=== PATIENT | female | born 1940 | race Asian ===

== ENCOUNTER 2016-07-13 13:29 | Inpatient (IN) | payer OTHER ==
[~2016-07-13] VITALS: Ht 154.9 cm; Wt 69.9 kg
[~2016-07-13 13:29] MED LIST: BENADRYL ALLERG25 M1 PO; BUFFERIN LOW DO81 MG PO; Benadryl TOP; ELAVIL25 MG PO; HYGROTON 25MG T25 MG PO; LANTUS SOLOS100 U/ML SC; LASIX20 MG PO; LEVEMIR 10100 UNITS/ SC; LEVEMIR FLEX100 U/M1 SC; LEVEMIR100 U/ML SC; LIDODERM1 EACH TOP; LYRICA25 MG PO; MYCOSTATIN POWD15 GM TOP; NORVASC 5MG TAB5 MG PO; NOVOLOG100 U/ML SC; POTASSIUM CHLO10 ME1 PO; POTASSIUM CHLO10 ME2 PO; POTASSIUM CHLOR PO; PRAVASTATIN SOD40 M1 PO; PROTONIX 40MG T40 MG PO; SYNTHROID50 MCG PO; TRADJENTA5 MG PO; VITAMIN D1000 IU PO; ZETIA10 MG PO
--- NOTE | 2016-07-13 13:35 | NUR ---
75 YEAR OLD FEMALE TO ER FROM [facility] BY AMBULANCE FOR COUGH X 3 DAYS AND THIS AM SPUTUMM NOTED TO BE STRAKED WITH LIGHT BLOOD. PT ALERT AND ORIENTED AND DOES NOT SPEAK IRISH, SON AT BEDSIDE
--- NOTE | 2016-07-13 13:45 | ED GENERAL ADULT ---
History of Present Illness General Chief Complaint: Upper Respiratory Sx/Fever Stated Complaint: COUGH/BLOOD SPUTUM Source: family, old records Exam Limitations: dementia, language barrier Vital Signs & Intake/Output Vital Signs & Intake/Output Vital Signs Date Time Temp Pulse Resp B/P Pulse O2 O2 Flow FiO2 Ox Delivery Rate 07/13 1722 96.7 79 18 139/65 97 07/13 1451 98.1 74 18 148/72 99 Room Air 07/13 1355 99 Room Air 07/13 1333 97.0 84 18 139/61 98 Room Air Allergies Coded Allergies: NO KNOWN ALLERGIES (08/01/14) Reconcile Medications Amitriptyline Hydrochloride (Elavil) 25 MG TAB 25 MG PO AT BEDTIME LEG PAIN Aspirin (Children's Aspirin) 81 MG TAB 81 MG PO DAILY HEART Cholecalciferol (Vitamin D3) 1,000 IU TAB 1 TAB PO DAILY BONES (Reported) Citalopram Hydrobromide (Citalopram HBr) 10 MG TABLET 1 TAB PO DAILY MENTAL HEALTH (Reported) Esomeprazole (Nexium) 40 MG CAPSULE.DR 1 CAP PO DAILY GI (Reported) Ezetimibe (Zetia) 10 MG TAB 1 TAB PO DAILY CHOLESTEROL (Reported) Furosemide 80 MG TABLET 1 TAB PO BID WATER PILL (Reported) Insulin Aspart, Recombinant (Novolog) 100 U/ML FELTON 0 UNITS SC TIDAC/HS diabetes Mealtime sliding scale: Fingerstick less than 80: initiate hypoglycemia protocol 80-150: 6 UNITS 151-200: 7 units 201-250: 8 units 251-300: 10 units 301-350: 12 units 351-400: 14 units more than 400: plus 16 units Bedtime sliding scale: Fingerstick Less than 80: initiate hypoglycemia protocol 80-250: no change 251-300: 2 units 301-350: 3 units 351-400: 4 units Insulin Detemir (Levemir) 100 UNIT/ML VIAL 60 U SC BID DM (Reported) Levothyroxine Sodium (Synthroid) 50 MCG TABLET 1 TAB PO DAILY AC THYROID ( Reported) Lidocaine (Lidoderm) 5 % ADH..PATCH 1 PAT TOP DAILY PAIN (Reported) may wear up to 12 hours Mirtazapine 15 MG TABLET 0.5 TAB PO QPM SLEEP (Reported) Potassium Chloride [address] TAB PO DAILY SUPPLEMENT (Reported) Pregabalin (Lyrica) 25 MG CAP 25 MG PO TID LEG PAIN Sitagliptin Phosphate (Januvia) 25 MG TABLET 1 TAB PO DAILY DM (Reported) Triage Note: 75 YEAR OLD FEMALE TO ER FROM [facility] BY AMBULANCE FOR COUGH X 3 DAYS AND THIS AM SPUTUMM NOTED TO BE STRAKED WITH LIGHT BLOOD. PT ALERT AND ORIENTED AND DOES NOT SPEAK IRAQI, SON AT BEDSIDE Triage Nurses Notes Reviewed? yes Onset: Abrupt Duration: day(s): (3), constant, continues in ED Timing: recent history HPI: 75-year-old female comes into emergency room from nursing facility for cough this been going on for the past few days with mucus production. Patient has been increasingly confused. Patient has a history of Alzheimer's dementia and also does not speak any R[place]an so history is very limited. Son used for translation. Patient currently denies any fever vomiting chest pain shortness of breath. Denies any abdominal pain. Denies any other associated symptoms. (SHAY DUFFY) Past History Travel History Traveled to [place] past 21 day No Medical History Any Pertinent Medical History? 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 History of MRSA: Yes History of VRE: No History of CDIFF: No Pneumonia Vaccine: 05/19/15 Influenza Vaccine: 05/22/15 Surgical History Surgical History: non-contributory Psychosocial History Who do you live with Son Services at Home None What is your primary language Laurie Tobacco Use: Never used ETOH Use: denies use Illicit Drug Use: denies illicit drug use Family History Family History, If Any: BROTHER, ; Cause: History of chronic renal failure. Relation not specified for: FH: kidney failure Hx Contributory? No (SHAY DUFFY) Review of Systems Review of Systems Constitutional: Reports: no symptoms. EENTM: Reports: no symptoms. Respiratory: Reports: see HPI. Cardiovascular: Reports: no symptoms. GI: Reports: no symptoms. Genitourinary: Reports: no symptoms. Musculoskeletal: Reports: no symptoms. Skin: Reports: no symptoms. Neurological/Psychological: Reports: see HPI. Hematologic/Endocrine: Reports: no symptoms. Immunologic/Allergic: Reports: no symptoms. All Other Systems: Reviewed and Negative (SHAY DUFFY) Physical Exam Physical Exam General Appearance: alert, awake, mild distress Head: atraumatic, normal appearance Eyes: Bilateral: normal appearance, EOMI. Ears, Nose, Throat: normal pharynx, normal ENT inspection Neck: normal inspection, full range of motion Respiratory: normal breath sounds, no respiratory distress Cardiovascular: regular rate/rhythm Gastrointestinal: soft, non-tender Back: normal inspection Extremities: normal inspection, no edema Neurologic/Psych: awake, alert Skin: intact, PATIENT IS ERYTHEMATOUS Core Measures ACS in differential dx? Yes CVA/TIA Diagnosis: No Severe Sepsis Present: No Septic Shock Present: No (SHAY DUFFY) Progress Differential Diagnoses I considered the following diagnoses in my evaluation of the patient: Pneumonia , bronchitis, pulmonary embolism, TN, sepsis, Plan of Care: Orders Procedure Date/time Status Heart Healthy Diet 07/13 D Active Patient Data 07/13 1729 Active Chamberlain, Insertion/Removal/Asses 07/13 1724 Active CULTURE,URINE 07/13 1724 Active Admit to inpatient 07/13 1520 Active Vital Signs 07/13 1520 Active Code Status 07/13 1520 Active Telemetry/Chemistry Technician 07/13 1444 Active Add-on Test (ER Only) 07/13 1439 Active B-TYPE NATRIURETIC PEP (BNP) 07/13 1409 Complete Intake & Output 07/13 1354 Active URINALYSIS 07/13 1336 Complete TROPONIN LEVEL 07/13 1336 Complete COMPREHENSIVE METABOLIC PANEL 07/13 1336 Complete CBC WITHOUT DIFFERENTIAL 07/13 1336 Complete EKG 07/13 1336 Active Laboratory Tests 07/13/16 1554: Urine Color STRAW, Urine Clarity CLEAR, Urine pH 6.5, Ur Specific [place] <= 1.005, Urine Protein NEG, Urine Ketones NEG, Urine Nitrite NEG, Urine Bilirubin NEG, Urine Urobilinogen 0.2, Ur Leukocyte Esterase SMALL H, Ur Microscopic SEDIMENT EXAMINED, Urine RBC 1-3, Urine WBC 3-5 H, Ur Epithelial Cells RARE, Urine Mucus RARE, Urine Hemoglobin MOD H, Urine Glucose NEG 07/13/16 1409: Anion Gap 11, Estimated GFR 14 L, BUN/Creatinine Ratio 13.0, Glucose 108 H, Calcium 8.1 L, Total Bilirubin 0.6, AST 24, ALT 30, Alkaline Phosphatase 97, Troponin I 0.02, Hbw-G-Wdwvyubmctx Pept 362 H, Total Protein 8.0, Albumin 3.6, Globulin 4.4 H, Albumin/Globulin Ratio 0.8 L, CBC w Diff NO MAN DIFF REQ, RBC 3.74 L, MCV 87.9, MCH 29.2, RDW 15.6 H, MPV 7.4, Gran % 68.1, Lymphocytes % 18.5 L, Monocytes % 8.6, Eosinophils % 4.4, Basophils % 0.4, Absolute Granulocytes 6.4, Absolute Lymphocytes 1.7, Absolute Monocytes 0.8 H, Absolute Eosinophils 0.4, Absolute Basophils 0, PUBS MCHC 33.2 Microbiology 07/13 1724 URINE ROUT: Urine Culture - ORD Diagnostic Imaging: Viewed by Me: Radiology Read. Discussed w/RAD: Radiology Read. Radiology Impression: SERVICE DATE: 07/13/16 EXAM TYPE: RAD - XRY- PORTABLE CHEST XRAY EXAMINATION: XR PORTABLE CHEST CLINICAL INFORMATION: Cough. Assess for pneumonia. COMPARISON: 05/21/2015 TECHNIQUE: Portable AP view of the chest was obtained. FINDINGS: Heart size remains mildly prominent. Low lung volumes with diffuse increased prominence and indistinctness to the lung markings are trace pleural effusions at both bases. More focal left lower lobe airspace disease. No ectopic air. IMPRESSION: Findings favor relatively pronounced CHF. Correlate clinically. Question of superimposed left lower lobe pneumonia. Once again an element of chronic underlying lung disease question. DICTATED BY: SOCORRO WASSERMAN MD DATE/TIME DICTATED:07/13/161408 CATERERS HELPER: MAREN DATE/TIME TRANSCRIBED:07/13/161408 Initial ED EKG: normal intervals, normal p-waves, normal sinus rhythm, rate (72) (NABIL LOUIS,SHAY) Departure Departure Disposition: STILL A PATIENT Condition: Stable Clinical Impression Primary Impression: CHF exacerbation Referrals: LINDA WHEELER,MARCUS Gil (PCP/Family) Departure Forms: Customer Survey General Discharge Information Admission Note Spoke With: REGINA WHEELER,SARTHAK Documentation of Exam: Documentation of any treatments & extenuating circumstances including Concerns Regarding Discharge (functional status, medication knowledge or non-compliance, living conditions, etc.) that warrant an admission rather than observation: Patient will require IV Lasix. Cardiac telemetry. Cardiac consultation. Echocardiogram. Possibly antibiotics for superimposed pneumonia. (SHAY DUFFY) PA/SCRUBBING MACHINE OPERATOR Co-Sign Statement Statement: ED Attending supervision documentation- [X] I saw and evaluated the patient. I have also reviewed all the pertinent lab results and diagnostic results. I agree with the findings and the plan of care as documented in the PA's/SCRUBBING MACHINE OPERATOR's documentation. [X] I have reviewed the ED Record and agree with the PA's/SCRUBBING MACHINE OPERATOR's documentation. [] Additions or exceptions (if any) to the PAs/SCRUBBING MACHINE OPERATOR's note and plan are summarized below: [] (FRANSISCO WHEELER,BRIGHT) Critical Care Note Critical Care Note Critical Care Time: 30-74 min (SHAY DUFFY)
[2016-07-13] MEDS ORDERED: NEXIUM40 M1 PO (13:59)
[2016-07-13] MEDS ORDERED: CITALOPRAM HBR10 MG PO (14:00)
[2016-07-13] MEDS ORDERED: JANUVIA25 M1 PO (14:00)
[2016-07-13] MEDS ORDERED: LEVEMIR100 UNIT/1 SC (14:01)
[2016-07-13] MEDS ORDERED: MIRTAZAPINE15 M2 PO (14:02)
[2016-07-13] MEDS ORDERED: FUROSEMIDE80 M1 PO (14:02)
--- NOTE | 2016-07-13 14:15 | RADIOLOGY REPORT ---
EXAMINATION: XR PORTABLE CHEST CLINICAL INFORMATION: Cough. Assess for pneumonia. COMPARISON: 05/21/2015 TECHNIQUE: Portable AP view of the chest was obtained. FINDINGS: Heart size remains mildly prominent. Low lung volumes with diffuse increased prominence and indistinctness to the lung markings are trace pleural effusions at both bases. More focal left lower lobe airspace disease. No ectopic air. IMPRESSION: Findings favor relatively pronounced CHF. Correlate clinically. Question of superimposed left lower lobe pneumonia. Once again an element of chronic underlying lung disease question.
[2016-07-13 14:28] LABS: ABSOLUTE BASOPHIL COUNT 0 /CUMM (0.0-0.2); ABSOLUTE EOSINOPHIL COUNT 0.4 /CUMM (0.0-0.7); ABSOLUTE GRANULOCYTE CT 6.4 /CUMM (1.4-6.5); ABSOLUTE LYMPH COUNT 1.7 /CUMM (1.2-3.4); ABSOLUTE MONOCYTE COUNT 0.8 /CUMM (0.10-0.60); BASOPHIL % 0.4 % (0.0-2.0); EOSINOPHIL % 4.4 % (0-5); GRANULOCYTE % 68.1 % (42.2-75.2); HEMATOCRIT 32.9 % (37-47); MEAN CORPUSCULAR HGB 29.2 PG (27.0-31.0); MEAN CORPUSCULAR HGB CONC 33.2 G/DL (33.0-37.0); MEAN CORPUSCULAR VOLUME 87.9 FL (81.0-99.0); MEAN PLATELET VOLUME 7.4 FL (7.4-10.4); PLATELET COUNT 132 /CUMM (130-400); RBC DISTRIBUTION WIDTH 15.6 % (11.5-14.5); RED BLOOD CELL CT 3.74 /CUMM (4.20-5.40); WHITE BLOOD CELL COUNT 9.5 /CUMM (4.8-10.8)
--- NOTE | 2016-07-13 14:51 | NUR ---
PT AWAKE AND ALERT AT THIS TIME, PER PA PT MEDICATED WITH LASIX 40 MG IV AND 1/2 INCH NITRO PASTE APPLIED TO L SIDE CHEST, PT TO BE ADMITTED FOR CHRONIC RENAL FAILURE AND PULMONARY EDEMA, PT CONTINUES TOCOUGH PRODUCTIVE OF CLEAR SPUTUM WITH NO BLOOD NOTED AT THIS TIME, FAMILY AT BEDSIDE TO TRANSLATE FOR PT . PT DENIES CP OR FEELING SOB. CALL [facility] IN [place], SON STATES THAT PT KNOWS WHEN SHE HAS TO GO TO THE BATHROOM
--- NOTE | 2016-07-13 15:54 | NUR ---
THIS NURSE AT BEDSIDE TO STRAIGHT CATH PT, PT ABD FIRM AND DISTENDED , PTS FAMILY AT BEDSIDE TO EXPLAIN TO PT WHAT THIS NURSE WOULD BE DOING, PT STRAIGHT CATH FOR 1000CC CLEAR YELLOW URINE AT THIS TIME
--- NOTE | 2016-07-13 16:36 | NUR ---
PT TO CT SCAN
--- NOTE | 2016-07-13 17:11 | CT SCAN REPORT ---
EXAMINATION: CT CHEST WITHOUT CONTRAST CLINICAL INFORMATION: Shortness of breath, cough COMPARISON: January 06, [address] scan TECHNIQUE: Multidetector volumetric CT imaging of the chest was done. Axial MIP volume rendering provided. Sagittal and coronal reformatted images were obtained. DLP: 164.51 mGy-cm FINDINGS: LUNGS: Presence of breathing artifact limits evaluation of the pulmonary parenchyma. There is mosaic attenuation of bilateral pulmonary parenchyma. There is bilateral increased pulmonary interstitial markings with lower lobe and dependent part predominance. Mild pulmonary venous congestion also seen. Findings represent some degree of interstitial pulmonary edema. There is a 5 mm area of groundglass opacity there are small bilateral scattered areas of groundglass opacities which could be part of the general edematous process. The findings are fairly similar to December 2015 CT scan. MEDIASTINUM: The cardiac size is mildly enlarged. Aortic valve calcifications are present. Atherosclerotic calcifications of aortic arch and left circumflex coronary artery present. No pericardial effusion. There is a small hiatal hernia. The thoracic esophagus is mildly distended and air-filled, similar to comparison exam. The trachea and sayda are unremarkable. There are subcentimeter right paratracheal and right hilar lymph nodes which have not changed since comparison CT scan. They are not pathologic based on CT size criteria. The most prominent right paratracheal lymph node measures 8 mm in short axis, axial image 12/47 of series 2. PLEURA: There is no pleural effusion. No pleural mass or thickening. AXILLA: No lymphadenopathy. UPPER ABDOMEN: Unremarkable. OSSEOUS STRUCTURES: Unremarkable. IMPRESSION: 1. Mild cardiomegaly, prominence of the central pulmonary venous system and increased interstitial markings bilaterally, with lower and dependent lung predominance. Findings are similar to December 2015 CT scan and could represent some degree of interstitial pulmonary edema. However possibility of interstitial lung disease is not excluded. Clinical correlation is advised. 2. Atherosclerosis. 3. Hiatal hernia.
--- NOTE | 2016-07-13 17:11 | NUR ---
PT RETURNED FROM CT SCAN, FAMILY AT BEDSIDE
--- NOTE | 2016-07-13 17:41 | NUR ---
PTS SISTER WOULD LIKE TO BE CALLED IF THERE IS ANY PROBLEMS, ALONDRA [phone]. PTS FAMILY CALLED STAFF TO ROOM DUE TO PT STATED THAT SHE HAD TO URINATE, PT PLACED ON BED GRAY BUT COMPLAINED OF A LOT OF PAIN IN HER ABDOMEN AND THAT SHE WAS UNABLE TO URINATE. PA AWARE AND VAZQUEZ CATH ORDERED AND PLACED , DRAINED 650 CC CLEAR YELLOW URINE, ABD LESS DISTENDED AND PT DENIES PAIN.
--- NOTE | 2016-07-13 17:47 | History & Physical ---
MAKAYLA FORRESTER MD 07/13/16 1735: General Information and HPI Source of Information: family, old records Exam Limitations: dementia, language barrier History of Present Illness: Patient is an Belarusian speaking 75-year-old female with significant past medical history of Alzheimer's dementia, hypertension, hyperlipidemia, CHF with preserved ejection fraction, diabetes, chronic kidney disease stage 4, BIBA from local extended care facility with anorexia, weakness since 1 month, nasal bleeding since 5 days and cough since last 3 days and which was occasionally streaked with blood. She was also complaining of retention of the urine and stool since 1 day. According to her, she was not able to pass stool and the urine since one day and then she comes into the emergency room. In ED she was catheterized and thousand liter of urine was passed out. She also claims that at the facility, her blood sugar were regularly monitored and which falls within the normal range. Allergies/Medications Allergies: Coded Allergies: NO KNOWN ALLERGIES (08/01/14) Past History Travel History Traveled to [place] past 21 day No Medical History Neurological: Alzheimer's disease EENT: NONE Cardiovascular: hypertension, hyperlipidemia Respiratory: NONE Gastrointestinal: NONE Hepatic: NONE Renal: CHRONIC RENAL FAILURE edema Musculoskeletal: NONE Psychiatric: NONE Endocrine: diabetes Blood Disorders: NONE Cancer(s): NONE BRAKE RELINER/Reproductive: NONE Other Medical Hx: Urinary retention along with severe hypokalemia for which she was discharged [facility] March of this year. History of MRSA: Yes History of VRE: No History of CDIFF: No Surgical History Surgical History: non-contributory Past Family/Social History Family History Relations & Conditions if any BROTHER, ; Cause: History of chronic renal failure. Relation not specified for: FH: kidney failure Psychosocial History Who Do You Live With? self Services at Home: None Primary Language: Belarusian ETOH Use: denies use Illicit Drug Use: denies illicit drug use Name of POA/HCP: Teo Zamarripa---son Functional Ability ADLs Independent: dressing, eating, toileting, bathing. Ambulation: walker Review of Systems Review of Systems Constitutional: Reports: malaise, weakness. Denies: chills, diaphoresis, fever. EENTM: Denies: no symptoms, blurred vision. Cardiovascular: Denies: chest pain, edema, orthopena, palpitations, peripheral edema. Respiratory: Reports: cough, hemoptysis. Denies: orthopnea, short of breath, sputum production, stridor. GI: Reports: constipation, distention, changes in stool. Denies: abdominal pain, bloating, diarrhea, bowel incontinence, melena, nausea, bloody stool. Genitourinary: Denies: discharge, dysuria, frequency, hematuria, hesitation, nocturia, pain. Musculoskeletal: Reports: joint swelling. Denies: back pain, gout, joint pain, muscle pain, muscle stiffness, neck pain. Skin: Denies: no symptoms. Neurological/Psychological: Denies: no symptoms. Hematologic/Endocrine: Denies: no symptoms. Exam & Diagnostic Data Last 24 Hrs of Vital Signs/I&O Vital Signs Date Time Temp Pulse Resp B/P Pulse O2 O2 Flow FiO2 Ox Delivery Rate 07/13 2005 96.8 73 18 130/53 98 Room Air 07/13 1839 96 Room Air 07/13 1722 96.7 79 18 139/65 97 07/13 1451 98.1 74 18 148/72 99 Room Air 07/13 1355 99 Room Air 07/13 1333 97.0 84 18 139/61 98 Room Air Intake & Output 07/13 1600 07/13 0800 07/13 0000 Intake Total 0 Output Total Balance 0 Intake, Oral 0 Patient 72.575 kg Weight Physical Exam General Appearance Alert, Oriented X3, Cooperative, Mild Distress Skin red flushed face,multiple petechial spots on the face and the upper chest HEENT Atraumatic, PERRLA, EOMI Neck Supple, No JVD Cardiovascular Regular Rate, Normal S1, Normal S2, No Murmurs Lungs bilateral basal crepts Abdomen Soft, No Tenderness, dsitended Neurological Normal Speech Extremities No Clubbing, No Cyanosis, non pitting bilateral edema Vascular Normal Pulses, Pulses Symmetrical Assessment/Plan Assessment: Patient is an Belarusian speaking 75-year-old female with significant past medical history of Alzheimer's dementia, hypertension, hyperlipidemia, CHF with preserved ejection fraction, diabetes, chronic kidney disease stage 4, BIBA from local extended care facility with anorexia, weakness since 1 month, nasal bleeding since 5 days and cough since last 3 days and which was occasionally streaked with blood. She was also complaining of retention of the urine and stool since 1 day. Vital signs at the time of admission -temperature 98.1, pulse 75, respiratory rate 18, blood pressure 148/72, SPO2 99% on room air Chest x-ray 07/13/2016 Heart size remains mildly prominent. Low lung volumes with diffuse increased prominence and indistinctness to the lung markings are trace pleural effusions at both bases favor relatively pronounced CHF. More focal left lower lobe airspace disease suggesting of superimposed left lower lobe pneumonia. CT chest, 07/13/2016 Mild cardiomegaly, prominence of the central pulmonary venous system and increased interstitial markings bilaterally, with lower and dependent lung predominance. Findings are similar to December 2015 CT scan and could represent some degree of interstitial pulmonary edema. However possibility of interstitial lung disease is not excluded. Clinical correlation is advised. Problem list- Hiatal hernia Anemia Alzheimer's dementia, hypertension, hyperlipidemia, CHF with preserved ejection fraction, Type 2 diabetes, chronic kidney disease stage 4 Plan - * We will monitor patient into telemetry * We will regularly monitor blood sugar level 3 times a day and bedtime and adjust NovoLog according to sliding scale * We will give IV Lasix 40 milligrams twice a day * Daily weight * Strict intake output charting * Watch for bleeding * We will place cardiology consult and followed the recommendation * We will follow echocardiogram * We will do serial troponins and EKG to rule out coronary artery disease * We will continue all previous medications * Diet-diabetic diet * DVT prophylaxis-ALP S/heparin * CODE STATUS -DNR/DNI, and discussed the patient in the she says she doesn't want any heroic measures. As Ranked By This Provider Problem List: 1. CHF exacerbation 2. Acute on chronic renal failure 3. Diabetes 4. Anemia Core Measures/Miscellaneous Acute Coronary Syndrome ACS Diagnosis: No Cerebrovascular Accident CVA/TIA Diagnosis: No Congestive Heart Failure CHF Diagnosis: Yes Venous Thromboembolism VTE Risk Factors: Age > 40 VTE Prophylaxis Ordered Inpt: Mechanical (ALPS[facility]TEDS) [facility] prophylaxis d/t: No contraindications No VTE Pharm Prophylaxis d/t: No contraindications VTE Diagnosis: No VTE Type: NONE VTE Confirmed by (Test): NONE Severe Sepsis Severe Sepsis Present: No Septic Shock Septic Shock Present: No Miscellaneous Documentation Attending Case Discussed With: SARTHAK TAPIA MD Primary Care Physician: MARCUS MCKEON MD Patient sees these Specialists endocrine Level of Patient Care: Telemetry SARTHAK TAPIA MD 07/13/16 2103: Attending MD Review Statement Attending Statement Attending MD Statement: examined this patient, discuss w/resident/PA/SPLITTING MACHINE FEEDER, agreed w/resident/PA/SPLITTING MACHINE FEEDER, discussed with family, reviewed EMR data (avail), discussed with nursing, reviewed images, amended to note Attending Assessment/Plan: 75 y/o F with pmh sig for Alzheimer's dementia, hypertension, hyperlipidemia, ch diastolic CHF with preserved ejection fraction, diabetes, chronic kidney disease stage 4 who presented [place] with [place], hemoptysis. Pt is not a good historian but his son visited her today and found her sick with cough and hemoptysis. Pt herself denies any sob. In the ER CXR and chest CT are consistent wityh interstitial edema. Pt denies any cp/ orthopnea. Vital Signs Date Time Temp Pulse Resp B/P Pulse O2 O2 Flow FiO2 Ox Delivery Rate 07/13 2005 96.8 73 18 130/53 98 Room Air 07/13 1839 96 Room Air 07/13 1722 96.7 79 18 139/65 97 07/13 1451 98.1 74 18 148/72 99 Room Air 07/13 1355 99 Room Air 07/13 1333 97.0 84 18 139/61 98 Room Air on exam; awake, nad. cv; s1,s2, rrr. resp; + mild b/l crackles. abd; soft,m nt, bs+ ext; no edema. Laboratory Tests 07/13 07/13 1956 1554 Chemistry Troponin I (< 0.11 ng/ml) 0.03 Urines Urine Color (YEL,AMB,STR) STRAW Urine Clarity (CLEAR) CLEAR Urine pH (5.0 - 8.0) 6.5 Ur Specific [place] (1.001 - 1.035) <= 1.005 Urine Protein (NEG,<30 MG/DL) NEG Urine Ketones (NEG) NEG Urine Nitrite (NEG) NEG Urine Bilirubin (NEG) NEG Urine Urobilinogen (0.1 - 1.0 EU/dl) 0.2 Ur Leukocyte Esterase (NEG) SMALL H Ur Microscopic SEDIMENT EXAMINED Urine RBC (0 - 5 /HPF) 1-3 Urine WBC (0 - 2 /HPF) 3-5 H Ur Epithelial Cells (NONE,FEW) RARE Urine Mucus (FEW,NONE) RARE Urine Hemoglobin (NEG) MOD H Urine Glucose (N MG/DL) NEG 02/04 1409 Chemistry Sodium (137 - 145 mmol/L) 139 Potassium (3.5 - 5.1 mmol/L) 3.6 Chloride (98 - 107 mmol/L) 100 Carbon Dioxide (22 - 30 mmol/L) 28 Anion Gap (5 - 16) 11 BUN (7 - 17 mg/dL) 43 H Creatinine (0.5 - 1.0 mg/dL) 3.3 H Estimated GFR (>60 ml/min) 14 L BUN/Creatinine Ratio (7 - 25 %) 13.0 Glucose (65 - 99 mg/dL) 108 H Calcium (8.4 - 10.2 mg/dL) 8.1 L Total Bilirubin (0.2 - 1.3 mg/dL) 0.6 AST (14 - 36 U/L) 24 ALT (9 - 52 U/L) 30 Alkaline Phosphatase (<127 U/L) 97 Troponin I (< 0.11 ng/ml) 0.02 Ela-P-Ttcblicdigm Pept (<125 pg/mL) 362 H Total Protein (6.3 - 8.2 g/dL) 8.0 Albumin (3.5 - 5.0 g/dL) 3.6 Globulin (1.9 - 4.2 gm/dL) 4.4 H Albumin/Globulin Ratio (1.1 - 2.2 %) 0.8 L Hematology CBC w Diff NO MAN DIFF REQ WBC (4.8 - 10.8 /CUMM) 9.5 RBC (4.20 - 5.40 /CUMM) 3.74 L Hgb (12.0 - 16.0 G/DL) 10.9 L Hct (37 - 47 %) 32.9 L MCV (81.0 - 99.0 FL) 87.9 MCH (27.0 - 31.0 PG) 29.2 RDW (11.5 - 14.5 %) 15.6 H Plt Count (130 - 400 /CUMM) 132 MPV (7.4 - 10.4 FL) 7.4 Gran % (42.2 - 75.2 %) 68.1 Lymphocytes % (20.5 - 51.1 %) 18.5 L Monocytes % (1.7 - 9.3 %) 8.6 Eosinophils % (0 - 5 %) 4.4 Basophils % (0.0 - 2.0 %) 0.4 Absolute Granulocytes (1.4 - 6.5 /CUMM) 6.4 Absolute Lymphocytes (1.2 - 3.4 /CUMM) 1.7 Absolute Monocytes (0.10 - 0.60 /CUMM) 0.8 H Absolute Eosinophils (0.0 - 0.7 /CUMM) 0.4 Absolute Basophils (0.0 - 0.2 /CUMM) 0 PUBS MCHC (33.0 - 37.0 G/DL) 33.2 All imaging reviewed. A/P;75 y/o F with pmh sig for Alzheimer's dementia, hypertension, hyperlipidemia , ch diastolic CHF with preserved ejection fraction, diabetes, chronic kidney disease stage 4 admitted with acute CHF, Interstitial edema. Tele admit. IV diuretics, strict Is/Os/ daily weights. Trend trops/ cardiology eval and check ECHO. Confirm and continue home meds. Pharmacologic DVt px. DNR/I. MISSAEL WHEELER,[facility] 07/13/16 8326: General Information and HPI Allergies/Medications Home Med list Aspirin (Children's Aspirin) 81 MG TAB 81 MG PO DAILY HEART Cholecalciferol (Vitamin D3) 1,000 IU TAB 1 TAB PO DAILY BONES (Reported) Citalopram Hydrobromide (Citalopram HBr) 10 MG TABLET 1 TAB PO DAILY MENTAL HEALTH (Reported) Esomeprazole (Nexium) 40 MG CAPSULE.DR 1 CAP PO DAILY GI (Reported) Ezetimibe (Zetia) 10 MG TAB 1 TAB PO DAILY CHOLESTEROL (Reported) Furosemide 80 MG TABLET 1 TAB PO BID WATER PILL (Reported) Insulin Aspart, Recombinant (Novolog) 100 U/ML FELTON 0 UNITS SC TIDAC/HS diabetes Mealtime sliding scale: Fingerstick less than 80: initiate hypoglycemia protocol 80-150: 6 UNITS 151-200: 7 units 201-250: 8 units 251-300: 10 units 301-350: 12 units 351-400: 14 units more than 400: plus 16 units Bedtime sliding scale: Fingerstick Less than 80: initiate hypoglycemia protocol 80-250: no change 251-300: 2 units 301-350: 3 units 351-400: 4 units Insulin Detemir (Levemir) 100 UNIT/ML VIAL 60 U SC BID DM (Reported) Levothyroxine Sodium (Synthroid) 50 MCG TABLET 1 TAB PO DAILY AC THYROID ( Reported) Lidocaine (Lidoderm) 5 % ADH..PATCH 1 PAT TOP DAILY PAIN (Reported) may wear up to 12 hours Mirtazapine 15 MG TABLET 0.5 TAB PO QPM SLEEP (Reported) Potassium Chloride [address] TAB PO DAILY SUPPLEMENT (Reported) Pregabalin (Lyrica) 25 MG CAP 25 MG PO TID LEG PAIN Sitagliptin Phosphate (Januvia) 25 MG TABLET 1 TAB PO DAILY DM (Reported) Resident Review Statement Resident Statement: examined this patient, discussed with risk management intern, agreed with risk management intern, reviewed EMR data (avail) Other Findings: 75 year-old woman resident of [facility] with a PMHx of long standing DM, HTN, Diabetic Nephropathy and CKD Stage 4, and CHF with preserved EF who was admitted with complaints of generalized weakness and poor appetite and PO intake of 4 months duration and cough productive of blood streaked sputum for 5 days. On admission she was febrile and her vitals showed Tmax 98.1 F, HR 84 bpm, RR 18 /min, BP 139/61 mmhg, satting 98 % on room air. Physical Exam General Appearance Alert, Oriented X3, Cooperative, Mild Distress Skin red flushed face,multiple petechial spots on the face and the upper chest HEENT Atraumatic, PERRLA, EOMI Neck Supple, No JVD Cardiovascular Regular Rate, Normal S1, Normal S2, No Murmurs Lungs bilateral basal crepts Abdomen Soft, No Tenderness, dsitended Neurological Normal Speech Extremities No Clubbing, No Cyanosis, non pitting bilateral edema Vascular Normal Pulses, Pulses Symmetrical Labs show WBC o 9.5/cumm, Hb of 10.9, HCT of 32.9% and platelet of 132,000/cumm. Chemistries show creatinine of 3.3 mg/dl and BUN of 43. Pro-BNP was 362. Urinalysis was positive for small leukocyte esterase, but negative for nitrites with 3-5 WBC and moderate urine hemoglobin. AN EKG showed normal sinus rhythm. Her Chest X-ray revealed findings favoring relatively pronounced CHF and a Chest CT showed a similar picture . Problem list 1. CHF with preserved EF 2. Rule out NSTEMI 3. HTN 4. CKG stage 4 5. Type 2 Diabetes mellitus 6. Hyperlipidemia 7. Alzheimers dementia Plan Admit to telemetry unit Oxygen by nasal canula to keep SPO2 >92% IV lasix 40 mg BID Strict fluid input output monitoring CHF diet Daily weights Serial EKGs and troponins to rule out ACS Cardiology consult and Echocardiogram in the AM Accuchek TIDAC/HS for diabetes Stop Januvia and start novolog sliding scale TIDAC/HS COntinue levemir 60 units BID for diabetes Continue home medications: PO nexium 40 mg daily, lyrica 25 mg TID, zetia, remeron, celexa Continue aspirin 81 mg daily DVT prophylaxis SC heparin 5000 Units Q 8 hrsy Code status is DNR
--- NOTE | 2016-07-13 17:57 | NUR ---
FOOD TRAY ORDERED
--- NOTE | 2016-07-13 18:06 | NUR ---
HOUSE STAFF AT BEDSIDE
--- NOTE | 2016-07-13 18:23 | NUR ---
pt is going to room 180-2
--- NOTE | 2016-07-13 18:38 | NUR ---
HOUSE STAFF AT BEDSIDE
--- NOTE | 2016-07-13 18:46 | NUR ---
ATTEMPTED TO CALL REPORT, PER [employer] TEAM MEMBER NURSE IS NOT AWARE OF PT AND WILL CALL BACK
--- NOTE | 2016-07-13 19:20 | NUR ---
THIS RN ATTEMPTED TO CALL REPORT. RECEIVING RN STATED SHE WILL CALL ME BACK.
--- NOTE | 2016-07-13 19:49 | NUR ---
REPORT GIVEN TO GLENYS TALLEY ON TELEMETRY.
--- NOTE | 2016-07-13 19:58 | NUR ---
REPEAT TROPONIN SENT TO LAB.
--- NOTE | 2016-07-13 20:01 | NUR ---
[facility] CALLED FOR TRANSPORT TO ROOM 180.
[2016-07-13 22:43] VITALS: BP 116/58
[2016-07-14 00:22] VITALS: BP 98/50
--- NOTE | 2016-07-14 07:58 | PN- Housestaff ---
KATARINA WHEELER,[facility] 07/14/16 0758: Subjective Follow-up For: CHF exacerbation Subjective: Seen and examined this morning. Lying comfortably in bed in no acute distress. No complaints of dizziness dizziness, chest pain, palpitation, afebrile, the right is within normal limits. Review of Systems Constitutional: Denies: chills, fever. Cardiovascular: Denies: chest pain, palpitations. Respiratory: Denies: cough, short of breath, sputum production. Gastrointestinal: Denies: abdominal pain, constipation, diarrhea, nausea, vomiting. Objective Last 24 Hrs of Vital Signs/I&O Vital Signs Date Time Temp Pulse Resp B/P Pulse O2 O2 Flow FiO2 Ox Delivery Rate 07/14 0817 98.0 75 18 134/60 96 Room Air 07/14 0022 98.1 72 18 98/50 98 Room Air 07/13 2243 98.0 68 18 116/58 95 / 2006 96.8 73 18 130/53 98 Room Air 07/13 1839 96 Room Air 07/13 1722 96.7 79 18 139/65 97 07/13 1451 98.1 74 18 148/72 99 Room Air 07/13 1355 99 Room Air 07/13 1333 97.0 84 18 139/61 98 Room Air Intake & Output 07/14 1600 07/14 0800 07/14 0000 Intake Total 400 Output Total 4750 Balance -4350 Intake, Oral 400 Output, Urine 4750 Patient 63.503 kg Weight Physical Exam General Appearance: Alert, Oriented X3, Cooperative, No Acute Distress Cardiovascular: Regular Rate, Normal S1, Normal S2, No Murmurs Lungs: bilateral basal rales Abdomen: Normal Bowel Sounds, Soft, No Tenderness Extremities: bilateral lower extremity edema 2+ Current Medications: Current Medications Sig/Leo Start time Last Medication Dose Route Stop Time Status Admin Acetaminophen 650 MG Q6 PRN 07/14 2345 AC PO Aspirin 81 MG DAILY 07/14 1000 AC 07/14 PO 1043 Cholecalciferol 1,000 IU DAILY 07/14 1000 AC 07/14 PO 1043 Citalopram 10 MG DAILY 07/14 1000 AC 07/14 Hydrobromide PO 1043 Ezetimibe 10 MG DAILY 07/14 1000 AC 07/14 PO 1044 Furosemide 40 MG 7:30 AM, & 4:30 PM 07/14 0730 AC 07/14 IV 1044 Furosemide 0 .STK-MED ONE 07/13 1444 DC IV Furosemide 40 MG ONCE ONE 07/13 1430 DC / IV 07/13 1431 1450 Heparin Sodium 5,000 UNIT Q8 07/13 2200 AC 07/14 (Porcine) SC 0046 Insulin Aspart 0 TIDAC/HS 07/14 0800 AC SC Insulin Detemir 60 UNITS BID 07/13 2200 AC 07/14 SC 1043 Levothyroxine Sodium 0.05 MG DAILY AC 07/14 0700 AC 07/14 PO 1044 Lidocaine 1 PAT DAILY 07/14 1000 AC 07/14 EXT 1103 Mirtazapine 7.5 MG QPM 07/13 2200 AC 07/14 PO 0047 Nitroglycerin 0 .STK-MED ONE 07/13 1444 DC TOP Nitroglycerin 0.5 GM ONCE ONE 07/13 1430 DC 07/13 TOP 07/13 1431 1450 Omeprazole 40 MG DAILY AC 07/14 0700 AC 07/14 PO 1044 Patient Medication 1 UNIT ONE NR 07/13 1915 DC Teaching ED 07/13 1930 Potassium Chloride 10 MEQ DAILY 07/14 1000 AC 07/14 PO 1043 Pregabalin 25 MG TID 07/13 2200 AC 07/14 PO 1043 Last 24 Hrs of Lab/Mario Results Last 24 Hrs of Labs/Mics: Laboratory Tests 07/14/16 0935: Troponin I < 0.01 07/13/16 1956: Troponin I 0.03 07/13/16 1554: Urine Color STRAW, Urine Clarity CLEAR, Urine pH 6.5, Ur Specific [place] <= 1.005, Urine Protein NEG, Urine Ketones NEG, Urine Nitrite NEG, Urine Bilirubin NEG, Urine Urobilinogen 0.2, Ur Leukocyte Esterase SMALL H, Ur Microscopic SEDIMENT EXAMINED, Urine RBC 1-3, Urine WBC 3-5 H, Ur Epithelial Cells RARE, Urine Mucus RARE, Urine Hemoglobin MOD H, Urine Glucose NEG 07/13/16 1409: Anion Gap 11, Estimated GFR 14 L, BUN/Creatinine Ratio 13.0, Glucose 108 H, Calcium 8.1 L, Total Bilirubin 0.6, AST 24, ALT 30, Alkaline Phosphatase 97, Troponin I 0.02, Lbm-I-Gkbubkxhmpg Pept 362 H, Total Protein 8.0, Albumin 3.6, Globulin 4.4 H, Albumin/Globulin Ratio 0.8 L, CBC w Diff NO MAN DIFF REQ, RBC 3.74 L, MCV 87.9, MCH 29.2, RDW 15.6 H, MPV 7.4, Gran % 68.1, Lymphocytes % 18.5 L, Monocytes % 8.6, Eosinophils % 4.4, Basophils % 0.4, Absolute Granulocytes 6.4, Absolute Lymphocytes 1.7, Absolute Monocytes 0.8 H, Absolute Eosinophils 0.4, Absolute Basophils 0, PUBS MCHC 33.2 Microbiology 07/13 1554 URINE ROUT: Urine Culture - RES Assessment/Plan Assessment: 75 year-old woman resident of [facility] with a PMHx of long standing DM, HTN, Diabetic Nephropathy and CKD Stage 4, and CHF with preserved EF who was admitted with complaints of generalized weakness and poor appetite and PO intake of 4 months duration and cough productive of blood streaked sputum for 5 days. On admission she was febrile and her vitals showed Tmax 98.1 F, HR 84 bpm, RR 18 /min, BP 139/61 mmhg, satting 98 % on room air. Physical Exam General Appearance Alert, Oriented X3, Cooperative, Mild Distress Skin red flushed face,multiple petechial spots on the face and the upper chest HEENT Atraumatic, PERRLA, EOMI Neck Supple, No JVD Cardiovascular Regular Rate, Normal S1, Normal S2, No Murmurs Lungs bilateral basal crepts Abdomen Soft, No Tenderness, dsitended Neurological Normal Speech Extremities No Clubbing, No Cyanosis, non pitting bilateral edema Vascular Normal Pulses, Pulses Symmetrical Labs show WBC o 9.5/cumm, Hb of 10.9, HCT of 32.9% and platelet of 132,000/cumm. Chemistries show creatinine of 3.3 mg/dl and BUN of 43. Pro-BNP was 362. Urinalysis was positive for small leukocyte esterase, but negative for nitrites with 3-5 WBC and moderate urine hemoglobin. AN EKG showed normal sinus rhythm. Her Chest X-ray revealed findings favoring relatively pronounced CHF and a Chest CT showed a similar picture . Problem list 1. CHF with preserved EF 2. Rule out NSTEMI 3. HTN 4. CKG stage 4 5. Type 2 Diabetes mellitus 6. Hyperlipidemia 7. Alzheimers dementia Patient was admitted to telemetry floor yesterday. Oxygen by nasal canula to keep SPO2 >92% IV lasix 40 mg BID Strict fluid input output monitoring, negative balance of 4350 in the last 24 hours. CHF diet Daily weights Serial EKGs and troponins have been negative for any evidence of acute cardiac syndrome. Cardiology following, will follow-up recommendations. Echocardiogram pending Accuchek TIDAC/HS for diabetes Stop Januvia and start novolog sliding scale TIDAC/HS COntinue levemir 60 units BID for diabetes Continue home medications: PO nexium 40 mg daily, lyrica 25 mg TID, zetia, remeron, celexa Continue aspirin 81 mg daily DVT prophylaxis SC heparin 5000 Units Q 8 hrsy Code status is DNR Problem List: 1. CHF exacerbation Pain Ratin Pain Location: None Pain Goal: Remain pain free Pain Plan: Mild pain pathway Tomorrow's Labs & Rationales: bep sangeeta TAPIA MD,SARTHAK 07/14/16 1306: Attending MD Review Statement Attending Statement Attending MD Statement: examined this patient, discuss w/resident/PA/WILDLIFE POLICY PROFESSIONAL, agreed w/resident/PA/WILDLIFE POLICY PROFESSIONAL, discussed with family, reviewed EMR data (avail), discussed with nursing, reviewed images, amended to note Attending Assessment/Plan: Patient seen and examined, feeling better than yesterday but still not back to baseline. She has diuresed significant amounts of urine in the last 24 hours. Vital Signs Date Time Temp Pulse Resp B/P Pulse O2 O2 Flow FiO2 Ox Delivery Rate 07/14 0817 98.0 75 18 134/60 96 Room Air 07/14 0022 98.1 72 18 98/50 98 Room Air 07/13 2243 98.0 68 18 116/58 95 07/13 2005 96.8 73 18 130/53 98 Room Air 07/13 1839 96 Room Air 07/13 1722 96.7 79 18 139/65 97 07/13 1451 98.1 74 18 148/72 99 Room Air 07/13 1355 99 Room Air 07/13 1333 97.0 84 18 139/61 98 Room Air on exam; aox3, nad. cv; s1,s2, rrr. resp; + b/l basal crackles. abd; soft, nt, bs+ ext; trace edema. Laboratory Tests 07/14 07/13 07/13 0935 1956 1554 Chemistry Troponin I (< 0.11 ng/ml) < 0.01 0.03 Urines Urine Color (YEL,AMB,STR) STRAW Urine Clarity (CLEAR) CLEAR Urine pH (5.0 - 8.0) 6.5 Ur Specific [place] (1.001 - 1.035) <= 1.005 Urine Protein (NEG,<30 MG/DL) NEG Urine Ketones (NEG) NEG Urine Nitrite (NEG) NEG Urine Bilirubin (NEG) NEG Urine Urobilinogen (0.1 - 1.0 EU/dl) 0.2 Ur Leukocyte Esterase (NEG) SMALL H Ur Microscopic SEDIMENT EXAMINED Urine RBC (0 - 5 /HPF) 1-3 Urine WBC (0 - 2 /HPF) 3-5 H Ur Epithelial Cells (NONE,FEW) RARE Urine Mucus (FEW,NONE) RARE Urine Hemoglobin (NEG) MOD H Urine Glucose (N MG/DL) NEG 07/13 1409 Chemistry Sodium (137 - 145 mmol/L) 139 Potassium (3.5 - 5.1 mmol/L) 3.6 Chloride (98 - 107 mmol/L) 100 Carbon Dioxide (22 - 30 mmol/L) 28 Anion Gap (5 - 16) 11 BUN (7 - 17 mg/dL) 43 H Creatinine (0.5 - 1.0 mg/dL) 3.3 H Estimated GFR (>60 ml/min) 14 L BUN/Creatinine Ratio (7 - 25 %) 13.0 Glucose (65 - 99 mg/dL) 108 H Calcium (8.4 - 10.2 mg/dL) 8.1 L Total Bilirubin (0.2 - 1.3 mg/dL) 0.6 AST (14 - 36 U/L) 24 ALT (9 - 52 U/L) 30 Alkaline Phosphatase (<127 U/L) 97 Troponin I (< 0.11 ng/ml) 0.02 Yhb-M-Bomkejxrehr Pept (<125 pg/mL) 362 H Total Protein (6.3 - 8.2 g/dL) 8.0 Albumin (3.5 - 5.0 g/dL) 3.6 Globulin (1.9 - 4.2 gm/dL) 4.4 H Albumin/Globulin Ratio (1.1 - 2.2 %) 0.8 L Hematology CBC w Diff NO MAN DIFF REQ WBC (4.8 - 10.8 /CUMM) 9.5 RBC (4.20 - 5.40 /CUMM) 3.74 L Hgb (12.0 - 16.0 G/DL) 10.9 L Hct (37 - 47 %) 32.9 L MCV (81.0 - 99.0 FL) 87.9 MCH (27.0 - 31.0 PG) 29.2 RDW (11.5 - 14.5 %) 15.6 H Plt Count (130 - 400 /CUMM) 132 MPV (7.4 - 10.4 FL) 7.4 Gran % (42.2 - 75.2 %) 68.1 Lymphocytes % (20.5 - 51.1 %) 18.5 L Monocytes % (1.7 - 9.3 %) 8.6 Eosinophils % (0 - 5 %) 4.4 Basophils % (0.0 - 2.0 %) 0.4 Absolute Granulocytes (1.4 - 6.5 /CUMM) 6.4 Absolute Lymphocytes (1.2 - 3.4 /CUMM) 1.7 Absolute Monocytes (0.10 - 0.60 /CUMM) 0.8 H Absolute Eosinophils (0.0 - 0.7 /CUMM) 0.4 Absolute Basophils (0.0 - 0.2 /CUMM) 0 PUBS MCHC (33.0 - 37.0 G/DL) 33.2 A/P; 75 y/o F with pmh sig for Alzheimer's dementia, hypertension, hyperlipidemia, ch diastolic CHF with preserved ejection fraction, diabetes, chronic kidney disease stage 4 admitted with acute CHF, Interstitial edema. Currently improving. Hasn't negative balance. Likely can switch her to oral Lasix later today at her home dose. And troponins were negative. Repeat echo results are pending. Continue on other current medications. Patient on significant amount of insulin but blood sugars were running high, please monitor and adjust the dose if needed. DVT prophylaxis: Heparin subcutaneous. Discussed with patient's son at bedside.
[2016-07-14 08:17] VITALS: BP 134/60
--- NOTE | 2016-07-14 11:39 | Cons- Cardiology ---
General Information and HPI Consulting Request Date of Consult: 07/14/16 Requested By: SARHTAK TAPIA MD History of Present Illness: Ms. Zamarripa is a 75 year old female with histroy of hypertension, diastolic heart failure, diabetes and chronic renal insufficiency. The patient was sent to the ER for evaluation of a cough that began three days prior. It was productive and had evidence of blood. According to the patient she came due to these bloody noses accompanies by clots. In the ER she was noted to have a stable but elevated creatinine along with leg edema and a chest X ray that was consistent with pulmonary edema. This patient denies any current shortness of breath. She typically sleeps on two pillow but denies this is due to breathing issues. She also denies any chest discomfort, lightheadedness or palpitations. Allergies/Medications Allergies: Coded Allergies: NO KNOWN ALLERGIES (08/01/14) Home Med List: Aspirin (Children's Aspirin) 81 MG TAB 81 MG PO DAILY HEART Cholecalciferol (Vitamin D3) 1,000 IU TAB 1 TAB PO DAILY BONES (Reported) Citalopram Hydrobromide (Citalopram HBr) 10 MG TABLET 1 TAB PO DAILY MENTAL HEALTH (Reported) Esomeprazole (Nexium) 40 MG CAPSULE.DR 1 CAP PO DAILY GI (Reported) Ezetimibe (Zetia) 10 MG TAB 1 TAB PO DAILY CHOLESTEROL (Reported) Furosemide 80 MG TABLET 1 TAB PO BID WATER PILL (Reported) Insulin Aspart, Recombinant (Novolog) 100 U/ML FELTON 0 UNITS SC TIDAC/HS diabetes Mealtime sliding scale: Fingerstick less than 80: initiate hypoglycemia protocol 80-150: 6 UNITS 151-200: 7 units 201-250: 8 units 251-300: 10 units 301-350: 12 units 351-400: 14 units more than 400: plus 16 units Bedtime sliding scale: Fingerstick Less than 80: initiate hypoglycemia protocol 80-250: no change 251-300: 2 units 301-350: 3 units 351-400: 4 units Insulin Detemir (Levemir) 100 UNIT/ML VIAL 60 U SC BID DM (Reported) Levothyroxine Sodium (Synthroid) 50 MCG TABLET 1 TAB PO DAILY AC THYROID ( Reported) Lidocaine (Lidoderm) 5 % ADH..PATCH 1 PAT TOP DAILY PAIN (Reported) may wear up to 12 hours Mirtazapine 15 MG TABLET 0.5 TAB PO QPM SLEEP (Reported) Potassium Chloride [address] 1 TAB PO DAILY SUPPLEMENT (Reported) Pregabalin (Lyrica) 25 MG CAP 25 MG PO TID LEG PAIN Sitagliptin Phosphate (Januvia) 25 MG TABLET 1 TAB PO DAILY DM (Reported) Review of Systems Review of Systems: Neck discomfort. Epistaxis. Past History Travel History Traveled to [place] past 21 day No Medical History Neurological: Alzheimer's disease EENT: NONE Cardiovascular: hypertension, hyperlipidemia Respiratory: NONE Gastrointestinal: NONE, constipation Hepatic: NONE Renal: CHRONIC RENAL FAILURE edema Musculoskeletal: NONE Psychiatric: NONE Endocrine: diabetes Blood Disorders: NONE Cancer(s): NONE TWISTING DEPARTMENT END FINDER/Reproductive: NONE Other Medical Hx: Urinary retention along with severe hypokalemia for which she was discharged [facility] March of this year. Surgical History Surgical History: non-contributory Family History Relations & Conditions If Any: BROTHER, ; Cause: History of chronic renal failure. Relation not specified for: FH: kidney failure Psychosocial History Where Do You Live? Extended Care Facility Who Do You Live With? self Services at Home: None Primary Language: Upper Sorbian Smoking Status: Unknown If Ever Smoked ETOH Use: denies use Illicit Drug Use: denies illicit drug use Name of POA/HCP: Teo Zamarripa---son Functional Ability ADLs Independent: dressing, eating, toileting, bathing. Ambulation: walker Exam & Diagnostic Data Vital Signs and I&O Vital Signs Date Time Temp Pulse Resp B/P Pulse O2 O2 Flow FiO2 Ox Delivery Rate 07/14 0817 98.0 75 18 134/60 96 Room Air 07/14 0022 98.1 72 18 98/50 98 Room Air 07/13 2243 98.0 68 18 116/58 95 07/13 2006 96.8 73 18 130/53 98 Room Air 07/13 1839 96 Room Air 07/13 1722 96.7 79 18 139/65 97 07/13 1451 98.1 74 18 148/72 99 Room Air 07/13 1355 99 Room Air 07/13 1333 97.0 84 18 139/61 98 Room Air Intake & Output 07/14 1600 07/14 0800 02/ 0000 /04 1600 07/13 0800 02/ 0000 Intake Total 400 0 Output Total 4750 Balance -4350 0 Intake, Oral 400 0 Output, Urine 4750 Patient 140 lb 160 lb Weight Physical Exam: General: WD/ WN female in NAD; alert and oriented x 3 HEENT: NC/AT, PERRL, EOMI, clear oropharynx Neck: no JVD, bilateral carotid bruits Heart: RRR with 2/6 systolic murmur at the LLSB and RUSB Lungs: clear bilaterally Abdomen: soft, NT, +ve bowel sounds Extremities: 1+ leg edema Diagnostic Data EKG Results sinus rhythm with Q waves in leads I and aVL 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 I suspect this patient has mild decompensated congestive heart failure. She demonstrates a cough without fever or increase WBC count and without infiltrate that is likely related to her pulmonary edema. She also had leg swelling and has findings of coronary calcifications and an enlarged heart on her chest CT. This is all in the setting of a patient with risk factors for CAD. I recommend gentle diuresis with careful monitoring of her BUN, creatinine and potassium. * Lyrica is a drug that can cause fluid retention and I would discontinue or cut back on this if it is no longer needed. * The patient appears improved this morning. Change Lasix to 40mg PO daily. * Obtain a repeat echocardiogram. * Check a TSH and free T4 * Replete potassium Consult Acknowledgment - Thank you for your consult request.
[2016-07-14 15:59] VITALS: BP 120/50
[2016-07-14 23:59] VITALS: BP 118/62
--- NOTE | 2016-07-15 07:36 | PN- Housestaff ---
See Addendum Subjective Follow-up For: CHF exacerbation Acute on chronic renal failure Complaints: no complaints Tele-Events Since Last Visit: Normal sinus rhythm, heart rate between 79-87, no any events Subjective: Patient is seen and examined at the bedside. She was not having any active complain. She was requesting to remove the Chamberlain catheter. She told that she walked with a walker without any difficulty or dizziness. He denies any shortness of breath, chest pain. Review of Systems Constitutional: Reports: weakness. Denies: no symptoms, chills, diaphoresis, fever, malaise. EENTM: Denies: no symptoms. Cardiovascular: Denies: chest pain, edema, orthopena, palpitations, peripheral edema. Respiratory: Denies: cough, hemoptysis, orthopnea, short of breath, sputum production. Gastrointestinal: Denies: abdominal pain, bloating, constipation, diarrhea, distention. Genitourinary: Denies: discharge, dysuria, frequency, hematuria, hesitation, nocturia. Musculoskeletal: Denies: back pain, gout, joint pain. Neurological/Psychological: Reports: anxiety, depressed. Objective Last 24 Hrs of Vital Signs/I&O Vital Signs Date Time Temp Pulse Resp B/P Pulse O2 O2 Flow FiO2 Ox Delivery Rate / 0834 98.1 78 18 114/60 94 Room Air 02/ 0000 Room Air / 2359 98.1 74 18 118/62 96 Room Air Intake & Output / 1600 02/ 0800 02/ 0000 Intake Total 0 540 Output Total 350 1550 Balance -350 -1010 Intake, IV 0 0 Intake, Oral 0 540 Number 0 0 Bowel Movements Output, Urine 350 1550 Patient 70.08 kg Weight Physical Exam General Appearance: Alert, Oriented X3, Cooperative, No Acute Distress Skin: No Rashes, No Breakdown HEENT: Atraumatic, PERRLA, EOMI Neck: Supple, No JVD Cardiovascular: Regular Rate, Normal S1, Normal S2 Lungs: Clear to Auscultation, Normal Air Movement Abdomen: Soft, No Tenderness Neurological: Normal Gait, Normal Speech Extremities: No Clubbing, No Cyanosis, bilateral nonpitting edema Vascular: Normal Pulses, Pulses Symmetrical Assessment/Plan Assessment: 75 year-old woman resident of [facility] with a PMHx of long standing DM, HTN, Diabetic Nephropathy and CKD Stage 4, and CHF with preserved EF who was admitted with complaints of generalized weakness and poor appetite and PO intake of 4 months duration and cough productive of blood streaked sputum for 5 days. Vital signs-temperature 98.1, pulse 78, respiratory rate 18, blood pressure 118/ 62, SPO2 96%. Intake/output-1360/2950, -1590 Problem list 1. CHF with preserved EF 2. Rule out NSTEMI 3. HTN 4. CKG stage 4 5. Type 2 Diabetes mellitus 6. Hyperlipidemia 7. Alzheimers dementia Plans - * We will DC the Chamberlain catheter. * Plan for discharge tomorrow * Oxygen by nasal canula to keep SPO2 >92% * We will continue tablet Lasix 40 milligrams OD PO, as advised by general education instructor * Strict input output monitoring, * Follow-up echocardiogram * We will continue Levemir 60 units twice a day * Accuchek TIDAC/HS for diabetes and gave NovoLog according to the sliding scale * DVT prophylaxis SC heparin 5000 Units Q 8 hrsy * We'll continue all home medication * Code status is DNR/DNI * Diet -heart healthy /diabetic /fluid restriction to 1500 mL/day * Daily weights Problem List: 1. CHF exacerbation 2. Anemia 3. Diabetes 4. Chronic renal failure Pain Ratin Pain Location: none Pain Goal: Remain pain free Pain Plan: mild Tomorrow's Labs & Rationales: bep DVT/Prophylaxis: mechanical, pharmacological
[2016-07-15 08:10] LABS: ABSOLUTE BASOPHIL COUNT 0 /CUMM (0.0-0.2); ABSOLUTE EOSINOPHIL COUNT 0.4 /CUMM (0.0-0.7); ABSOLUTE GRANULOCYTE CT 6.3 /CUMM (1.4-6.5); ABSOLUTE LYMPH COUNT 1.8 /CUMM (1.2-3.4); ABSOLUTE MONOCYTE COUNT 0.7 /CUMM (0.10-0.60); BASOPHIL % 0.5 % (0.0-2.0); EOSINOPHIL % 4.8 % (0-5); GRANULOCYTE % 67.8 % (42.2-75.2); HEMATOCRIT 33.5 % (37-47); MEAN CORPUSCULAR HGB 29.4 PG (27.0-31.0); MEAN CORPUSCULAR HGB CONC 33.4 G/DL (33.0-37.0); MEAN CORPUSCULAR VOLUME 88.2 FL (81.0-99.0); MEAN PLATELET VOLUME 7.5 FL (7.4-10.4); PLATELET COUNT 136 /CUMM (130-400); RBC DISTRIBUTION WIDTH 15.7 % (11.5-14.5); RED BLOOD CELL CT 3.79 /CUMM (4.20-5.40); WHITE BLOOD CELL COUNT 9.3 /CUMM (4.8-10.8)
[2016-07-15 08:34] VITALS: BP 114/60
[2016-07-15 16:10] VITALS: BP 115/60
--- NOTE | 2016-07-15 16:18 | PN- Cardiology ---
Subjective Subjective: The patient is comfortable and in no acute distress. No chest pain. No shortness of breath. No palpitations Objective Vital Signs and I&Os Vital Signs Date Time Temp Pulse Resp B/P Pulse O2 O2 Flow FiO2 Ox Delivery Rate 07/15 0834 98.1 78 18 114/60 94 Room Air 07/15 0000 Room Air 07/14 2359 98.1 74 18 118/62 96 Room Air 07/14 1559 97.0 74 18 120/50 95 Room Air Intake & Output 07/15 1600 07/15 0807/15 0000 07/14 1600 07/14 0807/14 0000 Intake Total 0 540 820 400 Output Total 350 1550 1400 4750 Balance -350 -1010 -580 -4350 Intake, IV 0 0 Intake, Oral 0 540 820 400 Number 0 0 1 Bowel Movements Output, Urine 350 1550 1400 4750 Patient 155 lb 140 lb Weight Physical Exam: Gen: The patient is in no acute distress HEENT: Normal nose, ears, and oropharynx. Pupils equal bilaterally. Conjunctiva normal. Neck: Supple with no JVD, no masses, and no thyromegaly Lungs: Clear to auscultation with normal respiratory effort Heart: RRR, S1, S2, no murmurs. 1 peripheral edema, 2+ pulses in the lower extremities bilaterally Abdomen: Soft, nontender, no masses. No hepatomegaly. No splenomegaly Extremities: No clubbing or cyanosis. Normal muscle strength in the upper and lower extremities Skin: Normal skin turgor with no skin ulcers or lesions noted. Current Medications: Current Medications Sig/Leo Start time Last Medication Dose Route Stop Time Status Admin Acetaminophen 650 MG Q6 PRN 07/14 2345 AC 07/14 PO 1159 Aspirin 81 MG DAILY 07/14 1000 AC 07/15 PO 1027 Cholecalciferol 1,000 IU DAILY 07/14 1000 AC 07/15 PO 1027 Citalopram 10 MG DAILY 07/14 1000 AC 07/15 Hydrobromide PO 1027 Ezetimibe 10 MG DAILY 07/14 1000 AC 07/15 PO 1027 Furosemide 40 MG 7:30 AM, & 4:30 PM 07/14 1630 AC 07/15 PO 1027 Guaifenesin/Codeine 10 ML Q6P PRN 07/14 1845 AC Phosphate PO Heparin Sodium 5,000 UNIT Q8 07/13 2200 AC 07/15 (Porcine) SC 1407 Insulin Aspart 0 TIDAC 07/14 1700 AC 07/15 SC 1407 Insulin Detemir 60 UNITS BID 07/13 2200 AC 07/15 SC 1028 Levothyroxine Sodium 0.05 MG DAILY AC 07/14 0700 AC 07/15 PO 1027 Lidocaine 1 PAT DAILY 07/14 1000 AC 07/15 EXT 1028 Mirtazapine 7.5 MG QPM 07/13 2200 AC 07/14 PO 2148 Omeprazole 40 MG DAILY AC 07/14 0700 AC 07/15 PO 1027 Patient Medication 1 UNIT ONE NR 07/14 1600 DC Teaching ED 07/14 1630 Polyethylene Glycol 17 GM DAILY 07/15 1000 AC PO Potassium Chloride 10 MEQ DAILY 07/14 1000 AC 07/15 PO 1027 Pregabalin 25 MG TID 07/13 2200 DC 07/14 PO 2148 Senna/Docusate Sodium 1 TAB DAILY 07/14 1448 AC 07/14 PO 1700 Sodium Chloride 2 SPRAY Q4P PRN 07/14 1730 AC IGNACIO Results Last 48 Hrs of Labs/Mics: Laboratory Tests 07/15/16 0600: Anion Gap 12, Estimated GFR 13 L, BUN/Creatinine Ratio 12.6, CBC w Diff NO MAN DIFF REQ, RBC 3.79 L, MCV 88.2, MCH 29.4, RDW 15.7 H, MPV 7.5, Gran % 67.8, Lymphocytes % 19.1 L, Monocytes % 7.8, Eosinophils % 4.8, Basophils % 0.5, Absolute Granulocytes 6.3, Absolute Lymphocytes 1.8, Absolute Monocytes 0.7 H, Absolute Eosinophils 0.4, Absolute Basophils 0, PUBS MCHC 33.4 07/14/16 0935: Troponin I < 0.01, TSH 4.300 H, Free T4 0.81 07/13/16 1956: Troponin I 0.03 Recent Imaging Studies: CT chest: 1. Mild cardiomegaly, prominence of the central pulmonary venous system and increased interstitial markings bilaterally, with lower and dependent lung predominance. Findings are similar to December 2015 CT scan and could represent some degree of interstitial pulmonary edema. However possibility of interstitial lung disease is not excluded. Clinical correlation is advised. 2. Atherosclerosis. 3. Hiatal hernia. Assessment/Plan Assessment/Plan Assessment: 1. Hypertension 2. Diabetes mellitus 3. Chronic kidney disease 4. Acute on chronic HFpEF plan: * Continue p.o. Lasix * Echocardiogram pending * Continue other medications Continue telemetry? Yes
[2016-07-16 00:32] VITALS: BP 110/60
[2016-07-16 07:35] VITALS: BP 112/56
--- NOTE | 2016-07-16 08:00 | Discharge Summary ---
Visit Information Visit Dates Admission Date: 07/13/16 Discharge Date: 07/16/16 Hospital Course Course Attending Physician: DR. OCONNELL Primary Care Physician: LINDA WHEELER,MARCUS Gil Hospital Course: This is a 75-year-old woman resident of [facility] with a past medical history of long-standing, uncontrolled diabetes mellitus complicated with diabetic nephropathy and CK D stage IV diabetic neuropathy on Lyrica, congestive heart failure with preserved ejection fraction, hernia, Alzheimer's dementia, hypertension, hyperlipidemia and on 07/13/2016 with chief complaint of nasal bleeding since 5 days, cough since 3 days, associated with blood streaked sputum, 3-5 days prior to admission. On admission she was afebrile, MAXIMUM TEMPERATURE of 98.1, heart rate of 84 bpm , aspiration of 18, blood pressure 139/61, 98% saturation on room air. On physical exam she was alert and oriented 3, cooperative, in mild distress, skin was red flushed face with multiple potential spots on the face and upper chest. Neck was supple, no jugular venous distention, cardiovascular regular rate, normal S1-S2, lungs had by lateral basilar crepitations. Abdomen was soft, nontender, and distended. Neuro exam was nonfocal, extremities there was no clubbing no cyanosis, there was nonpitting bilateral edema. Vascular pulses were normal and symmetrical on both sides. Relevant lab on admission she had a white count of 9.5, H/H of 10.9/32.9, platelet of 132, chemistry creatinine was 3.3 and BUN was 43, baseline creatinine runs around 2.7-3. ProBNP was 362. There was positive for small leukocyte esterase, negative for nitrates, 3-5 white blood cells. EKG showed sinus rhythm, no acute ST-T wave abnormalities. Chest x-ray revealed findings favoring relatively pronounced CHF. CT chest was consistent with a similar picture. #1 Decompensated CHF with preserved ejection fraction She was admitted to telemetry floor or treatment of decompensated congestive heart failure with preserved ejection fraction and ruling out non-STEMI. She was started on oxygen by nasal cannula to keep the oxygen saturation greater than 92%. She was started on IV Lasix 40 twice a day. Daily weights were monitored, she was put on a CHF diet. Serial EKG and troponin were done and acute coronary syndrome was ruled out. Cardiology was consulted. Lyrica was discontinued during the hospital course at these october cause fluid retention and worsening CHF. This was resumed on discharge. Echocardiogram was obtained which is pending. TSH and free T4 within normal limits. Electrolytes were monitored closely and repleted as necessary. Was switched to by mouth Lasix and discharged on home dosage of Lasix 80 mg daily. #2 History of uncontrolled diabetes mellitus Her Januvia was stopped and she was started on NovoLog sliding scale along with Levemir 60 units twice a day which is her home dose of diabetes medication. Sugar did continue to stay high, and had one episode of hypoglycemia, as she did not eat her breakfast. Otherwise her sugars were reasonably controlled. At baseline they have been usually difficult to control. They stayed between 150- 300. #3 Acute on chronic CKD stage IV. Patient reaction and BUN was monitored closely. Her baseline creatinine is between 2.73. Patient came in with CHF therefore required IV Lasix. Probably the elevated creatinine and was thought to be secondary to Lasix. Once the lasix islowered and she is back on her home dosage the creatinine is expected to improve. On discharge her creatinine was 3.5. The patient will follow up with primary care practitioner and a repeat BP checked as outpatient. #4 history of hyperlipidemia. She was continued on ezetimibe at 10 mg once daily. #5 history of hypothyroidism Free t4 : 0.81 TSh : 4.[address] this admission[address] home dosage of levothyroxine 0.05mcg OD. Ct home medication of asprin, celexa, mirtazapine, prilosec at home dosage upon discharge, no changes. DVT prophylaxis SC heparin Code status is DNR Diet was CHF diet. Allergies: Coded Allergies: NO KNOWN ALLERGIES (08/01/14) Significant Procedures: SERVICE DATE: 07/13/167614 EXAM TYPE: RAD - XRY-PORTABLE CHEST XRAY EXAMINATION: XR PORTABLE CHEST CLINICAL INFORMATION: Cough. Assess for pneumonia. COMPARISON: 05/21/2015 TECHNIQUE: Portable AP view of the chest was obtained. FINDINGS: Heart size remains mildly prominent. Low lung volumes with diffuse increased prominence and indistinctness to the lung markings are trace pleural effusions at both bases. More focal left lower lobe airspace disease. No ectopic air. IMPRESSION: Findings favor relatively pronounced CHF. Correlate clinically. Question of superimposed left lower lobe pneumonia. Once again an element of chronic underlying lung disease question. SERVICE DATE: 07/13/162 EXAM TYPE: CAT - CT CHEST WO IV CONTRAST IMPRESSION: 1. Mild cardiomegaly, prominence of the central pulmonary venous system and increased interstitial markings bilaterally, with lower and dependent lung predominance. Findings are similar to December 2015 CT scan and could represent some degree of interstitial pulmonary edema. However possibility of interstitial lung disease is not excluded. Clinical correlation is advised. 2. Atherosclerosis. 3. Hiatal hernia. Disposition Summary Disposition Principal Diagnosis: 1.Decompensated CHF with preserved EF 2.Bladimir on CKD stage 4 3.Uncontrolled diabeted mellitus complicated with nephropathy and nueropathy Additional Diagnosis: 4. HL 5. HTN 6. Hypothyoridisn 7.Peripheral nueropathy Discharge Disposition: SNF Discharge Instructions General Discharge Information Code Status: Do Not Resucitate Patient's Diet: CHF diet Patient's Activity: tolerated Follow-Up Instructions/Appts: please follow up with your PCP and your honing machine operator upon discharge. please continue to monitor your sugars closely. please continue to take your medicatinos as prescribed. Medications at Discharge Discharge Medications: Continue taking these medications: Lidocaine (Lidoderm) 5 % ADH..PATCH 1 Patch On the skin DAILY Instructions: may wear up to 12 hours Comments: Last Taken: 07/16/16 Time: 1100 AM Cholecalciferol (Vitamin D3) 1,000 IU TAB 1 Tablet ORAL DAILY Comments: NOT GIVEN IN HOSPITAL Levothyroxine Sodium (Synthroid) 50 MCG TABLET 1 Tablet ORAL DAILY BEFORE BREAKFAST Comments: Last Taken: 07/16/16 Time: 0700 AM Ezetimibe (Zetia) 10 MG TAB 1 Tablet ORAL DAILY Comments: GIVEN 05/24/15 @ 1040 Aspirin (Children's Aspirin) 81 MG TAB 81 Milligram ORAL DAILY Days = 30 Comments: GIVEN 05/24/15 @ 1040 Potassium Chloride (Potassium Chloride) [address] Tablet ORAL DAILY Comments: GIVEN 05/24/15 @ 1040 Pregabalin (Lyrica) 25 MG CAP 25 Milligram ORAL THREE TIMES DAILY Days = 30 Comments: GIVEN 05/24/15 @ 1600 Insulin Aspart, Recombinant (Novolog) 100 U/ML FELTON 0 Units Inject into fatty tissue BEFORE MEALS AND AT BEDTIME Days = 30 Instructions: Mealtime sliding scale: Fingerstick less than 80: initiate hypoglycemia protocol 80-150: 6 UNITS 151-200: 7 units 201-250: 8 units 251-300: 10 units 301-350: 12 units 351-400: 14 units more than 400: plus 16 units Bedtime sliding scale: Fingerstick Less than 80: initiate hypoglycemia protocol 80-250: no change 251-300: 2 units 301-350: 3 units 351-400: 4 units Comments: CONFIRMED BY PT FAMILY Sitagliptin Phosphate (Januvia) 25 MG TABLET 1 Tablet ORAL DAILY Qty = 30 Comments: NOT GIVEN AT HOSPITAL Citalopram Hydrobromide (Citalopram HBr) 10 MG TABLET 1 Tablet ORAL DAILY Qty = 15 Comments: Last Taken: 06/15/16 Time: 1103 Insulin Detemir (Levemir) 100 UNIT/ML VIAL 60 Units Inject into fatty tissue TWICE DAILY Qty = 40 Comments: Last Taken: 07/16/16 Time: 1100 AM Mirtazapine (Mirtazapine) 15 MG TABLET 0.5 Tablet ORAL Every night Qty = 15 Comments: Last Taken: 07/15/16 Time: 9:16 PM Furosemide (Furosemide) 80 MG TABLET 1 Tablet ORAL TWICE DAILY Qty = 28 Comments: LASIX 40 MG Last Taken: 07/16/16 Time: 1103 AM Esomeprazole (Nexium) 40 MG CAPSULE.DR 1 Capsule ORAL DAILY Qty = 30 Comments: NOT GIVEN AT HOSPITAL Copies To: LINDA WHEELER,MARCUS MACKEY MD,TISH Ramirez MD Review Statement Documenting Attending: GAURAV OCONNELL MD
--- NOTE | 2016-07-16 08:05 | NUR ---
BLOOD GLUCOSE FINGERSTICK = <50. NOTIFIED AUTOMATIC PATTERN EDGER DR FORRESTER. / AMP D50 GIVEN. BREAKFAST ON ITS WAY FROM DIETARY. PATIENT AWAKE ALERT. AUTOMATIC PATTERN EDGER IN TO SEE PATIENT WHO SPEAKS PEDRO. WILL RECHECK BLOOD SUGAR FINGERSTICK.
--- NOTE | 2016-07-16 08:13 | PN- Housestaff ---
USAMA WHEELER,MAKAYLA 07/16/16 0813: Subjective Follow-up For: CHF exacerbation Acute on chronic renal failure Complaints: she is very depressed about her situation, she does not like the food,as it is very different from her culture Tele-Events Since Last Visit: Normal sinus rhythm with heart rate of 76-91, not events Subjective: She was seen and examined at the bedside. She was feeling very depressed as she was not able to talk to anyone due to difference in the language. She was also not able to eat properly because the food is different from her staple diet. Denies of any nausea, vomiting, cough, shortness of breath. She is complaining of still having bloody nasal secretions after sneezing. Review of Systems Constitutional: Reports: weakness. EENTM: Reports: epistaxis, nasal pain. Cardiovascular: Denies: chest pain, edema, orthopena, palpitations, peripheral edema. Respiratory: Denies: cough, hemoptysis, orthopnea, short of breath, sputum production. Gastrointestinal: Denies: abdominal pain, bloating, constipation, diarrhea, distention. Genitourinary: Denies: discharge, dysuria, hematuria, hesitation, nocturia. Musculoskeletal: Reports: joint pain, joint swelling, muscle pain, muscle stiffness. Denies: back pain, gout. Skin: Reports: erythema. Neurological/Psychological: Reports: anxiety, depressed. Objective Last 24 Hrs of Vital Signs/I&O Vital Signs Date Time Temp Pulse Resp B/P Pulse O2 O2 Flow FiO2 Ox Delivery Rate 07/16 1235 98.2 77 18 112/56 / 0800 Room Air 07/16 0735 98.2 77 18 112/56 92 Room Air 07/16 0032 98.7 76 20 110/60 91 Room Air 07/15 1610 98.2 69 20 115/60 93 Intake & Output 07/16 1600 07/16 0800 / 0000 Intake Total 360 120 310 Output Total 250 180 Balance 360 -130 130 Intake, IV 20 Intake, Oral 360 120 290 Output, Urine 250 180 Patient 69.853 kg Weight Physical Exam General Appearance: Alert, Oriented X3, Cooperative, No Acute Distress Skin: No Rashes, No Breakdown HEENT: Atraumatic, PERRLA, EOMI, Mucous Membr. moist/pink Neck: Supple, No JVD Cardiovascular: Regular Rate, Normal S1, Normal S2 Lungs: mild basilar Crackles, left middle lobe crackles Abdomen: Soft, No Tenderness Neurological: Normal Speech Extremities: No Clubbing, No Cyanosis, No Edema Vascular: Normal Pulses, Pulses Symmetrical Assessment/Plan Assessment: 75 year-old woman resident of [facility] with a PMHx of long standing DM, HTN, Diabetic Nephropathy and CKD Stage 4, and CHF with preserved EF who was admitted with complaints of generalized weakness and poor appetite and PO intake of 4 months duration and cough productive of blood streaked sputum for 5 days. Vital signs-temperature 98.2, pulse 77, respiratory rate 18, blood pressure 112/ 56, SPO2 92%. Intake/output-1360/2950, -1590 Problem list Acute on chronic kidney disease CHF with preserved EF HTN CKG stage 4 Type 2 Diabetes mellitus Hyperlipidemia Alzheimers dementia Plans - * Discharge today * We will continue tablet Lasix 40 mgs OD PO, as advised by esl instructional assistant * Strict input output monitoring, * Echocardiogram shows-LVEF more than 60%, mild aortic stenosis * She had an episode of hypoglycemia in the morning, blood sugar was 50. We gave 12.5 grams of IV dextrose. Probably just due to she has not had a good dinner and she is very anorexic. Advise for the adequate diet, while she is on insulin. Advised to adjust the dose of insulin, according to the dietary intake * We will continue Levemir 60 units twice a day * Accuchek TIDAC/HS for diabetes and gave NovoLog according to the sliding scale * She is also complaining of epistaxis. Advise to continue saline nasal spray, and avoid dryness. * DVT prophylaxis SC heparin 5000 Units Q 8 hrsy * We'll continue all home medication * Code status is DNR/DNI * Diet -heart healthy /diabetic /fluid restriction to 1500 mL/day * Daily weights Problem List: 1. CHF exacerbation 2. Acute on chronic renal failure 3. Diabetes Pain Ratin Pain Location: bilateral knee Pain Goal: Remain pain free Pain Plan: mild, avoid NSAIDS, use lidocain patch and tramadol Tomorrow's Labs & Rationales: none DVT/Prophylaxis: mechanical, pharmacological APERGIS GAURAV WHEELER 07/16/16 1153: Attending Review Statement Attending Statement Attending MD Statement: examined this patient, discuss w/resident/PA/LOFTER, agreed w/resident/PA/LOFTER, reviewed EMR data (avail) Attending Assessment/Plan: Patient comfortable on PO Lasix, breathing well, vitals stable. Echocardiogram reviewed by cardiology. Patient is stable for discharge home on current medications with cardiology follow up. See CMR for details.
--- NOTE | 2016-07-16 09:04 | Patient Discharge Instructions ---
Discharge Instructions General Discharge Information You were seen/treated for: chf with preserved ejection fraction Special Instructions: please follow up with your PCP and your neck band setter upon discharge. please continue to monitor your sugars closely. please continue to take your medicatinos as prescribed. Diet Continue normal diet: No Recommended Diet: Diabetic Activity Full Activity/No Limits: No Activity Self Limited: Yes Acute Coronary Syndrome Inclusion Criteria At DC or during hospital stay patient has or had the following: ACS DIAGNOSIS No Discharge Core Measures Meds if any: Prescribed or Continued at Discharge Meds if any: NOT Prescribed or Continued at Discharge Congestive Heart Failure Inclusion Criteria At DC or during hospital stay patient has or had the following: CHF DIAGNOSIS Yes Discharge Core Measures Meds if any: Prescribed or Continued at Discharge CATRACHITO/ARB for EF <40% No Meds if any: NOT Prescribed or Continued at Discharge Cerebrovascular accident Inclusion Criteria At DC or during hospital stay patient has or had the following: CVA/TIA Diagnosis No Discharge Core Measures Meds if any: Prescribed or Continued at Discharge Meds if any: NOT Prescribed or Continued at Discharge Venous thromboembolism Inclusion Criteria VTE Diagnosis No VTE Type NONE VTE Confirmed by (Test) NONE Discharge Core Measures - Per Current guidelines, there needs to be overlap - treatment for the first 5 days of Warfarin therapy. - If discharged on Warfarin prior to 5 days of - overlap therapy, the patient will need to be - assessed for post discharge needs including - *Post discharge parental anticoagulation - *Warfarin and/or parental anticoagulation education - *Follow up date to check INR post discharge At least 5 days overlap therapy as Inpatient No Meds if any: Prescribed or Continued at Discharge Note: Overlap Therapy is Warfarin and Anticoagulant Meds if any: NOT Prescribed or Continued at Discharge
[2016-07-16] MEDS ORDERED: NEXIUM40 M1 PO (09:11)
--- NOTE | 2016-07-16 10:43 | ECHOCARDIOGRAM REPORT ---
MACK BARBER Age: 75 : 1940 Gender: F Exam Date: 07/15/2016 19:25 Exam Location: [address] Ht (in): 56 Wt (lb): 160 BSA: 1.73 BP: 114 / 60 Ordering Physician: AARON KINNEY MD Referring Physician: Magno Friedman MD Technologist: Chapis Bautista [facility] Room Number: [id number] Indications: HEART FAILURE Rhythm: Sinus Technical Quality: Good FINDINGS Left Ventricle Normal size left ventricle. Left ventricular ejection fraction is estimated at >60%. No obvious regional wall motion abnormalities. Right Ventricle Normal right ventricular size and function. Right Atrium Normal right atrial size. Left Atrium Normal left atrial size. Mitral Valve Mitral valve thickened. Mild mitral regurgitation. Aortic Valve Diffuse thickening of the aortic valve cusps with reduced excursion. Mild to moderate aortic regurgitation. Mild aortic stenosis. Tricuspid Valve Tricuspid valve not well visualized, grossly normal. Mild tricuspid regurgitation. No evidence of pulmonary hypertension. No evidence of pulmonary hypertension. Pulmonic Valve Pulmonic valve not well visualized, grossly normal. Pericardium No pericardial effusion. Great Vessels Normal size aortic root. CONCLUSIONS Normal size left ventricle. Left ventricular ejection fraction is estimated at >60%. Mild mitral regurgitation. Mild to moderate aortic regurgitation. Mild aortic stenosis. Mild tricuspid regurgitation. No evidence of pulmonary hypertension. Magno Friedman M.D. (Electronically Signed) Final Date: 16 July 2016 10:42 MEASUREMENTS (Male / Female) Normal Values 2D ECHO LV Diastolic Diameter PLAX 4.0 cm 4.2 - 5.9 / 3.9 - 5.3 cm LV Systolic Diameter PLAX 2.6 cm 2.1 - 4.0 cm LV Fractional Shortening PLAX 35.0 % 25 - 46 % LV Ejection Fraction 2D Teich 64.8 % IVS Diastolic Thickness 1.2 cm LVPW Diastolic Thickness 0.9 cm LV Relative Wall Thickness 0.5 RV Internal Dim ED PLAX 2.9 cm 1.9 - 3.8 cm LVOT Diameter 1.8 cm Aortic Root Diameter 2.4 cm LA Systolic Diameter LX 3.1 cm 3.0 - 4.0 / 2.7 - 3.8 cm LA Volume 28.0 cm 18 - 58 / 22 - 52 cm Ascending Aorta Diameter 2.7 cm DOPPLER AV Peak Velocity 261.0 cm/s AV Peak Gradient 27.2 mmHg AV Mean Velocity 179.0 cm/s AV Mean Gradient 15.0 mmHg AV Velocity Time Integral 57.6 cm AI Deceleration [place] 179.0 cm/s AI Peak Velocity 345.0 cm/s AI Pressure Half Time 563.0 ms AI Peak Gradient 47.6 mmHg LVOT Peak Velocity 141.0 cm/s LVOT Peak Gradient 8.0 mmHg LVOT Mean Velocity 98.6 cm/s LVOT Mean Gradient 4.0 mmHg LVOT Velocity Time Integral 31.8 cm LVOT Stroke Volume 80.9 cm AV Area Cont Eq vti 1.4 cm AV Area Cont Eq pk 1.4 cm MV Peak Velocity 116.0 cm/s MV Peak Gradient 5.4 mmHg MV Mean Velocity 74.1 cm/s MV Mean Gradient 2.0 mmHg Mitral E Point Velocity 96.7 cm/s Mitral A Point Velocity 112.0 cm/s Mitral E to A Ratio 0.9 MV PHT Velocity 118.0 cm/s MV Deceleration [place] 265.0 cm/s MV Pressure Half Time 133.6 ms MV Area PHT 1.6 cm MV Deceleration Time 254.0 ms TR Peak Velocity 238.0 cm/s TR Peak Gradient 22.7 mmHg Right Atrial Pressure 5.0 mmHg Pulmonary Artery Systolic Pressu 27.7 mmHg Right Ventricular Systolic Press 27.7 mmHg PV Peak Velocity 121.0 cm/s PV Peak Gradient 5.9 mmHg PV Mean Velocity 76.4 cm/s PV Mean Gradient 3.0 mmHg PV Velocity Time Integral 27.0 cm LV E' Lateral Velocity 7.3 cm/s Mitral E to LV E' Lateral Ratio 13.2 LV E' Septal Velocity 5.6 cm/s Mitral E to LV E' Septal Ratio 17.4
--- NOTE | 2016-07-16 11:12 | PN- Cardiology ---
Subjective Subjective: The patient is comfortable and in no acute distress. No chest pain. No shortness of breath. No palpitations. No diaphoresis. Objective Vital Signs and I&Os Vital Signs Date Time Temp Pulse Resp B/P Pulse O2 O2 Flow FiO2 Ox Delivery Rate 07/16 08 Room Air 07/16 0735 98.2 77 18 112/56 92 Room Air 07/16 0032 98.7 76 20 110/60 91 Room Air 07/15 1610 98.2 69 20 115/60 93 Intake & Output 07/16 1600 07/16 0807/16 0000 07/15 1600 07/15 0807/15 0000 Intake Total 120 310 525 0 540 Output Total 250 180 922 330 1681 Balance -130 130 -175 -350 -1010 Intake, IV 20 0 0 Intake, Oral 120 290 525 0 540 Number 1 0 0 Bowel Movements Output, Urine 250 180 167 271 6944 Patient 154 lb 155 lb Weight Physical Exam: Gen: The patient is in no acute distress HEENT: Normal nose, ears, and oropharynx. Pupils equal bilaterally. Conjunctiva normal. Neck: Supple with no JVD, no masses, and no thyromegaly Lungs: Clear to auscultation with normal respiratory effort Heart: RRR, S1, S2, no murmurs. 1 peripheral edema, 2+ pulses in the lower extremities bilaterally Abdomen: Soft, nontender, no masses. No hepatomegaly. No splenomegaly Extremities: No clubbing or cyanosis. Normal muscle strength in the upper and lower extremities Skin: Normal skin turgor with no skin ulcers or lesions noted. Current Medications: Current Medications Sig/Leo Start time Last Medication Dose Route Stop Time Status Admin Acetaminophen 650 MG Q6 PRN 07/14 2345 AC 07/16 PO 1104 Aspirin 81 MG DAILY 07/14 1000 AC 07/16 PO 1103 Cholecalciferol 1,000 IU DAILY 07/14 1000 AC 07/16 PO 1104 Citalopram 10 MG DAILY 07/14 999 AC 07/16 Hydrobromide PO 1103 Dextrose 12.5 GM ONCE ONE 07/16 814 DC 07/16 IV 07/16 815 0808 Ezetimibe 10 MG DAILY 07/14 999 AC 07/16 PO 1104 Furosemide 40 MG DAILY 07/16 999 AC 07/16 PO 1103 Furosemide 40 MG 7:30 AM, & 4:30 PM 07/14 1630 DC 07/15 PO 1027 Guaifenesin/Codeine 10 ML Q6P PRN 07/14 1845 AC Phosphate PO Heparin Sodium 5,000 UNIT Q8 07/13 2200 AC 07/16 (Porcine) SC 0700 Insulin Aspart 0 TIDAC 07/14 1700 AC 07/15 SC 1752 Insulin Detemir 60 UNITS BID 07/13 2200 AC 07/16 SC 1103 Levothyroxine Sodium 0.05 MG DAILY AC 07/14 0700 AC 07/16 PO 0700 Lidocaine 1 PAT DAILY 07/16 1100 AC EXT Lidocaine 1 PAT DAILY 07/14 1000 AC 07/15 EXT 1028 Mirtazapine 7.5 MG QPM 07/13 2200 AC 07/15 PO 2116 Omeprazole 40 MG DAILY AC 07/14 0700 AC 07/16 PO 0700 Polyethylene Glycol 17 GM DAILY 07/15 1000 AC 07/16 PO 1103 Potassium Chloride 10 MEQ DAILY 07/14 1000 AC 07/16 PO 1103 Senna/Docusate Sodium 1 TAB DAILY 07/14 1448 AC 07/16 PO 1104 Sodium Chloride 2 SPRAY Q4P PRN 07/14 1730 AC IGNACIO Results Last 48 Hrs of Labs/Mics: Laboratory Tests 07/16/16 0619: Anion Gap 9, Estimated GFR 13 L, BUN/Creatinine Ratio 12.9, Glucose 57 L 07/15/16 0600: Anion Gap 12, Estimated GFR 13 L, BUN/Creatinine Ratio 12.6, CBC w Diff NO MAN DIFF REQ, RBC 3.79 L, MCV 88.2, MCH 29.4, RDW 15.7 H, MPV 7.5, Gran % 67.8, Lymphocytes % 19.1 L, Monocytes % 7.8, Eosinophils % 4.8, Basophils % 0.5, Absolute Granulocytes 6.3, Absolute Lymphocytes 1.8, Absolute Monocytes 0.7 H, Absolute Eosinophils 0.4, Absolute Basophils 0, PUBS MCHC 33.4 Recent Imaging Studies: Echocardiogram 07/16/16: Normal size left ventricle. Left ventricular ejection fraction is estimated at >60%. Mild mitral regurgitation. Mild to moderate aortic regurgitation. Mild aortic stenosis. Mild tricuspid regurgitation. No evidence of pulmonary hypertension. Assessment/Plan Assessment/Plan Assessment: 1. Hypertension 2. Diabetes mellitus 3. Chronic kidney disease 4. Acute on chronic HFpEF Plan: * Continue p.o. Lasix * Continue other medications * Agree with plan for discharge. * Follow up in the office in one week. Continue telemetry? Yes
[2016-07-16 12:35] VITALS: BP 112/56
== END 2016-07-16 14:50 | DRG 194 ==
LOC: ENRESERVTM → ENRESERVDT → ERH 13:29 → 1NO 15:20 → ERHI 15:20 → ENPENDDIS 15:20 → 1NO 20:42
PROVIDERS: Physician Assistant Medical; Student in an Organized Health Care Education/Training Program; ADMIT Hospitalist
DX: I13.0 Hypertensive heart and chronic kidney disease with heart failure and stage 1 through stage 4 chronic kidney disease, or unspecified chronic kidney disease (principal); I50.33 Acute on chronic diastolic (congestive) heart failure; E11.22 Type 2 diabetes mellitus with diabetic chronic kidney disease; N18.4 Chronic kidney disease, stage 4 (severe); G30.9 Alzheimer's disease, unspecified; F02.80 Dementia in other diseases classified elsewhere, unspecified severity, without behavioral disturbance, psychotic disturbance, mood disturbance, and anxiety; E78.5 Hyperlipidemia, unspecified; D64.9 Anemia, unspecified; E11.65 Type 2 diabetes mellitus with hyperglycemia; E11.40 Type 2 diabetes mellitus with diabetic neuropathy, unspecified; Z79.4 Long term (current) use of insulin
CPT/HCPCS: 1NSP; 36415; 81001; 82436; 87086; 93005; 93010; 93306; 96374; 97110-GO; 97116-GO; 97161-GP; 97530-GO; 99291; J1644; J1940; J3490

== ENCOUNTER 2017-09-26 15:18 | Emergency (ER) | payer OTHER ==
[~2017-09-26 15:18] MED LIST changes: +ASPIRIN81 M4 PO; +CALCITRIOL0.25 MC1 PO; +CITALOPRAM HBR10 MG PO; +FUROSEMIDE80 M1 PO; +JANUVIA25 M1 PO; +KLOR-CON M1010 ME1 PO; +LEVEMIR100 UNIT/1 SC; +LYRICA25 M1 PO; +METOLAZONE2.5 M1 PO; +MIRALAX17 G1 PO; +MIRTAZAPINE15 M2 PO; +NEXIUM40 M1 PO; +NOVOLOG FL100 UNIT/1 SC; -POTASSIUM CHLO10 ME1 PO; +REFRESH CELLUV1 EACH OU; +SENNA8.6 M3 PO; +VICTOZA 2-0.6 MG/0.1 SC; -VITAMIN D1000 IU PO; +VITAMIN D31000 UNI2 PO; +ZETIA10 M1 PO; -ZETIA10 MG PO
[2017-09-26 16:12] LABS: ABSOLUTE BASOPHIL COUNT 0 /CUMM (0.0-0.2); ABSOLUTE EOSINOPHIL COUNT 0.4 /CUMM (0.0-0.7); ABSOLUTE GRANULOCYTE CT 7.3 /CUMM (1.4-6.5); ABSOLUTE LYMPH COUNT 1.5 /CUMM (1.2-3.4); ABSOLUTE MONOCYTE COUNT 0.5 /CUMM (0.10-0.60); BASOPHIL % 0.2 % (0.0-2.0); GRANULOCYTE % 75.6 % (42.2-75.2); MEAN CORPUSCULAR HGB 26.4 PG (27.0-31.0); MEAN CORPUSCULAR HGB CONC 32.4 G/DL (33.0-37.0); MEAN CORPUSCULAR VOLUME 81.4 FL (81.0-99.0); MEAN PLATELET VOLUME 7.7 FL (7.4-10.4); PLATELET COUNT 176 /CUMM (130-400); RBC DISTRIBUTION WIDTH 16.9 % (11.5-14.5); RED BLOOD CELL CT 4.27 /CUMM (4.20-5.40); WHITE BLOOD CELL COUNT 9.7 /CUMM (4.8-10.8)
[2017-09-26 16:28] LABS: HEMATOCRIT 34.8 % (37-47)
--- NOTE | 2017-09-26 16:50 | CT SCAN REPORT ---
EXAMINATION: CT ABDOMEN AND PELVIS WITHOUT CONTRAST CLINICAL INFORMATION: Pain after fall. Abdominal pain. Distention. COMPARISON: 04/10/2017. TECHNIQUE: Contiguous axial thin section helical images of the abdomen and pelvis were performed without oral or IV contrast. The data set was reformatted in the coronal and sagittal planes and reviewed on an independent workstation. DLP: 280 mGy-cm. FINDINGS: There is interlobular septal thickening noted within both lower lobes, more prominent on an on more remote exams. There is mild air trapping within the posterior basal segment of the right lower lobe. The visualized portions of the heart are unremarkable. There is a small hiatal hernia. The liver is of normal size and attenuation without focal lesions nor intrahepatic biliary ductal dilation. A normal gallbladder is identified. There is no wall thickening or discernible pericholecystic fluid. The spleen, pancreas, adrenal glands are unremarkable. Both kidneys are of normal size and attenuation without hydronephrosis or nephrolithiasis. There is no abdominal free fluid. There is neither mesenteric nor retroperitoneal lymphadenopathy. Normal unopacified loops of small and large bowel are identified. There is no pelvic free fluid. The urinary bladder is distended. Within the right adnexa, there is an approximately 3.8 cm cystic focus, increased in size from prior exam. There is neither pelvic nor inguinal lymphadenopathy. Bone windows: Neither sclerotic nor lytic bone lesions are identified. Again identified is irregularity along the anterior inferior aspect of the L4 vertebral endplate and the superior anterior aspect of the L5 endplate. IMPRESSION: No evidence for acute abdominal or pelvic inflammatory or infectious processes. Distended urinary bladder. 3.8 cm right adnexal cystic focus, increased in size from prior exam. Consider correlation with pelvic ultrasound. Increased interlobular septal thickening within the lower lung bases. This is nonspecific, but could correspond to vascular congestion. Correlate with physical exam. Small hiatal hernia.
[2017-09-26 16:52] LABS: PT 11.7 SEC (9.4-12.5); PTT 29 SEC (25-37)
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
[2017-09-26] MEDS ORDERED: LEVEMIR100 UNIT/1 SC (17:40)
[2017-09-26 17:45] VITALS: BP 138/79
[2017-09-26] MEDS ORDERED: TRAZODONE HCL50 M1 PO (17:45)
--- NOTE | 2017-09-26 18:15 | RADIOLOGY REPORT ---
EXAMINATION: XR KNEE, LEFT CLINICAL INFORMATION: Fall. Knee pain. COMPARISON: None TECHNIQUE: Four views of the left knee. FINDINGS: There is no acute abnormality. There is no fracture. No joint effusion. No dislocation. There is advanced tricompartment degenerative joint disease. The joint spaces are narrowed with subchondral sclerosis of bone and marginal spurring at all 3 compartments. IMPRESSION: 1. No acute abnormality. 2. Advanced tricompartment degenerative joint disease.
--- NOTE | 2017-09-26 18:16 | RADIOLOGY REPORT ---
EXAMINATION: XR KNEE, RIGHT CLINICAL INFORMATION: Right knee pain. Fall. COMPARISON: None TECHNIQUE: Four views of the right knee. FINDINGS: There is no acute abnormality. There is no fracture. No joint effusion. No dislocation. There is advanced tricompartment degenerative joint disease. The joint spaces are narrowed with subchondral sclerosis of bone and marginal spurring at all 3 compartments. IMPRESSION: 1. No acute abnormality. 2. Advanced tricompartment degenerative joint disease
== END 2017-09-26 19:16 ==
LOC: ERH 15:18
PROVIDERS: Physician Assistant Medical
DX: S70.01XA Contusion of right hip, initial encounter (principal); R33.9 Retention of urine, unspecified; M17.0 Bilateral primary osteoarthritis of knee; N39.0 Urinary tract infection, site not specified
CPT/HCPCS: 73562-LT; 73562-RT; 74176; 81001; 87086

== ENCOUNTER 2017-12-08 19:53 | Inpatient (IN) | payer OTHER ==
[~2017-12-08] VITALS: Ht 152.4 cm; Wt 53.5 kg
[~2017-12-08 19:53] MED LIST changes: +TRAZODONE HCL50 M1 PO
--- NOTE | 2017-12-08 20:21 | ED GENERAL ADULT ---
History of Present Illness General Chief Complaint: Dizziness Stated Complaint: PT VOMITING ,DIZZY, NOT RESPONING Source: family, old records Exam Limitations: clinical condition, dementia Vital Signs & Intake/Output Vital Signs & Intake/Output Vital Signs Date Time Temp Pulse Resp B/P B/P Pulse O2 O2 Flow FiO2 Mean Ox Delivery Rate 12/09 2023 98.8 84 18 113/53 97 Room Air Allergies Coded Allergies: NO KNOWN ALLERGIES (08/01/14) Reconcile Medications Aspirin (Aspirin*) 81 MG TAB.CHEW 1 TAB PO DAILY HEART HEALTH (Reported) Calcitriol 0.25 MCG CAPSULE 1 CAP PO DAILY VITAMIN SUPPORT (Reported) Cholecalciferol (Vitamin D3) 1,000 UNIT TABLET 1 TAB PO DAILY VITAMIN SUPPORT (Reported) Citalopram Hydrobromide (Citalopram HBr) 10 MG TABLET 1 TAB PO DAILY MENTAL HEALTH (Reported) Esomeprazole (Nexium) 40 MG CAPSULE.DR 1 CAP PO DAILY HEART BURN (Reported) Ezetimibe (Zetia) 10 MG TABLET 1 TAB PO DAILY CHOLESTEROL (Reported) Furosemide 80 MG TABLET 1 TAB PO BID WATER PILL (Reported) Insulin Aspart, Recombinant (Novolog Flexpen) (Unknown Strength) INSULN.PEN ( Unknown Dose) SC TIDAC DIABETES (Reported) Insulin Detemir (Levemir) (Unknown Strength) VIAL (Unknown Dose) SC BID DM ( Reported) Levothyroxine Sodium (Synthroid) 50 MCG TABLET 1 TAB PO DAILY AC THYROID ( Reported) Liraglutide (Victoza 2-Felipe) 0.6 MG/0.1 ML (18 MG/3 ML) PEN.INJCTR 0.2 ML SC DAILY DIABETES (Reported) Mirtazapine 15 MG TABLET 1 TAB PO QHS SLEEP (Reported) Polyethylene Glycol 3350 (Miralax) 17 GRAM POWD.PACK 1 PAC PO DAILY CONSTIPATION dissolve in water Potassium Chloride (Klor-Con M10) 10 MEQ TAB.ER.PRT 4 TAB PO DAILY SUPPLEMENT (Reported) Pregabalin (Lyrica) 25 MG CAPSULE 1 CAP PO Q8H PAIN (Reported) Sennosides (Senna) 8.6 MG TABLET 1 TAB PO BID CONSTIPATION Sitagliptin Phosphate (Januvia) 25 MG TABLET 1 TAB PO DAILY DM (Reported) Trazodone HCl 50 MG TABLET 0.5 TAB PO QHS UNKNOWN (Reported) Triage Nurses Notes Reviewed? yes HPI: Patient brought in by her son for evaluation. Patient unable to provide any history secondary to dementia, clinical condition, language barrier. Son states that 3 days ago the patient abruptly stopped communicating. He states that she very rarely talked anyway but 3 days ago she stopped speaking entirely. Yesterday he noticed that she was falling to the side, both right and left when she was sitting there so he just figured that she was getting dizzy. Today she has not eaten anything so he brought her in for evaluation. Patient has end- stage renal disease but is not on dialysis because the family does not want her to have it. Past History Travel History Traveled to [place] past 21 day No Medical History Any Pertinent Medical History? 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 Relation not specified for: FH: kidney failure Hx Contributory? No Review of Systems Review of Systems Constitutional: Reports: see HPI. Physical Exam Physical Exam General Appearance: awake, moderate distress, thin Head: atraumatic Eyes: Bilateral: PERRL, EOMI. Ears, Nose, Throat: DRY MUCOSA Neck: supple Respiratory: normal breath sounds, lungs clear Cardiovascular: regular rate/rhythm, normal peripheral pulses Gastrointestinal: normal bowel sounds, soft, non-tender, no organomegaly Back: normal inspection, normal range of motion Extremities: normal inspection, normal range of motion, no edema Neurologic/Psych: NONVERBAL, NOT FOLLOWING ANY COMMANDS Skin: intact, normal color, warm/dry Core Measures ACS in differential dx? No CVA/TIA Diagnosis: No Sepsis Present: No Sepsis Focused Exam Completed? No Progress Differential Diagnoses I considered the following diagnoses in my evaluation of the patient: [CVA, electrolyte abnormality, pneumonia, UTI, sepsis] Plan of Care: Orders Procedure Date/time Status Heart Healthy Diet 12/09 B Active LACTIC ACID 12/08 2317 Active Patient Data 12/[address] in observation 12/08 2228 Active ED Holding Orders 12/08 2228 Active Vital Signs 12/08 2228 Active Code Status 12/08 2228 Active Add-on Test (ER Only) 12/09 2031 Active ACETONE 12/08 2029 Complete Telemetry/Milking Worker 12/08 2017 Active Straight Cath 12/08 2017 Active CULTURE,URINE 12/08 2017 Active BLOOD CULTURE 12/08 2017 Active URINALYSIS 12/08 2017 Complete TROPONIN LEVEL 12/08 2017 Complete LACTIC ACID 12/08 2017 Complete COMPREHENSIVE METABOLIC PANEL 12/08 2017 Complete CBC WITHOUT DIFFERENTIAL 12/08 2017 Complete EKG 12/08 1956 Active Current Medications Sig/Leo Start time Last Medication Dose Stop Time Status Admin Sodium Chloride 1,000 ML Q8H 12/08 2229 AC 12/08 (Normal Saline 0.9%) 2230 Laboratory Tests 12/08/172056: Urinalysis LIGHT H, Urine Color YEL, Urine Clarity TURBD H, Urine pH 5.5, Ur Specific [place] >= 1.030, Urine Protein 30 H, Urine Ketones NEG, Urine Nitrite POS H, Urine Bilirubin NEG, Urine Urobilinogen 0.2, Ur Leukocyte Esterase MOD H, Ur Microscopic SEDIMENT EXAMINED, Urine RBC 10-15 H, Urine WBC PACKD H, Ur Epithelial Cells FEW, Urine Bacteria MANY H, Urine Hemoglobin LARGE H, Urine Glucose NEG 12/08/17 2030: Anion Gap 26 H, Estimated GFR 6 L, BUN/Creatinine Ratio 22.8, Glucose 333 H, Lactic Acid 2.7 H, Calcium 8.9, Total Bilirubin 0.8, AST 24, ALT 48, Alkaline Phosphatase 234 H, Troponin I 0.02, Total Protein 8.3 H, Albumin 3.2 L, Globulin 5.1 H, Albumin/Globulin Ratio 0.6 L, CBC w Diff MAN DIFF ORDERED, RBC 4.51, MCV 81.2, MCH 27.0, MCHC 33.2, RDW 17.5 H, MPV 7.6, Gran % 91.5 H, Lymphocytes % 5.2 L, Monocytes % 3.2, Eosinophils % 0, Basophils % 0.1, Absolute Granulocytes 22.6 H, Segmented Neutrophils 92 H, Band Neutrophils 1, Absolute Lymphocytes 1.3, Lymphocytes 3 L, Monocytes 4, Absolute Monocytes 0.8 H, Absolute Eosinophils 0, Absolute Basophils 0, Platelet Estimate VERIFIED BY SMEAR, Anisocytosis 1+, Fld Total RBCs Counted 100, Acetone Level NEGATIVE Microbiology 12/08 2112 BLOOD: Blood Culture - RECD 12/08 2056 URINE ROUT: Urine Culture - RECD 12/09 2019 BLOOD: Blood Culture - RECD Diagnostic Imaging: Viewed by Me: CT Scan. Discussed w/RAD: CT Scan. Radiology Impression: PATIENT: MACK BARBER PRESENT AGE : 77 PATIENT ACCOUNT NO: [id number] : 41 LOCATION: [facility] ORDERING PHYSICIAN: Estefani Bajwa MD SERVICE DATE: 12/08/17 EXAM TYPE: CAT - CT HEAD WO IV CONTRAST EXAMINATION: CT HEAD WITHOUT CONTRAST CLINICAL INFORMATION: Confusion. COMPARISON: Head CT dated 04/10/2017. TECHNIQUE: Contiguous axial imaging was performed from the skull base to vertex without intravenous administration of contrast. The study is limited due to motion artifacts. DLP: 1369.1 mGy-cm FINDINGS: There is no evidence of acute intracranial hemorrhage or territorial infarction. No abnormal mass effect or midline shift is seen. Amdaor to white matter differentiation is well preserved. No extra-axial fluid collections are identified. Chronic lacunar infarcts are partially visualized in the deep amador matter structures. The ventricles are normal in size. Mild chronic white matter microangiopathic changes are noted. The osseous structures and soft tissues are normal. The mastoid air cells and visualized portions of the paranasal sinuses are well aerated. IMPRESSION: Chronic deep amador matter lacunar infarcts and mild chronic white matter microangiopathy. Limited study with motion artifacts. No definite acute intracranial hemorrhage. DICTATED BY: Estefani Najera MD DATE/TIME DICTATED:07/27 PRACTICE BUSINESS ASST:MAREN DATE/TIME TRANSCRIBED:12/08/172049 CONFIDENTIAL, DO NOT COPY WITHOUT APPROPRIATE AUTHORIZATION. <Electronically signed in Other Vendor System> SIGNED BY: Estefani Najera MD 12/08/172055 Initial ED EKG: NSR, LVH, nonspecific ST T wave chg Prior EKG: unchanged Comments: Had a long discussion with her family. Pros and cons of dialysis first comfort measures have been discussed. Questions up and answered. At this point they do not want any dialysis. They want her to receive gentle hydration. Patient will be kept comfortable. After discussion with the family patient has been made DNR /DNI. Departure Departure Disposition: STILL A PATIENT Condition: Guarded Clinical Impression Primary Impression: Renal failure Referrals: Gloria WHEELER,Constanza Castillo (PCP/Family) Departure Forms: Customer Survey General Discharge Information Observation Note Spoke With: Pamela Mooney MD Physician Advisor Notified: MISTI WHEELER,ESTEFANI Mah[address] Place Patient In: Non-ED OBS Care Area Rationale for Observation: My rational for observation is as follows [IV fluids, DNR/DNI, potential hospice admission]. Critical Care Note Critical Care Note Critical Care Time: mins: (120 MIN)
[2017-12-08 20:36] LABS: ABSOLUTE BASOPHIL COUNT 0 /CUMM (0.0-0.2); ABSOLUTE EOSINOPHIL COUNT 0 /CUMM (0.0-0.7); ABSOLUTE GRANULOCYTE CT 22.6 /CUMM (1.4-6.5); ABSOLUTE LYMPH COUNT 1.3 /CUMM (1.2-3.4); ABSOLUTE MONOCYTE COUNT 0.8 /CUMM (0.10-0.60); BASOPHIL % 0.1 % (0.0-2.0); EOSINOPHIL % 0 % (0-5); HEMATOCRIT 36.6 % (37-47); MEAN CORPUSCULAR HGB CONC 33.2 G/DL (33.0-37.0); MEAN CORPUSCULAR VOLUME 81.2 FL (81.0-99.0); MEAN PLATELET VOLUME 7.6 FL (7.4-10.4); PLATELET COUNT 395 /CUMM (130-400); RBC DISTRIBUTION WIDTH 17.5 % (11.5-14.5); RED BLOOD CELL CT 4.51 /CUMM (4.20-5.40); WHITE BLOOD CELL COUNT 24.7 /CUMM (4.8-10.8)
[2017-12-08 20:46] LABS: GRANULOCYTE % 91.5 % (42.2-75.2)
--- NOTE | 2017-12-08 20:56 | CT SCAN REPORT ---
EXAMINATION: CT HEAD WITHOUT CONTRAST CLINICAL INFORMATION: Confusion. COMPARISON: Head CT dated 04/10/2017. TECHNIQUE: Contiguous axial imaging was performed from the skull base to vertex without intravenous administration of contrast. The study is limited due to motion artifacts. DLP: 1369.1 mGy-cm FINDINGS: There is no evidence of acute intracranial hemorrhage or territorial infarction. No abnormal mass effect or midline shift is seen. Amador to white matter differentiation is well preserved. No extra-axial fluid collections are identified. Chronic lacunar infarcts are partially visualized in the deep amador matter structures. The ventricles are normal in size. Mild chronic white matter microangiopathic changes are noted. The osseous structures and soft tissues are normal. The mastoid air cells and visualized portions of the paranasal sinuses are well aerated. IMPRESSION: Chronic deep amador matter lacunar infarcts and mild chronic white matter microangiopathy. Limited study with motion artifacts. No definite acute intracranial hemorrhage.
--- NOTE | 2017-12-08 21:23 | RADIOLOGY REPORT ---
EXAMINATION: XR PORTABLE CHEST CLINICAL INFORMATION: Chest pain. COMPARISON: Chest 04/10/2017 TECHNIQUE: Portable frontal view of the chest was obtained. FINDINGS: The heart size is normal. There is increased vascular/interstitial markings suggestive of vascular congestion or interstitial pneumonitis. No consolidation or pleural effusion seen. There is no gross bony abnormality. IMPRESSION: Mild pulmonary vascular congestion or interstitial pneumonitis No consolidation or effusion seen.
--- NOTE | 2017-12-08 23:38 | History & Physical ---
Daja Larry 12/08/17 1116: General Information and HPI MD Statement: I have seen and personally examined MACK ZAMARRIPA and documented this H&P. The patient is a 77 year old F who presented with a patient stated chief complaint of increasing lethargy. Source of Information: family, old records Exam Limitations: unable to give history History of Present Illness: Mr Zamarripa is a 77-year-old woman who is primarily yi speaking, w/ PMHx of CHF, hyperlipidemia, hypokalemia, Alzheimer's dementia, end-stage renal disease, type 2 diabetes, hypothyroidism, multiple recent falls was brought to the ER with a chief concern of altered mental status. Reported decreased by mouth intake. She lives with the family, and previously was a resident of extended care facility until a few months ago. Reported to have decreased verbal communication, and had pain in her lower extremities. She is not ambulatory at baseline, and would communicate with repetitive sentences when needed. She did not have any fever, dyspnea, chest pain. No neurological symptoms. Usually has decreased urine output, but was found to have dark urine in the recent past. She is incontinent at baseline, but did not have any abdominal pain or back pain. No chills reported. She usually takes by mouth medications without any difficulty. No dysphagia was noted. Given her decreased by mouth intake, she has not been adequately covered with insulin. Allergies/Medications Allergies: Coded Allergies: NO KNOWN ALLERGIES (08/01/14) Home Med list Aspirin (Aspirin*) 81 MG TAB.CHEW 1 TAB PO DAILY HEART HEALTH (Reported) Calcitriol 0.25 MCG CAPSULE 1 CAP PO DAILY VITAMIN SUPPORT (Reported) Cholecalciferol (Vitamin D3) 1,000 UNIT TABLET 1 TAB PO DAILY VITAMIN SUPPORT (Reported) Citalopram Hydrobromide (Citalopram HBr) 10 MG TABLET 1 TAB PO DAILY MENTAL HEALTH (Reported) Esomeprazole (Nexium) 40 MG CAPSULE.DR 1 CAP PO DAILY HEART BURN (Reported) Ezetimibe (Zetia) 10 MG TABLET 1 TAB PO DAILY CHOLESTEROL (Reported) Furosemide 80 MG TABLET 1 TAB PO BID WATER PILL (Reported) Insulin Aspart, Recombinant (Novolog Flexpen) (Unknown Strength) INSULN.PEN ( Unknown Dose) SC TIDAC DIABETES (Reported) Insulin Detemir (Levemir) 100 UNIT/ML VIAL 45 UNITS SC BID DM (Reported) Levothyroxine Sodium (Synthroid) 50 MCG TABLET 1 TAB PO DAILY AC THYROID ( Reported) Liraglutide (Victoza 2-Felipe) 0.6 MG/0.1 ML (18 MG/3 ML) PEN.INJCTR 0.2 ML SC DAILY DIABETES (Reported) Mirtazapine 15 MG TABLET 1 TAB PO QHS SLEEP (Reported) Polyethylene Glycol 3350 (Miralax) 17 GRAM POWD.PACK 1 PAC PO DAILY CONSTIPATION dissolve in water Potassium Chloride (Klor-Con M10) 10 MEQ TAB.ER.PRT 4 TAB PO DAILY SUPPLEMENT (Reported) Pregabalin (Lyrica) 25 MG CAPSULE 1 CAP PO Q8H PAIN (Reported) Sennosides (Senna) 8.6 MG TABLET 1 TAB PO BID CONSTIPATION Sitagliptin Phosphate (Januvia) 25 MG TABLET 1 TAB PO DAILY DM (Reported) Trazodone HCl 50 MG TABLET 0.5 TAB PO QHS UNKNOWN (Reported) Compliance With Home Meds: FAIR Past History Travel History Traveled to [place] past 21 day No Medical History Neurological: Alzheimer's disease, dementia EENT: NONE Cardiovascular: CHF, hyperlipidemia, HYPOKALEMIA Respiratory: NONE Gastrointestinal: constipation, GERD Hepatic: NONE Renal: chronic kidney disease, edema Musculoskeletal: falls Psychiatric: depression Endocrine: diabetes, hypothyroidism, vitamin D deficiency Blood Disorders: NONE Cancer(s): NONE 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 Relation not specified for: FH: kidney failure Psychosocial History Who Do You Live With? 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 unknown Name of POA/HCP: Teo Zamarripa---son Functional Ability ADLs Needs Assist: dressing, eating, toileting, bathing. Ambulation: non-ambulatory IADLs Needs Assist: shopping, housework, finances, food prep, telephone, transportation, medication admin. Review of Systems Review of Systems Constitutional: Reports: see HPI. Denies: fever. EENTM: Denies: visual changes. Cardiovascular: Denies: chest pain, edema, orthopena. Respiratory: Denies: cough. GI: Denies: abdominal pain, melena. Genitourinary: Denies: frequency. Musculoskeletal: Denies: back pain, joint pain. Skin: Denies: change in skin color. Neurological/Psychological: Reports: confusion, dementia. Hematologic/Endocrine: Denies: bruising. Exam & Diagnostic Data Last 24 Hrs of Vital Signs/I&O Vital Signs Date Time Temp Pulse Resp B/P B/P Pulse O2 O2 Flow FiO2 Mean Ox Delivery Rate 12/09 0011 98.2 74 19 117/64 97 Room Air 12/08 2244 98.8 82 18 122/56 100 Room Air 12/09 2023 98.8 84 18 113/53 97 Room Air Intake & Output 12/09 0800 12/09 0000 12/08 1600 Intake Total Output Total 100 Balance -100 Output, Urine 100 Patient 120 lb Weight Physical Exam General Appearance Alert, Cooperative, No Acute Distress, not oriented to time, place or person Skin No Rashes, No Breakdown Skin Temp/Moisture Exam: Warm/Dry Sepsis Skin Exam (color): Normal for Ethnicity, Cyanotic, Flushed HEENT Atraumatic, PERRLA, mucosa dry Neck Supple, No JVD, No thryomegaly Lymphatic Axillary nl, Cervical nl Cardiovascular Regular Rate, Normal S1, Normal S2, No Murmurs, systolic murmur Lungs Clear to Auscultation, Normal Air Movement Abdomen Normal Bowel Sounds, Soft, No Tenderness, No Hepatospenomegaly, No Masses Neurological Strength at 5/5 X4 Ext, Normal Tone, Reflexes 2+, limited neuro exam Extremities No Clubbing, No Cyanosis, No Edema, Normal Pulses Vascular Pulses Symmetrical Sepsis Peripheral Pulse Location: Dorsalis Pedis Sepsis Peripheral Pulse Exam: Normal Sepsis Cap Refill Exam: <2 Sec Last 24 Hrs of Labs/Mario: Laboratory Tests 12/09/17 0009: Lactic Acid Pending 12/08/172056: Urinalysis LIGHT H, Urine Color YEL, Urine Clarity TURBD H, Urine pH 5.5, Ur Specific [place] >= 1.030, Urine Protein 30 H, Urine Ketones NEG, Urine Nitrite POS H, Urine Bilirubin NEG, Urine Urobilinogen 0.2, Ur Leukocyte Esterase MOD H, Ur Microscopic SEDIMENT EXAMINED, Urine RBC 10-15 H, Urine WBC PACKD H, Ur Epithelial Cells FEW, Urine Bacteria MANY H, Urine Hemoglobin LARGE H, Urine Glucose NEG 12/08/17 2030: Anion Gap 26 H, Estimated GFR 6 L, BUN/Creatinine Ratio 22.8, Glucose 333 H, Lactic Acid 2.7 H, Calcium 8.9, Total Bilirubin 0.8, AST 24, ALT 48, Alkaline Phosphatase 234 H, Troponin I 0.02, Total Protein 8.3 H, Albumin 3.2 L, Globulin 5.1 H, Albumin/Globulin Ratio 0.6 L, CBC w Diff MAN DIFF ORDERED, RBC 4.51, MCV 81.2, MCH 27.0, MCHC 33.2, RDW 17.5 H, MPV 7.6, Gran % 91.5 H, Lymphocytes % 5.2 L, Monocytes % 3.2, Eosinophils % 0, Basophils % 0.1, Absolute Granulocytes 22.6 H, Segmented Neutrophils 92 H, Band Neutrophils 1, Absolute Lymphocytes 1.3, Lymphocytes 3 L, Monocytes 4, Absolute Monocytes 0.8 H, Absolute Eosinophils 0, Absolute Basophils 0, Platelet Estimate VERIFIED BY SMEAR, Anisocytosis 1+, Fld Total RBCs Counted 100, Acetone Level NEGATIVE Microbiology 12/08 2112 BLOOD: Blood Culture - RECD 12/08 2056 URINE ROUT: Urine Culture - RECD 12/09 2019 BLOOD: Blood Culture - RECD Diagnostic Data EKG Results NSR, LAD, LAFB, No STTWIl. Assessment/Plan Assessment: Mr Zamarripa is a 77-year-old woman who is primarily yi speaking w/ a past medical history of CHF, hyperlipidemia, hypokalemia, Alzheimer's dementia, end-stage renal disease, diabetes, hypothyroidism, multiple recent falls was brought to the ER with a chief concern of altered mental status likely secondary to ESRD resulting from decreased po intake. Vitals-Temperature 98.8, pulse rate 84, respiration 18, blood pressure 113/53, pulse ox 97% on room air. Pertinent lab findings- WBC 24.7 (91.5 granulocytes), hemoglobin 12.2, platelet count 395. Sodium 135, potassium 4.9, chloride 98, bicarbonate 11, anion gap 26 (anion gap metabolic acidosis from renal injury). BUN 155 (last 54-10/17/2017), creatinine 6.8 Glucose 333, acetone negative. Lactic acid 2.7-->1.9 Calcium 8.9, albumin 3.2 AST 24, ALT 48, alkaline phosphatase 234 (likely metabolic osteodystrophy) Troponin 0.02, Urinalysis revealed leukocyte esterase, nitrites positive, pyurea. Echocardiogram-July 2016 Normal size left ventricle. Left ventricular ejection fraction is estimated at >60%. Mild mitral regurgitation. Mild to moderate aortic regurgitation. Mild aortic stenosis. Mild tricuspid regurgitation. No evidence of pulmonary hypertension. Etiology in her case of having acute on chronic kidney disease is likely multifactorial; with dehydration being more likely in conjunction with worsening kidney disease and uncontrolled diabetes. She appears to have altered mental status, likely from dehydration, worsening dementia or uremic encephalopathy. She does not have other symptoms of uremia such as asterixis, seizures, bleeding. She needs to be hemodialyzed, if kidney function does not improve after intravenous fluid administration. In regards to her diabetes, she is on multiple antidiabetic drugs including insulin. It is unclear, why she is on Januvia and Victoza at the same time. She also has an anion gap metabolic acidosis, with very low bicarbonate likely from kidney injury. It was also noted that she has pyuria, and altered mental status in elderly could be from urinary tract infection until proven otherwise. Problem list: #1 acute on chronic kidney disease #2 metabolic encephalopathy #3 type 2 diabetes #4 Alzheimer's dementia #5 history of CHF #6 history of end-stage renal disease #7 abnormal urinalysis #8 leukocytosis with granulocytosis. Plan: -Observe the patient one general medicine service. -Patient's family refused further care such as hemodialysis at this time. -Continue intravenous fluids -Consider treating with sodium bicarbonate, if metabolic acidosis does not improve after fluid resuscitation. -Insulin sliding scale, 3 times a day before meals. -Levemir 20 units twice a day -Continue ceftriaxone, pending culture results. -Follow blood cultures, urine cultures. -Nephrology evaluation. -Patient's family requested possible hospice evaluation. -Continue calcitriol, given chronic kidney disease. Other electrolytes within normal limits. -Continue levothyroxine. -Recheck BP with creatinine in the morning. -Check hemoglobin A1c. -Check urine lites, Fe in today with what managers na, osmolarity. - Checklist: #1 DVT prophylaxis-subcutaneous heparin #2 consults-nephrology. #3 possible hospice evaluation. #4 GI prophylaxis-Protonix. As Ranked By This Provider Problem List: 1. Renal failure 2. Chronic renal failure 3. Anemia 4. UTI (urinary tract infection) Core Measures/Misc (02/23) Acute Coronary Syndrome ACS Diagnosis: No Congestive Heart Failure Congestive Heart Failure Diagnosis No Cerebrovascular Accident CVA/TIA Diagnosis: No VTE (View Protocol) VTE Risk Factors Acute Medical Illness No Mechanical VTE Prophylaxis d/t N/A MechProphylax Ordered No VTE Pharm Prophylaxis d/t NA PharmProphylax ordered Sepsis (View protocol) Sepsis Present: No If YES complete Sepsis Event Note If YES complete Sepsis Event Note Pamela Mooney MD 12/09/17 0026: Core Measures/Misc (02/23) Sepsis (View protocol) If YES complete Sepsis Event Note If YES complete Sepsis Event Note Attending MD Review Statement Attending Statement Attending MD Statement: examined this patient, discuss w/resident/PA/FARM HAND, agreed w/resident/PA/FARM HAND, reviewed EMR data (avail) Attending Assessment/Plan: 77F PMH HTN, HLD, hypothyroidism,T2DM complicated with diabetic nephropathy and CKD stage V, diabetic neuropathy on Lyrica, chronic HFpEF, GERD, depression and Alzheimer's dementia brought in by family for altered mental status. Patient has not been speaking for the past 3 days. She is uncomfortable and anxious, and per family, has been trying to get words out but has been unable. She has no infectious symptoms, no trauma, no falls, no new medications. She was recently seen by Dr. Hills in October when her creatinine was 3.6 and was told she may need dialysis. Family says they do not want dialysis, as the patient has severe dementia and poor quality of life, and do not want to increase her suffering. Her creatinine today is 6.5 with a BUN of 155. Potassium normal. Urine output normal. Discussed goals of care with family, patient made DNR/DNI. 1. Uremic encephalopathy 2. Acute renal failure 3. ESRD Plan - Observation in general medicine - IV hydration - Nephrology consult - Monitor urine output - Continue home medications - DVT PPx - Continue goals of care discussion - Continue goals of care discussion
[2017-12-09 01:06] VITALS: BP 118/42
[2017-12-09 06:53] VITALS: BP 116/50
--- NOTE | 2017-12-09 07:38 | PN-Observation ---
IliaSunita 12/09/17 0738: Observation Note Observation Note _ I have personally examined MACK BARBER. her disposition is uncertain at this time. Before a determination can be made, she requires continued observation for the following reasons [acute on CKD]. Assessment/Plan Medical Assessment: Mr Barber is a 77-year-old woman who is primarily malay speaking w/ a past medical history of CHF, hyperlipidemia, hypokalemia, Alzheimer's dementia, end-stage renal disease, diabetes, hypothyroidism, multiple recent falls was brought to the ER with a chief concern of altered mental status likely secondary to ESRD resulting from decreased po intake. Vitals-Temperature 98.8, pulse rate 84, respiration 18, blood pressure 113/53, pulse ox 97% on room air. Pertinent lab findings- WBC 24.7 (91.5 granulocytes), hemoglobin 12.2, platelet count 395. Sodium 135, potassium 4.9, chloride 98, bicarbonate 11, anion gap 26 (anion gap metabolic acidosis from renal injury). BUN 155 (last 54-10/17/2017), creatinine 6.8 Glucose 333, acetone negative. Lactic acid 2.7-->1.9 Calcium 8.9, albumin 3.2 AST 24, ALT 48, alkaline phosphatase 234 (likely metabolic osteodystrophy) Troponin 0.02, Urinalysis revealed leukocyte esterase, nitrites positive, pyurea. Echocardiogram-July 2016 Normal size left ventricle. Left ventricular ejection fraction is estimated at >60%. Mild mitral regurgitation. Mild to moderate aortic regurgitation. Mild aortic stenosis. Mild tricuspid regurgitation. No evidence of pulmonary hypertension. Etiology in her case of having acute on chronic kidney disease is likely multifactorial; with dehydration being more likely in conjunction with worsening kidney disease and uncontrolled diabetes. She appears to have altered mental status, likely from dehydration, worsening dementia or uremic encephalopathy. She does not have other symptoms of uremia such as asterixis, seizures, bleeding. She needs to be hemodialyzed, if kidney function does not improve after intravenous fluid administration. In regards to her diabetes, she is on multiple antidiabetic drugs including insulin. It is unclear, why she is on Januvia and Victoza at the same time. She also has an anion gap metabolic acidosis, with very low bicarbonate likely from kidney injury. It was also noted that she has pyuria, and altered mental status in elderly could be from urinary tract infection until proven otherwise. Problem list: #1 acute on chronic kidney disease #2 metabolic encephalopathy #3 type 2 diabetes #4 Alzheimer's dementia #5 history of CHF #6 history of end-stage renal disease #7 abnormal urinalysis #8 leukocytosis with granulocytosis. Plan: -Placed in observation on [facility] floor -Patient's family refused further care such as hemodialysis at this time. -Continue intravenous fluids -Consider treating with sodium bicarbonate, if metabolic acidosis does not improve after fluid resuscitation. -Insulin sliding scale, 3 times a day before meals. -Levemir 20 units twice a day -Continue ceftriaxone, pending culture results. NGTD for now on both blood/urine -Nephrology evaluation in the AM -Patient's family requested possible hospice evaluation. -Continue calcitriol, given chronic kidney disease. Other electrolytes within normal limits. -Continue levothyroxine. -Recheck BP with creatinine in the morning. -Check hemoglobin A1c. -Check urine lites, Checklist: #1 DVT prophylaxis-subcutaneous heparin #2 consults-nephrology. #3 possible hospice evaluation. #4 GI prophylaxis-Protonix. Problem List: 1. Renal failure Subjective Follow-up For: #1 acute on chronic kidney disease #2 metabolic encephalopathy #3 type 2 diabetes #4 Alzheimer's dementia #5 history of CHF #6 history of end-stage renal disease #7 abnormal urinalysis #8 leukocytosis with granulocytosis. Subjective: No overnight event. Patient was at baseline demented without specific complaint. Appeared not in distress. Family not at bedside at the moment., Review of Systems Constitutional: Reports: see HPI. Objective Last 24 Hrs of Vital Signs/I&O Vital Signs Date Time Temp Pulse Resp B/P B/P Pulse O2 O2 Flow FiO2 Mean Ox Delivery Rate 12/09 0653 97.2 80 16 116/50 96 Room Air 12/09 0106 97.3 82 16 118/42 96 Room Air 12/09 0011 98.2 74 19 117/64 97 Room Air 12/08 2244 98.8 82 18 122/56 100 Room Air 12/08 2024 98.8 84 18 113/53 97 Room Air Intake & Output 12/09 0800 07/03 0000 07 1600 Intake Total Output Total 250 100 Balance -250 -100 Output, Urine 250 100 Patient 54.431 kg 54.431 kg Weight Physical Exam General Appearance: No Acute Distress Elis,Manik 12/09/17 1105: Attending Addendum Attending Brief Note 77F PMH HTN, HLD, hypothyroidism,T2DM complicated with diabetic nephropathy and CKD stage V, diabetic neuropathy on Lyrica, chronic HFpEF, GERD, depression and Alzheimer's dementia brought in by family for altered mental status. Patient also c/o suprapubic pain. She is being treated for possible UTI. Patient needs dialysis for her worsening kidney function, however family declines and wants comfort care and pain control as primary goals of care. 1. Uremic encephalopathy 2. Acute renal failure 3. ESRD 4. DM uncontrolled. Plan - Hospice evaluation - Nephrology consult pending - Continue home medications - pain control. - DVT PPx - DNR/DNI.
[2017-12-09 09:46] LABS: ABSOLUTE BASOPHIL COUNT 0 /CUMM (0.0-0.2); ABSOLUTE EOSINOPHIL COUNT 0 /CUMM (0.0-0.7); ABSOLUTE GRANULOCYTE CT 19.6 /CUMM (1.4-6.5); ABSOLUTE LYMPH COUNT 1.1 /CUMM (1.2-3.4); ABSOLUTE MONOCYTE COUNT 0.8 /CUMM (0.10-0.60); BASOPHIL % 0.1 % (0.0-2.0); EOSINOPHIL % 0 % (0-5); GRANULOCYTE % 91.1 % (42.2-75.2); MEAN CORPUSCULAR HGB 27.2 PG (27.0-31.0); MEAN CORPUSCULAR HGB CONC 33.1 G/DL (33.0-37.0); MEAN CORPUSCULAR VOLUME 82.2 FL (81.0-99.0); MEAN PLATELET VOLUME 7.5 FL (7.4-10.4); PLATELET COUNT 364 /CUMM (130-400); RED BLOOD CELL CT 4.26 /CUMM (4.20-5.40); WHITE BLOOD CELL COUNT 21.5 /CUMM (4.8-10.8)
--- NOTE | 2017-12-09 12:04 | Cons- Nephrology ---
General Information and HPI Consulting Request Date of Consult: 12/09/17 Requested By: Elis WHEELER,Иван Reason for Consult: Allie on CKD Source of Information: patient Exam Limitations: confusion, dementia History of Present Illness: The patient is an unfortunate 77-year-old female with a long-standing history of diabetes and hypertension, chronic kidney disease stage V with a baseline creatinine of approximately 4 mg/dL associated with nonnephrotic proteinuria was followed by Dhaval Hills MD at our office. She also has a history of congestive heart failure and is on Lasix 80 mg by mouth daily at home. She is a prior bout of ATI secondary to volume depletion from metolazone as well as a prior bout of obstructive uropathy from urinary retention. She was brought to the hospital by her family who noted that since Friday she's had more fatigue, poor by mouth intake, darker urine, as well as worsening confusion. She has a baseline history of dementia and is wheelchair-bound and minimally verbal, however the past few days has pretty much been nonverbal and eating worsened baseline. She was found to be in worsening renal failure with a creatinine level of 6.8 on admission with a BUN of 155. Stuart catheter was placed today. She is not been hypotensive. She is not on NSAIDs and no IV contrast. There is a metabolic acidosis with a bicarbonate level of 11 with an anion gap of 26. Allergies/Medications Allergies: Coded Allergies: NO KNOWN ALLERGIES (08/01/14) Home Med List: Aspirin (Aspirin*) 81 MG TAB.CHEW 1 TAB PO DAILY HEART HEALTH (Reported) Calcitriol 0.25 MCG CAPSULE 1 CAP PO DAILY VITAMIN SUPPORT (Reported) Cholecalciferol (Vitamin D3) 1,000 UNIT TABLET 1 TAB PO DAILY VITAMIN SUPPORT (Reported) Citalopram Hydrobromide (Citalopram HBr) 10 MG TABLET 1 TAB PO DAILY MENTAL HEALTH (Reported) Esomeprazole (Nexium) 40 MG CAPSULE.DR 1 CAP PO DAILY HEART BURN (Reported) Ezetimibe (Zetia) 10 MG TABLET 1 TAB PO DAILY CHOLESTEROL (Reported) Furosemide 80 MG TABLET 1 TAB PO BID WATER PILL (Reported) Insulin Aspart, Recombinant (Novolog Flexpen) (Unknown Strength) INSULN.PEN ( Unknown Dose) SC TIDAC DIABETES (Reported) Insulin Detemir (Levemir) 100 UNIT/ML VIAL 45 UNITS SC BID DM (Reported) Levothyroxine Sodium (Synthroid) 50 MCG TABLET 1 TAB PO DAILY AC THYROID ( Reported) Liraglutide (Victoza 2-Felipe) 0.6 MG/0.1 ML (18 MG/3 ML) PEN.INJCTR 0.2 ML SC DAILY DIABETES (Reported) Mirtazapine 15 MG TABLET 1 TAB PO QHS SLEEP (Reported) Polyethylene Glycol 3350 (Miralax) 17 GRAM POWD.PACK 1 PAC PO DAILY CONSTIPATION dissolve in water Potassium Chloride (Klor-Con M10) 10 MEQ TAB.ER.PRT 4 TAB PO DAILY SUPPLEMENT (Reported) Pregabalin (Lyrica) 25 MG CAPSULE 1 CAP PO Q8H PAIN (Reported) Sennosides (Senna) 8.6 MG TABLET 1 TAB PO BID CONSTIPATION Sitagliptin Phosphate (Januvia) 25 MG TABLET 1 TAB PO DAILY DM (Reported) Trazodone HCl 50 MG TABLET 0.5 TAB PO QHS UNKNOWN (Reported) Current Medications: Current Medications Sig/Leo Start time Last Medication Dose Route Stop Time Status Admin Calcitriol 0.25 MCG DAILY 12/09 899 AC PO Ceftriaxone Sodium 1,000 MG DAILY 12/09 09 AC 12/09 IV 0908 Cholecalciferol 1,000 IU DAILY 12/09 899 AC PO Citalopram 10 MG DAILY 12/09 09 AC 12/09 Hydrobromide PO 0908 Heparin Sodium 5,000 UNIT Q8 12/09 06 AC 12/09 (Porcine) [place] 0535 Insulin Aspart 0 TIDAC 12/09 08 AC 12/09 [place] 0907 Insulin Aspart 3 UNITS ONCE ONE 12/09 0530 AZ 12/09 AZ 12/09 0531 0535 Insulin Aspart 5 UNITS ONCE ONE 12/09 0345 DC 12/09 AZ 12/09 0346 0355 Insulin Aspart 3 UNITS ONCE ONE 12/09 0100 DC 12/09 AZ 12/09 0101 0112 Insulin Detemir 20 UNITS BID 12/09 09 AC 12/09 SC 0918 Insulin Detemir 10 UNITS BID 12/09 0037 AZ 12/09 SC 0112 Levothyroxine Sodium 0.05 MG DAILY AC 12/09 07 AC PO Morphine Sulfate 2 MG Q6P PRN 12/09 1030 AC 12/09 IV 1053 Omeprazole 40 MG DAILY AC 12/09 07 AC PO Pregabalin 25 MG Q8H 12/09 0045 AC PO Sodium Chloride 1,000 ML DAILY 12/09 0900 DC IV Sodium Chloride 1,000 ML Q20H 12/09 0100 DC 12/09 IV 12/09 1059 0107 Sodium Chloride 1,000 ML Q8H 12/08 2230 DC / IV 2231 Review of Systems Review of Systems: Unable to obtain due to patient being nonverbal I did review her review of systems with her family, 10 point. 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 Relation not specified for: FH: kidney failure Psychosocial History Who Do You Live With? [facility] Services at Home: None Primary Language: Nepali Smoking Status: Never Smoked ETOH Use: denies use Illicit Drug Use: denies illicit drug use Power of Business Operations Analyst/HCP? unknown Name of POA/HCP: Teo Zamarripa---son Functional Ability ADLs Needs Assist: dressing, eating, toileting, bathing. Ambulation: non-ambulatory IADLs Needs Assist: shopping, housework, finances, food prep, telephone, transportation, medication admin. Exam & Diagnostic Data Vital Signs and I&O Vital Signs Date Time Temp Pulse Resp B/P B/P Pulse O2 O2 Flow FiO2 Mean Ox Delivery Rate 12/09 0653 97.2 80 16 116/50 96 Room Air 12/09 0106 97.3 82 16 118/42 96 Room Air 12/09 0011 98.2 74 19 117/64 97 Room Air 12/08 2244 98.8 82 18 122/56 100 Room Air 12/09 2023 98.8 84 18 113/53 97 Room Air Intake & Output 12/09 1600 12/09 0400 12/08 1600 12/08 0400 12/07 0400 Intake Total 800 Output Total 500 100 Balance 300 -100 Intake, IV 800 Output, Urine 500 100 Patient 119 lb 120 lb Weight Physical Exam: General: NAD, A+O x3. Frail. nonverbal HEENT: NC/AT. No icterus. Moist mucosa Neck: negative for RAOUL, JVD CV: RRR, no m/r/g Pulm: CTAB, no rales Abd: soft, NT/ND, negative renal bruits Lower Ext: neg edema or chronic venous changes Upper Ext: no AVFs or AVGs Back: negative for CVA tenderness Neuro: neg tremor, asterixis Skin: no rash, jaundice : + stuart catheter, dark urine Results Pertinent Lab Results: Laboratory Tests 12/09 12/09 12/09 0710 0028 0009 Chemistry Sodium (137 - 145 mmol/L) 143 Potassium (3.5 - 5.1 mmol/L) 4.2 Chloride (98 - 107 mmol/L) 106 Carbon Dioxide (22 - 30 mmol/L) 11 L Anion Gap (5 - 16) 26 H BUN (7 - 17 mg/dL) 151 *H Creatinine (0.5 - 1.0 mg/dL) 6.3 *H Estimated GFR (>60 ml/min) 6 L BUN/Creatinine Ratio (7 - 25 %) 19.0 Lactic Acid (0.7 - 2.1 mmol/L) 1.9 Phosphorus Cancelled Hematology CBC w Diff MAN DIFF ORDERED WBC (4.8 - 10.8 /CUMM) 21.5 H RBC (4.20 - 5.40 /CUMM) 4.26 Hgb (12.0 - 16.0 G/DL) 11.6 L Hct (37 - 47 %) 35.0 L MCV (81.0 - 99.0 FL) 82.2 MCH (27.0 - 31.0 PG) 27.2 MCHC (33.0 - 37.0 G/DL) 33.1 RDW (11.5 - 14.5 %) 18.0 H Plt Count (130 - 400 /CUMM) 364 MPV (7.4 - 10.4 FL) 7.5 Gran % (42.2 - 75.2 %) 91.1 H Lymphocytes % (20.5 - 51.1 %) 5.2 L Monocytes % (1.7 - 9.3 %) 3.6 Eosinophils % (0 - 5 %) 0 Basophils % (0.0 - 2.0 %) 0.1 Absolute Granulocytes (1.4 - 6.5 /CUMM) 19.6 H Absolute Lymphocytes (1.2 - 3.4 /CUMM) 1.1 L Absolute Monocytes (0.10 - 0.60 /CUMM) 0.8 H Absolute Eosinophils (0.0 - 0.7 /CUMM) 0 Absolute Basophils (0.0 - 0.2 /CUMM) 0 Platelet Estimate (ADEQUATE) VERIFIED BY SMEAR Polychromasia 1+ Anisocytosis 1+ 12/087 Urines Urinalysis LIGHT H Urine Color (YEL,AMB,STR) YEL Urine Clarity (CLEAR) TURBD H Urine pH (5.0 - 8.0) 5.5 Ur Specific [place] (1.001 - 1.035) >= 1.030 Urine Protein (NEG,<30 MG/DL) 30 H Urine Ketones (NEG) NEG Urine Nitrite (NEG) POS H Urine Bilirubin (NEG) NEG Urine Urobilinogen (0.1 - 1.0 EU/dl) 0.2 Ur Leukocyte Esterase (NEG) MOD H Ur Microscopic SEDIMENT EXAMINED Urine RBC (0 - 5 /HPF) 10-15 H Urine WBC (0 - 2 /HPF) PACKD H Ur Epithelial Cells (NONE,FEW) FEW Urine Bacteria (NEG/NONE) MANY H Urine Hemoglobin (NEG) LARGE H Urine Glucose (N MG/DL) NEG 12/08 2030 Chemistry Sodium (137 - 145 mmol/L) 135 L Potassium (3.5 - 5.1 mmol/L) 4.9 Chloride (98 - 107 mmol/L) 98 Carbon Dioxide (22 - 30 mmol/L) 11 L Anion Gap (5 - 16) 26 H BUN (7 - 17 mg/dL) 155 *H Creatinine (0.5 - 1.0 mg/dL) 6.8 *H Estimated GFR (>60 ml/min) 6 L BUN/Creatinine Ratio (7 - 25 %) 22.8 Glucose (65 - 99 mg/dL) 333 H Lactic Acid (0.7 - 2.1 mmol/L) 2.7 H Calcium (8.4 - 10.2 mg/dL) 8.9 Total Bilirubin (0.2 - 1.3 mg/dL) 0.8 AST (14 - 36 U/L) 24 ALT (9 - 52 U/L) 48 Alkaline Phosphatase (<127 U/L) 234 H Troponin I (< 0.11 ng/ml) 0.02 Total Protein (6.3 - 8.2 g/dL) 8.3 H Albumin (3.5 - 5.0 g/dL) 3.2 L Globulin (1.9 - 4.2 gm/dL) 5.1 H Albumin/Globulin Ratio (1.1 - 2.2 %) 0.6 L Hematology CBC w Diff MAN DIFF ORDERED WBC (4.8 - 10.8 /CUMM) 24.7 H RBC (4.20 - 5.40 /CUMM) 4.51 Hgb (12.0 - 16.0 G/DL) 12.2 Hct (37 - 47 %) 36.6 L MCV (81.0 - 99.0 FL) 81.2 MCH (27.0 - 31.0 PG) 27.0 MCHC (33.0 - 37.0 G/DL) 33.2 RDW (11.5 - 14.5 %) 17.5 H Plt Count (130 - 400 /CUMM) 395 MPV (7.4 - 10.4 FL) 7.6 Gran % (42.2 - 75.2 %) 91.5 H Lymphocytes % (20.5 - 51.1 %) 5.2 L Monocytes % (1.7 - 9.3 %) 3.2 Eosinophils % (0 - 5 %) 0 Basophils % (0.0 - 2.0 %) 0.1 Absolute Granulocytes (1.4 - 6.5 /CUMM) 22.6 H Segmented Neutrophils (42.2 - 75.2 %) 92 H Band Neutrophils (0.0 - 5.0 %) 1 Absolute Lymphocytes (1.2 - 3.4 /CUMM) 1.3 Lymphocytes (20.5 - 51.1 %) 3 L Monocytes (1.7 - 9.3 %) 4 Absolute Monocytes (0.10 - 0.60 /CUMM) 0.8 H Absolute Eosinophils (0.0 - 0.7 /CUMM) 0 Absolute Basophils (0.0 - 0.2 /CUMM) 0 Platelet Estimate (ADEQUATE) VERIFIED BY SMEAR Anisocytosis 1+ Other Body Source Fld Total RBCs Counted (%) 100 Toxicology Acetone Level (NEGATIVE) NEGATIVE Assessment/Plan Assessment/Recommendations Assessment: ALLIE: I suspect due to prerenal azotemia from the urinary tract infection and poor by mouth intake. Agree with gentle IV hydration. Would change IV fluids to a bicarbonate-based solution given the significant metabolic acidosis. Would check a renal ultrasound to rule out obstructive uropathy. There is no acute dialytic need at this time and the patient is a "do not dialyze." Dhaval Hills MD has spoken to the family in the past and numerous occasions and they have elected to avoid dialysis. Given her dementia and frailty and comorbidities, she is extremely poor dialysis candidate, and I respect the patient's family's decision to avoid dialysis. I agree discuss dialysis with the family today and they are considering comfort/hospice care, and are clear they would like dialysis to be avoided. Metabolic acidosis: I suspect due to acute on chronic renal failure. This is an elevated anion gap metabolic acidosis. Lactic acid is ok at 1.9. Would change IV fluids to bicarbonate-based solution. Recommendations: Renal ultrasound Change IV fluids to D5W with 150 MG meq sodium bicarbonate at 75 mL per hour; once the serum bicarbonate level is greater than 16 they would change IVFs to to D5 1/2 NS. "Do not dialyze" status Hospice evaluation. Family may delay hospice for 1-2 days to assess to see if there is any clinical improvement, but if no clinical improvement they seemed very open to comfort measures Thank you for the consult. Please don't hesitate to call with any questions or concerns
--- NOTE | 2017-12-09 18:24 | ULTRASOUND REPORT ---
EXAMINATION: US RETROPERITONEAL COMPLETE (RENAL) CLINICAL INFORMATION: AK I, renal failure. COMPARISON: CT abdomen and pelvis 09/26/2017, renal ultrasound 04/11/2017 TECHNIQUE: Real-time imaging of the kidneys and bladder. Technically challenging exam. The patient is nonverbal and unable to follow instructions for positioning and breathing. FINDINGS: RIGHT KIDNEY: 7.9 x 4.1 x 3.6 cm (SAG x AP x TRV). The kidney has a normal contour, and echogenicity. Renal cortical thickness is normal. No calculi or focal parenchymal lesions. No hydronephrosis. LEFT KIDNEY: 7.7 x 3.8 x 3.3 cm (SAG x AP x TRV). The kidney is a normal contour and echogenicity. Renal cortical thickness is normal. No calculi or focal parenchymal lesions. No hydronephrosis.There is a 1.8 x 2.3 x 2.7 cm cyst in the upper pole of the left kidney. BLADDER: Bladder is decompressed. Bilateral ureteral jets are not demonstrated. IMPRESSION: Technically limited exam due to patient's inability to follow structures for positioning and breathing. No hydronephrosis. Left upper pole renal cyst..
[2017-12-09 22:49] VITALS: BP 130/60
[2017-12-10 06:30] VITALS: BP 104/40
--- NOTE | 2017-12-10 10:12 | PN- Housestaff ---
See Addendum Subjective Follow-up For: ALLIE Subjective: No overnight event. Patient was at baseline demented per nurse without specific complaint. Appears agitated rolling back and forth in the bed left arm raised. Talked to son today who is outside patient's room. States that he feels that his mother is in a bit more pain today and she is writhing around on the bed. Son states that she looked like this when she first presented to the ED. Review of Systems Constitutional: Reports: see HPI. Objective Last 24 Hrs of Vital Signs/I&O Vital Signs Date Time Temp Pulse Resp B/P B/P Pulse O2 O2 Flow FiO2 Mean Ox Delivery Rate 12/10 0630 98.2 70 16 104/40 96 Room Air 12/09 2249 98.1 76 19 130/60 97 Room Air 12/09 1600 Room Air Intake & Output 12/10 1600 12/10 0800 12/10 0000 Intake Total 600 675 Output Total 300 600 Balance 300 75 Intake, IV 600 675 Output, Urine 300 600 Physical Exam General Appearance: Alert Skin Temp/Moisture Exam: Warm/Dry Cardiovascular: Regular Rate, Normal S1, Normal S2 Lungs: Clear to Auscultation Abdomen: Soft, No Tenderness Extremities: No Edema Assessment/Plan Assessment: Mr Zamarripa is a 77-year-old woman who is primarily azeri speaking w/ a past medical history of CHF, hyperlipidemia, hypokalemia, Alzheimer's dementia, end-stage renal disease, diabetes, hypothyroidism, multiple recent falls was brought to the ER with a chief concern of altered mental status likely secondary to ESRD resulting from decreased po intake. Being treated for ALLIE. Problem list: #1 acute on chronic kidney disease #2 metabolic encephalopathy #3 type 2 diabetes #4 Alzheimer's dementia #5 history of CHF #6 history of end-stage renal disease #7 abnormal urinalysis #8 leukocytosis with granulocytosis. Plan: -We will switch patient from OBS to inpatient. -Patient's family refused further care such as hemodialysis at this time. We will continue discussion with patient's family regarding possible hospice eval. -Nephrology evaluation appreciated. Renal ultrasound shows no hydronephrosis or obstructive uropathy. Left renal cyst. Was on D5W with 150 mg q. sodium bicarb at 75 mL/h, however is switched to D5 half normal saline per nephro recommendations of switching when bicarb is greater than 16. We will monitor carefully given history of CHF and renal disease. -Insulin sliding scale, 3 times a day before meals. -Levemir 20 units twice a day -Continue ceftriaxone, pending culture results. Urine culture grew staph aureus. Cannot rule out MRSA. We will consider switching and or adding antibiotics. Blood culture has no growth to date. -Continue calcitriol, given chronic kidney disease. -Continue levothyroxine. -Creatinine 4.8 today. BUN also went down from 151->141 today. -Follow-up hemoglobin A1c. -Pain controlpatient has gotten several doses of morphine, IV Tylenol. Checklist: #1 DVT prophylaxis-subcutaneous heparin #2 consults-nephrology appreciated. #3 possible hospice evaluation. #4 GI prophylaxis-Protonix. Problem List: 1. Acute on chronic renal failure Pain Ratin Pain Location: na Pain Goal: Remain pain free Pain Plan: PRN Tomorrow's Labs & Rationales: BEP- monitor renal function/ALLIE
[2017-12-10 15:23] VITALS: BP 120/60
[2017-12-10 22:35] VITALS: BP 100/60
[2017-12-11 06:39] VITALS: BP 100/64
--- NOTE | 2017-12-11 08:54 | PN- Housestaff ---
Corey Amaya 12/11/17 0854: Subjective Follow-up For: Acute kidney injury in setting of CKD Subjective: Patient examined at bedside. Son is in room as well. Patient still continues to arrive, agitated at bedside. Patient had gotten morphine overnight. Patient refuses p.o. medications, is still demented at baseline. Was given a dose of Ativan, which calmed patient substantially. Review of Systems Constitutional: Reports: see HPI. Objective Last 24 Hrs of Vital Signs/I&O Vital Signs Date Time Temp Pulse Resp B/P B/P Pulse O2 O2 Flow FiO2 Mean Ox Delivery Rate 12/11 1425 97.0 82 18 105/60 95 Room Air 12/11 0800 94 Room Air / 0639 98.2 60 24 100/64 94 Room Air 12/11 0000 Room Air 12/10 2235 98.3 68 20 100/60 93 Room Air Intake & Output 12/11 1600 12/11 0800 07/ 0000 Intake Total 600 600 Output Total 250 250 Balance 350 350 Intake, IV 600 600 Intake, Oral 0 0 Output, Urine 250 250 Patient 118 lb 128 lb Weight Physical Exam General Appearance: Alert, Mild Distress Skin Temp/Moisture Exam: Warm/Dry Cardiovascular: Regular Rate, Normal S1, Normal S2 Lungs: Clear to Auscultation, Normal Air Movement Abdomen: Soft, generalized tenderness in setting of agitation Extremities: No Edema Current Medications: Current Medications Sig/Leo Start time Last Medication Dose Route Stop Time Status Admin Calcitriol 0.25 MCG DAILY 12/09 899 AC PO Cholecalciferol 1,000 IU DAILY 12/09 899 AC PO Citalopram 10 MG DAILY 12/09 09 AC 12/09 Hydrobromide PO 0908 Dextrose 25 GM ONCE ONE 12/105 DC 12/10 IV 12/106 2121 Dextrose/Sodium 1,000 ML Q13H 12/10 1200 DC 12/11 Chloride IV 0521 Dextrose/Water 1,000 ML Q13H 12/11 1245 AC 12/11 IV 1307 Heparin Sodium 5,000 UNIT Q8 12/09 0600 AC 12/11 (Porcine) SC 1307 Insulin Aspart 0 TIDAC 12/09 0800 DC 12/10 SC 0816 Insulin Detemir 20 UNITS BID 12/09 0900 AC 12/10 SC 0816 Insulin Human Regular 0 Q6 12/11 1800 AC SC Levothyroxine Sodium 0.05 MG DAILY AC 12/09 0700 AC PO Lorazepam 2 MG .STK-MED ONE 12/11 1520 DC IV 12/11 1521 Lorazepam 0.5 MG Q6-PRN PRN 12/11 1045 AC 12/11 IV 1448 Lorazepam 0.5 MG ONCE ONE 12/11 0800 DC 12/11 IV 12/11 0801 0811 Morphine Sulfate 2 MG Q6P PRN 12/09 1030 AC 12/11 IV 0528 Omeprazole 40 MG DAILY AC 12/09 07 AC PO Potassium Chloride 10 MEQ Q1H 12/11 1115 DC 12/11 IV 12/11 1316 1448 Pregabalin 25 MG Q8H 12/09 0045 AC PO Last 24 Hrs of Lab/Mario Results Last 24 Hrs of Labs/Mics: Laboratory Tests 12/11/17 0922: Anion Gap 16, Estimated GFR 11 L, BUN/Creatinine Ratio 29.0 H Assessment/Plan Assessment: Mr Zamarripa is a 77-year-old woman who is primarily luxembourgish speaking w/ a past medical history of CHF, hyperlipidemia, hypokalemia, Alzheimer's dementia, end-stage renal disease, diabetes, hypothyroidism, multiple recent falls was brought to the ER with a chief concern of altered mental status likely secondary to ESRD resulting from decreased po intake. Being treated for ALLIE. Problem list: #1 acute on chronic kidney disease #2 UTI - patient's culture has grown MRSA #3 metabolic encephalopathy #4 type 2 diabetes #5 Alzheimer's dementia #6 history of CHF #7 history of end-stage renal disease #8 abnormal urinalysis #9 leukocytosis with granulocytosis. #10 hypokalemia Plan: -Patient has been switched to inpatient from observation to treat acute kidney injury and MRSA urinary tract infection. -Patient's family refused further care such as hemodialysis at this time. Potential switch to comfort care, patient's extended family is flying in tomorrow and will discuss.. -Nephrology evaluation appreciated. Renal ultrasound shows no hydronephrosis or obstructive uropathy. Left renal cyst. We will switch fluids to D5W at 75 cc/ h. Added potassium as she was also hypokalemic 2.6 today. Follow-up with [facility] tomorrow. Will also add Benadryl 25 mg for itching at night. -Insulin sliding scale, 3 times a day before meals. -Levemir 20 units twice a day -Cultures grown MRSA. Patient was switched to vancomycin. She is renally dosed , was given 750 mg last night. Based on the vancomycin level, we will adjust her dose. Per pharmacy if vancomycin level is >20 mcg/mL she does not need an additional dose and we can check her levels 24 hours the next day. However, if patient's vancomycin level is <20 mcg/mL, then we can give her another 750 mg. We will monitor closely as vancomycin is nephrotoxic. -Continue calcitriol, given chronic kidney disease. -Continue levothyroxine. -Creatinine 4.1 today trending down towards her baseline of 4.. BUN continues to trend downwards from 141 yesterday to 119 today. -A1c was 10.1. -Pain controlpatient has gotten several doses of morphine, IV Tylenol. Patient is still agitated. Patient has responded very well to Ativan. Placed on Ativan 0.5 mg every 6 as needed standing. Checklist: #1 DVT prophylaxis-subcutaneous heparin #2 consults-nephrology appreciated. #3 possible hospice evaluation. #4 GI prophylaxis-Protonix. Problem List: 1. Acute renal failure Pain Ratin Pain Location: unable to localize Pain Goal: Remain pain free Pain Plan: Morphine, tylenol, ativan PRN Tomorrow's Labs & Rationales: [facility] - follow Иван Ortiz 12/11/17 1138: Attending Review Statement Attending Statement Attending MD Statement: examined this patient, discuss w/resident/PA/ASPARAGUS BUNCHER, agreed w/resident/PA/ASPARAGUS BUNCHER, discussed with family, reviewed EMR data (avail), discussed with nursing, discussed with case mgmt, reviewed images, amended to note Attending Assessment/Plan: Patient sleeping in her bed. Patient labs show mild improvement in creatinine. She has metabolic acidosis from acute on chronic renal failure. She dose have encephalopathy from high BUN. UTI is being treated with iv abx. Nephrology appreciated. Do not dilayse status. Follow nephrology recommendations. Patient requiring IVF for acute kidney injury. Monitor creatinine and BUN. DNR/ DNI. Follow up hospice evalaution if family wishes to discontinue IVF and inpatient vs home hospcie. Awaiting family memeber coming from outside country. Family inclined towards no aggressive measures and comfort care.
--- NOTE | 2017-12-11 11:52 | PN- Nephrology ---
Assessment/Plan Nephrology Assessment: ALLIE: Resolving; suspect prerenal azotemia from volume depletion (poor PO, insensible losses from UTI). CKD stage 5: Due to DM/HTN; baseline creat 4, BUN 60s. She is a "Do Not Dialyze" Pruritis: Would give benadryl 25 mg IV qhs. I suspect phosphorus is likely high. hypokalemia: suspect due to poor PO and cell shift from bicarb repletoin hypernatremia: would change IVFs to D5W MRSA UTI: receiving periodic doses of IV vanco frailty, dementia, numerous acute and chronic comorbidities: Family leaning towards hospice which would be appropriate Suggestion: hospice f/up change IVFs to D5W at 75 cc/hr; if remains hypokalemic can add 20 meq KCL/liter benadryl 25 mg IV qhs for itching caution with IV vancomycin; dose by level given severe renal failure D/w family in detail Conner Villagomez MD Subjective Subjective: Remains NPO on IVFs Remains confused, non verbal was very agitated this AM and received ativan per son has been very itchy asking family to scratch her BUN/Creat partially improved making urine; urine more clear in color Review of Systems: unable to clearly obtain +PRURITIS Objective Vital Signs and I&Os Vital Signs Date Time Temp Pulse Resp B/P B/P Pulse O2 O2 Flow FiO2 Mean Ox Delivery Rate 12/11 0800 94 Room Air 12/11 0639 98.2 60 24 100/64 94 Room Air 12/11 0000 Room Air 12/10 2235 98.3 68 20 100/60 93 Room Air 12/10 1523 97.4 74 20 120/60 94 Intake & Output 12/11 1600 12/11 0400 12/10 1600 12/10 0400 12/09 1600 12/09 0400 Intake Total 600 600 960 675 800 Output Total 250 250 600 250 850 100 Balance 350 350 360 425 -50 -100 Intake, IV 600 600 960 675 800 Intake, Oral 0 0 Number 1 Bowel Movements Output, Urine 250 250 600 250 850 100 Patient 128 lb 119 lb 120 lb Weight Physical Exam: frail, NAD no JVD ctab S2 S2 soft NT no edema +stuart, yellow urine Current Medications: Current Medications Sig/Leo Start time Last Medication Dose Route Stop Time Status Admin Acetaminophen 1,000 MG ONCE ONE 12/10 1200 DC 12/10 N/A 1 UNIT IV 12/10 1214 1308 Calcitriol 0.25 MCG DAILY 12/09 899 AC PO Ceftriaxone Sodium 1,000 MG DAILY 12/09 899 DC 12/10 IV 1003 Cholecalciferol 1,000 IU DAILY 12/09 09 AC PO Citalopram 10 MG DAILY 12/09 0900 AC 12/09 Hydrobromide PO 0908 Dextrose 25 GM ONCE ONE 12/10 2115 DC 12/10 IV 12/10 2116 2121 Dextrose/Sodium 1,000 ML Q13H 12/10 1200 AC 12/11 Chloride IV 0521 Heparin Sodium 5,000 UNIT Q8 12/09 06 AC 12/11 (Porcine) SC 05 Insulin Aspart 0 TIDAC 12/09 08 AC 12/10 SC 0816 Insulin Detemir 20 UNITS BID 12/09 09 AC 12/10 SC 0816 Levothyroxine Sodium 0.05 MG DAILY AC 12/09 07 AC PO Lorazepam 0.5 MG Q6-PRN PRN 12/11 1045 AC IV Lorazepam 0.5 MG ONCE ONE 12/11 08 DC 12/11 IV 12/11 0801 0811 Morphine Sulfate 2 MG Q6P PRN 12/09 1030 AC 12/11 IV 0528 Omeprazole 40 MG DAILY AC 12/09 07 AC PO Potassium Chloride 10 MEQ Q1H 12/11 1115 AC IV 12/11 1316 Pregabalin 25 MG Q8H 12/09 0045 AC PO Sodium Bicarbonate 150 MEQ Q13H 12/10 0230 DC 12/10 Dextrose/Water 1,000 ML IV 0555 Vancomycin HCl 750 MG ONCE ONE 12/10 1400 CAN IV 12/10 1401 Vancomycin HCl 750 MG ONCE ONE 12/10 1400 DC 12/10 Sodium Chloride 250 ML IV 12/10 1459 1525 Results Pertinent Lab Results: Laboratory Tests 12/11 12/10 12/09 0922 1004 0710 Chemistry Sodium (137 - 145 mmol/L) 149 H 149 H 143 Potassium (3.5 - 5.1 mmol/L) 2.6 *L 3.1 L 4.2 Chloride (98 - 107 mmol/L) 109 H 107 106 Carbon Dioxide (22 - 30 mmol/L) 25 23 11 L Anion Gap (5 - 16) 16 18 H 26 H BUN (7 - 17 mg/dL) 119 *H 141 *H 151 *H Creatinine (0.5 - 1.0 mg/dL) 4.1 H 4.8 H 6.3 *H Estimated GFR (>60 ml/min) 11 L 9 L 6 L BUN/Creatinine Ratio (7 - 25 %) 29.0 H 29.4 H 19.0 Glucose (65 - 99 mg/dL) 152 H Calcium (8.4 - 10.2 mg/dL) 8.1 L Hematology CBC w Diff MAN DIFF ORDERED WBC (4.8 - 10.8 /CUMM) 21.5 H RBC (4.20 - 5.40 /CUMM) 4.26 Hgb (12.0 - 16.0 G/DL) 11.6 L Hct (37 - 47 %) 35.0 L MCV (81.0 - 99.0 FL) 82.2 MCH (27.0 - 31.0 PG) 27.2 MCHC (33.0 - 37.0 G/DL) 33.1 RDW (11.5 - 14.5 %) 18.0 H Plt Count (130 - 400 /CUMM) 364 MPV (7.4 - 10.4 FL) 7.5 Gran % (42.2 - 75.2 %) 91.1 H Lymphocytes % (20.5 - 51.1 %) 5.2 L Monocytes % (1.7 - 9.3 %) 3.6 Eosinophils % (0 - 5 %) 0 Basophils % (0.0 - 2.0 %) 0.1 Absolute Granulocytes (1.4 - 6.5 /CUMM) 19.6 H Absolute Lymphocytes (1.2 - 3.4 /CUMM) 1.1 L Absolute Monocytes (0.10 - 0.60 /CUMM) 0.8 H Absolute Eosinophils (0.0 - 0.7 /CUMM) 0 Absolute Basophils (0.0 - 0.2 /CUMM) 0 Platelet Estimate (ADEQUATE) VERIFIED BY SMEAR Polychromasia 1+ Anisocytosis 1+ 12/09 12/09 12/09 0600 0028 0009 Chemistry Hemoglobin A1c (4.2 - 5.8 %) 10.1 H Lactic Acid (0.7 - 2.1 mmol/L) 1.9 Phosphorus Cancelled 12/08 2056 Urines Urinalysis LIGHT H Urine Color (YEL,AMB,STR) YEL Urine Clarity (CLEAR) TURBD H Urine pH (5.0 - 8.0) 5.5 Ur Specific [place] (1.001 - 1.035) >= 1.030 Urine Protein (NEG,<30 MG/DL) 30 H Urine Ketones (NEG) NEG Urine Nitrite (NEG) POS H Urine Bilirubin (NEG) NEG Urine Urobilinogen (0.1 - 1.0 EU/dl) 0.2 Ur Leukocyte Esterase (NEG) MOD H Ur Microscopic SEDIMENT EXAMINED Urine RBC (0 - 5 /HPF) 10-15 H Urine WBC (0 - 2 /HPF) PACKD H Ur Epithelial Cells (NONE,FEW) FEW Urine Bacteria (NEG/NONE) MANY H Urine Hemoglobin (NEG) LARGE H Urine Glucose (N MG/DL) NEG 12/08 2029 Chemistry Sodium (137 - 145 mmol/L) 135 L Potassium (3.5 - 5.1 mmol/L) 4.9 Chloride (98 - 107 mmol/L) 98 Carbon Dioxide (22 - 30 mmol/L) 11 L Anion Gap (5 - 16) 26 H BUN (7 - 17 mg/dL) 155 *H Creatinine (0.5 - 1.0 mg/dL) 6.8 *H Estimated GFR (>60 ml/min) 6 L BUN/Creatinine Ratio (7 - 25 %) 22.8 Glucose (65 - 99 mg/dL) 333 H Lactic Acid (0.7 - 2.1 mmol/L) 2.7 H Calcium (8.4 - 10.2 mg/dL) 8.9 Total Bilirubin (0.2 - 1.3 mg/dL) 0.8 AST (14 - 36 U/L) 24 ALT (9 - 52 U/L) 48 Alkaline Phosphatase (<127 U/L) 234 H Troponin I (< 0.11 ng/ml) 0.02 Total Protein (6.3 - 8.2 g/dL) 8.3 H Albumin (3.5 - 5.0 g/dL) 3.2 L Globulin (1.9 - 4.2 gm/dL) 5.1 H Albumin/Globulin Ratio (1.1 - 2.2 %) 0.6 L Hematology CBC w Diff MAN DIFF ORDERED WBC (4.8 - 10.8 /CUMM) 24.7 H RBC (4.20 - 5.40 /CUMM) 4.51 Hgb (12.0 - 16.0 G/DL) 12.2 Hct (37 - 47 %) 36.6 L MCV (81.0 - 99.0 FL) 81.2 MCH (27.0 - 31.0 PG) 27.0 MCHC (33.0 - 37.0 G/DL) 33.2 RDW (11.5 - 14.5 %) 17.5 H Plt Count (130 - 400 /CUMM) 395 MPV (7.4 - 10.4 FL) 7.6 Gran % (42.2 - 75.2 %) 91.5 H Lymphocytes % (20.5 - 51.1 %) 5.2 L Monocytes % (1.7 - 9.3 %) 3.2 Eosinophils % (0 - 5 %) 0 Basophils % (0.0 - 2.0 %) 0.1 Absolute Granulocytes (1.4 - 6.5 /CUMM) 22.6 H Segmented Neutrophils (42.2 - 75.2 %) 92 H Band Neutrophils (0.0 - 5.0 %) 1 Absolute Lymphocytes (1.2 - 3.4 /CUMM) 1.3 Lymphocytes (20.5 - 51.1 %) 3 L Monocytes (1.7 - 9.3 %) 4 Absolute Monocytes (0.10 - 0.60 /CUMM) 0.8 H Absolute Eosinophils (0.0 - 0.7 /CUMM) 0 Absolute Basophils (0.0 - 0.2 /CUMM) 0 Platelet Estimate (ADEQUATE) VERIFIED BY SMEAR Anisocytosis 1+ Other Body Source Fld Total RBCs Counted (%) 100 Toxicology Acetone Level (NEGATIVE) NEGATIVE
[2017-12-11 14:25] VITALS: BP 105/60
[2017-12-11 22:12] VITALS: BP 104/60
[2017-12-12 06:20] VITALS: BP 108/60
--- NOTE | 2017-12-12 08:14 | PN- Housestaff ---
Corey Amaya 12/12/17812: Subjective Follow-up For: Acute kidney injury in setting of CKD Subjective: Patient's vancomycin level came back subtherapeutic last night, thus patient was dosed with vancomycin 750 mg. Patient's levels will be drawn tonight as well. Patient was examined at bedside, is less agitated than yesterday. Patient is demented at baseline, did not offer any complaints. Patient's son states that the patient is doing about the same. Patient's son states that the family will be here tonight, and the discussion about comfort care versus hospice will continue. Review of Systems Constitutional: Reports: see HPI. Objective Last 24 Hrs of Vital Signs/I&O Vital Signs Date Time Temp Pulse Resp B/P B/P Pulse O2 O2 Flow FiO2 Mean Ox Delivery Rate 12/13 799 Room Air 12/12 0620 97.1 65 20 108/60 94 Room Air 12/12 0000 Room Air 12/11 2212 96.3 67 22 104/60 95 Room Air 12/11 1425 97.0 82 18 105/60 95 Room Air Intake & Output 12/12 1600 12/12 0800 12/12 0000 Intake Total 600 600 Output Total 350 650 Balance 250 -50 Intake, IV 600 600 Intake, Oral 0 0 Number 0 Bowel Movements Output, Urine 350 650 Physical Exam General Appearance: Alert, No Acute Distress Skin: No Breakdown Skin Temp/Moisture Exam: Warm/Dry Cardiovascular: Regular Rate, Normal S1, Normal S2 Lungs: Clear to Auscultation, Normal Air Movement Abdomen: Soft, No Tenderness Extremities: No Edema Current Medications: Current Medications Sig/Leo Start time Last Medication Dose Route Stop Time Status Admin Calcitriol 0.25 MCG DAILY 12/09 899 AC PO Cholecalciferol 1,000 IU DAILY 12/09 899 AC PO Citalopram 10 MG DAILY 12/09 899 AC 12/09 Hydrobromide PO 0908 Dextrose/Water 1,000 ML Q13H 12/11 1245 AC 12/12 IV 08 Diphenhydramine HCl 25 MG AT BEDTIME 12/11 2100 AC 12/11 IV 203 Heparin Sodium 5,000 UNIT Q8 12/09 06 AC 12/12 (Porcine) SC 06 Insulin Aspart 0 TIDAC 12/10 799 DC 12/10 SC 0816 Insulin Detemir 20 UNITS BID 12/09 899 AC 12/10 SC 0816 Insulin Human Regular 2 UNITS .STK-MED ONE 12/12 0022 DC IV 12/12 0023 Insulin Human Regular 0 Q6 12/11 1800 AC 12/12 SC 0617 Levothyroxine Sodium 0.05 MG DAILY AC 12/09 0700 AC PO Lorazepam 2 MG .STK-MED ONE 12/11 1520 DC IV 12/11 1521 Lorazepam 0.5 MG Q6-PRN PRN 12/11 1045 AC 12/12 IV 0027 Morphine Sulfate 2 MG Q6P PRN 12/09 1030 AC 12/12 IV 0027 Omeprazole 40 MG DAILY AC 12/09 0700 AC 12/12 PO 0618 Potassium Chloride 10 MEQ Q1H 12/11 1115 DC 12/11 IV 12/11 1316 1616 Pregabalin 25 MG Q8H 12/09 0045 AC PO Vancomycin HCl 750 MG ONCE ONE 12/11 1915 DC 12/11 Sodium Chloride 250 ML IV 12/11 Last 24 Hrs of Lab/Mario Results Last 24 Hrs of Labs/Mics: Laboratory Tests 12/12/17 0805: Anion Gap 11, Estimated GFR 15 L, BUN/Creatinine Ratio 30.7 H 12/11/17 1635: Random Vancomycin 11.3 Assessment/Plan Assessment: Ms Zamarripa is a 77-year-old woman who is primarily syriac speaking w/ a past medical history of CHF, hyperlipidemia, hypokalemia, Alzheimer's dementia, end-stage renal disease, diabetes, hypothyroidism, multiple recent falls was brought to the ER with a chief concern of altered mental status likely secondary to ESRD resulting from decreased po intake. Being treated for ALLIE. Problem list: #1 acute on chronic kidney disease #2 UTI - patient's culture has grown MRSA, blood cultures growing gram positive cocci in clusters #3 metabolic encephalopathy #4 type 2 diabetes #5 Alzheimer's dementia #6 history of CHF #7 history of end-stage renal disease #8 abnormal urinalysis #9 leukocytosis with granulocytosis. #10 hypokalemia Plan: -Patient's family refused further care such as hemodialysis at this time. Potential switch to comfort care, patient's extended family is flying in tomorrow and will discuss.. -Nephrology evaluation appreciated. Renal ultrasound shows no hydronephrosis or obstructive uropathy. Left renal cyst. We will switch fluids to D5W at 75 cc/ h. Added potassium as she was also hypokalemic 2.9 today. Follow-up [facility]. Benadryl 25 mg IV has controlled patient pruritus. -Insulin adjusted secondary to patient's poor p.o. intake. Family does not want Accu-Cheks. -Cultures grown MRSA. Patient was switched to vancomycin. Patient's vancomycin level last night came back subtherapeutic. She was given 750 mg again last night, and we will follow up the vancomycin level tonight. -Continue calcitriol, given chronic kidney disease. -Continue levothyroxine. -Creatinine 3.0 today. BUN continues to trend downwards from 119 yesterday to 92 today. Patient seems to be responding well to fluids. -A1c was 10.1. -Pain controlpatient agitation has subsided, controlled well with Ativan every 6 as needed. will discuss whether or not to switch to comfort measures versus hospice care. We will continue to monitor, we have switched off Accu-Cheks for now. We will continue treatment, including lab draws, until patient's family determines otherwise. Checklist: #1 DVT prophylaxis-subcutaneous heparin #2 consults-nephrology appreciated. #3 possible hospice evaluation. #4 GI prophylaxis-Protonix. Problem List: 1. Acute on chronic renal failure Pain Ratin Pain Location: Unable to localize Pain Goal: Pain 4 or less Pain Plan: Morphine, Ativan as needed. Tomorrow's Labs & Rationales: DEANNE GeorgeИван latham 12/12/17 1119: Attending MD Review Statement Attending Statement Attending MD Statement: examined this patient, discuss w/resident/PA/CRUST SORTER, agreed w/resident/PA/CRUST SORTER, discussed with family, reviewed EMR data (avail), discussed with nursing, discussed with case mgmt, reviewed images, amended to note Attending Assessment/Plan: Patient sleeping in her bed. Patient labs show mild improvement in creatinine. She has metabolic acidosis from acute on chronic renal failure. She dose have encephalopathy from high BUN. UTI is being treated with iv abx. Nephrology appreciated. Do not dilayse status. Follow nephrology recommendations. She has poor intake and not able to follow commands to eat. Patient requiring IVF for acute kidney injury. Monitor creatinine and BUN. DNR/ DNI. Follow up hospice evalaution if family wishes to discontinue IVF and inpatient vs home hospcie. Awaiting family member (family still wants blood draws and IVF). Family inclined towards no aggressive measures and comfort care.
--- NOTE | 2017-12-12 14:02 | PN- Nephrology ---
Assessment/Plan Nephrology Assessment: ALLIE: Resolving; suspect prerenal azotemia from volume depletion (poor PO, insensible losses from UTI). CKD stage 5: Due to DM/HTN; baseline creat 4, BUN 60s. She is a "Do Not Dialyze" Pruritis: Would give benadryl 25 mg IV qhs. I suspect phosphorus is likely high. hypokalemia: suspect due to poor PO and cell shift from bicarb repletion MRSA UTI: receiving periodic doses of IV vanco frailty, dementia, numerous acute and chronic comorbidities: Family leaning towards hospice which would be appropriate Suggestion: hospice f/up despite improved ALLIE, she is not stable for discharge as not able to take PO & would be readmitted rapidly with volume depletion and ALLIE change IVFs to D5 1/2 NS + 20 meq/L KCL at 75 cc/hr if bicarb drops <16 then change to D5W +75 meq/L sodium bicarb at 75 cc/hr benadryl 25 mg IV qhs for itching caution with IV vancomycin; dose by level given severe renal failure Conner Villagomez MD Subjective Subjective: Remains lethargic, confused, nonverbal remains NPO on IVFs BUN/creat improved but no improvement in mentation Review of Systems: UNABLE TO OBTAIN DUE TO DEMENTIA Objective Vital Signs and I&Os Vital Signs Date Time Temp Pulse Resp B/P B/P Pulse O2 O2 Flow FiO2 Mean Ox Delivery Rate 12/12 0800 Room Air 12/12 0620 97.1 65 20 108/60 94 Room Air 12/12 0000 Room Air 12/11 2212 96.3 67 22 104/60 95 Room Air 12/11 1425 97.0 82 18 105/60 95 Room Air Intake & Output 12/12 1600 12/12 0400 12/11 1600 12/11 0400 12/10 1600 12/10 0400 Intake Total 202 820 7210 600 960 675 Output Total 350 650 250 250 600 600 Balance 250 -50 950 350 360 75 Intake, IV 577 878 0677 600 960 675 Intake, Oral 0 0 0 0 Number 0 1 Bowel Movements Output, Urine 350 650 250 250 600 600 Patient 118 lb Weight Physical Exam: frail, NAD no JVD ctab S2 S2 soft NT no edema +stuart, yellow urine Current Medications: Current Medications Sig/Leo Start time Last Medication Dose Route Stop Time Status Admin Calcitriol 0.25 MCG DAILY 12/09 899 AC PO Cholecalciferol 1,000 IU DAILY 12/09 09 AC PO Citalopram 10 MG DAILY 12/09 09 AC 12/09 Hydrobromide PO 0908 Dextrose/Water 1,000 ML Q13H 12/11 1245 AC 12/12 IV 0812 Diphenhydramine HCl 25 MG AT BEDTIME 12/11 2100 AC 12/11 IV 203 Heparin Sodium 5,000 UNIT Q8 12/09 06 AC 12/12 (Porcine) SC 06 Insulin Aspart 0 TIDAC 12/09 08 DC 12/10 SC 0816 Insulin Detemir 20 UNITS BID 12/09 09 AC 12/10 SC 08 Insulin Human Regular 2 UNITS .STK-MED ONE 12/12 0022 DC IV 12/12 0023 Insulin Human Regular 0 Q6 12/11 1800 AC 12/12 SC 0617 Levothyroxine Sodium 0.05 MG DAILY AC 12/09 07 AC PO Lorazepam 2 MG .STK-MED ONE 12/11 1520 DC IV 12/11 1521 Lorazepam 0.5 MG Q6-PRN PRN 12/11 1045 AC 12/12 IV 0027 Morphine Sulfate 2 MG Q6P PRN 12/09 1030 AC 12/12 IV 0027 Omeprazole 40 MG DAILY AC 12/09 07 AC 12/12 PO 0618 Pregabalin 25 MG Q8H 12/09 0045 AC PO Sodium Chloride 500 ML BOLUS ONE 12/12 1330 AC IV 12/12 1429 Vancomycin HCl 750 MG ONCE ONE 12/11 191 DC 12/11 Sodium Chloride 250 ML IV 12/11 Results Pertinent Lab Results: Laboratory Tests 12/12 12/11 12/11 12/10 0805 1635 0922 1004 Chemistry Sodium (137 - 145 mmol/L) 143 149 H 149 H Potassium (3.5 - 5.1 mmol/L) 2.9 *L 2.6 *L 3.1 L Chloride (98 - 107 mmol/L) 114 H 109 H 107 Carbon Dioxide (22 - 30 mmol/L) 18 L 25 23 Anion Gap (5 - 16) 11 16 18 H BUN (7 - 17 mg/dL) 92 H 119 *H 141 *H Creatinine (0.5 - 1.0 mg/dL) 3.0 H 4.1 H 4.8 H Estimated GFR (>60 ml/min) 15 L 11 L 9 L BUN/Creatinine Ratio (7 - 25 %) 30.7 H 29.0 H 29.4 H Glucose (65 - 99 mg/dL) 152 H Calcium (8.4 - 10.2 mg/dL) 8.1 L Toxicology Random Vancomycin (ug/ml) 11.3
[2017-12-12 14:18] VITALS: BP 100/50
[2017-12-12 22:22] VITALS: BP 122/86
[2017-12-12 22:25] VITALS: BP 100/50
--- NOTE | 2017-12-13 05:52 | PN- Housestaff ---
See Addendum Subjective Follow-up For: ALLIE ON CKD Subjective: Pt examined at bedside. Son also at bedside. Son states his mother had no episodes of agitation. Son states that his mother looks more comfortable. Son denied any acute events overnight. Family has flown in, will meet with patient today to discuss further care per son. Review of Systems Constitutional: Reports: see HPI. Objective Last 24 Hrs of Vital Signs/I&O Vital Signs Date Time Temp Pulse Resp B/P B/P Pulse O2 O2 Flow FiO2 Mean Ox Delivery Rate 12/13 637 97.7 84 20 108/50 97 Room Air 12/12 2225 97.8 66 20 100/50 94 07/ 1600 Room Air 12/12 1418 96.8 120 18 100/50 90 Room Air Intake & Output 12/13 1600 12/13 0800 12/13 0000 Intake Total 600 600 Output Total 300 400 Balance 300 200 Intake, IV 600 600 Output, Urine 300 400 Physical Exam General Appearance: Alert, No Acute Distress Skin: No Breakdown Skin Temp/Moisture Exam: Warm/Dry Cardiovascular: Regular Rate, Normal S1, Normal S2 Lungs: Clear to Auscultation, Normal Air Movement Abdomen: Soft, No Tenderness Extremities: No Edema Current Medications: Current Medications Sig/Leo Start time Last Medication Dose Route Stop Time Status Admin Calcitriol 0.25 MCG DAILY 12/09 899 AC PO Cholecalciferol 1,000 IU DAILY 12/09 09 AC PO Citalopram 10 MG DAILY 12/09 09 AC 12/09 Hydrobromide PO 0908 Dextrose/Sodium 1,000 ML Q13H 12/12 1430 CAN Chloride IV Dextrose/Water 1,000 ML Q13H 12/11 1245 DC 12/12 IV 0812 Diphenhydramine HCl 25 MG AT BEDTIME 12/11 2100 AC 12/12 IV 2110 Heparin Sodium 5,000 UNIT Q8 12/09 0600 AC 12/13 (Porcine) SC 0530 Insulin Detemir 20 UNITS BID 12/09 09 AC 12/10 SC 0816 Insulin Human Regular 4 UNITS .STK-MED ONE 12/12 1352 DC IV 12/12 1353 Insulin Human Regular 1 UNITS .STK-MED ONE 12/12 1352 DC IV 12/12 1353 Insulin Human Regular 0 Q6 12/11 1800 DC 12/12 SC 1737 Levothyroxine Sodium 0.05 MG DAILY AC 12/09 0700 AC PO Lorazepam 0.5 MG Q6-PRN PRN 12/11 1045 AC 12/13 IV 0531 Morphine Sulfate 2 MG Q6P PRN 12/09 1030 AC 12/13 IV 0056 Omeprazole 40 MG DAILY AC 12/09 0700 AC 12/12 PO 0618 Potassium Chloride 20 MEQ Q13H 12/12 1445 AC 12/13 Dextrose/Sodium 1,000 ML IV 0747 Chloride Potassium Chloride 20 MEQ 12/12 1430 CAN IV Pregabalin 25 MG Q8H 12/09 0045 AC PO Sodium Chloride 500 ML BOLUS ONE 12/12 1330 DC IV 12/12 1429 Last 24 Hrs of Lab/Mario Results Last 24 Hrs of Labs/Mics: Laboratory Tests 12/13/17 0638: Sodium Pending, Potassium Pending, Chloride Pending, Carbon Dioxide Pending, Anion Gap Pending, BUN Pending, Creatinine Pending, BUN/Creatinine Ratio Pending 12/12/17 2120: Random Vancomycin 18.6 Assessment/Plan Assessment: Ms Zamarripa is a 77-year-old woman who is primarily greek speaking w/ a past medical history of CHF, hyperlipidemia, hypokalemia, Alzheimer's dementia, end-stage renal disease, diabetes, hypothyroidism, multiple recent falls was brought to the ER with a chief concern of altered mental status likely secondary to ESRD resulting from decreased po intake. Being treated for ALLIE and MRSA UTI. Problem list: #1 acute on chronic kidney disease #2 UTI - patient's culture has grown MRSA, blood cultures growing gram positive cocci in clusters #3 metabolic encephalopathy #4 type 2 diabetes #5 Alzheimer's dementia #6 history of CHF #7 history of end-stage renal disease #8 abnormal urinalysis #9 leukocytosis with granulocytosis. #10 hypokalemia Plan: -Patient's family refused further care such as hemodialysis at this time. Potential switch to comfort care, patient's extended family is flying in tomorrow and will discuss.. -Nephrology evaluation appreciated. Renal ultrasound shows no hydronephrosis or obstructive uropathy. Left renal cyst. We will switch fluids to D5W at 75 cc/ h. Added potassium as she was also hypokalemic 2.9 today. Follow-up BEP. Benadryl 25 mg IV has controlled patient pruritus. -Insulin adjusted secondary to patient's poor p.o. intake. Family does not want Accu-Cheks. -Cultures grown MRSA. Patient was switched to vancomycin. Patient's vancomycin level last night came back subtherapeutic. She was given 750 mg again last night, and we will follow up the vancomycin level tonight. -Continue calcitriol, given chronic kidney disease. -Continue levothyroxine. -Creatinine pending. BUN pending, was 92 yesterday. Patient seems to be responding well to fluids. -A1c was 10.1. -Pain controlpatient agitation has subsided, controlled well with Ativan every 6 as needed. will discuss whether or not to switch to comfort measures versus hospice care today. We will continue to monitor, we have switched off Accu-Cheks. We will continue treatment, including lab draws, until patient's family determines otherwise. Checklist: #1 DVT prophylaxis-subcutaneous heparin #2 consults-nephrology appreciated. #3 possible hospice evaluation. #4 GI prophylaxis-Protonix. Problem List: 1. Acute on chronic renal failure Pain Ratin Pain Location: na Pain Goal: Remain pain free Pain Plan: ativan, morphine PRN Tomorrow's Labs & Rationales: pending pts family decision on comfort vs hospice care
[2017-12-13 06:38] VITALS: BP 108/50
--- NOTE | 2017-12-13 13:30 | PN- Nephrology ---
Assessment/Plan Nephrology Assessment: ALLIE: Resolved prerenal azotemia from volume depletion (poor PO, insensible losses from UTI). CKD stage 5: Due to DM/HTN; baseline creat 4, BUN 60s. She is a "Do Not Dialyze" Pruritis:continue benadryl 25 mg IV qhs. I suspect phosphorus is likely high. hypokalemia: suspect due to poor PO and cell shift from bicarb repletion MRSA UTI & G+C [employer] INST[employer]ER bacteremia: receiving periodic doses of IV vanco. Check vanco level today frailty, dementia, numerous acute and chronic comorbidities: Family leaning towards hospice which would be appropriate Suggestion: check vanco level-> if <15 consider dose of IV vanco f/up final blood culture continue D5 1/2NS +20 meq/L KCL at 75 cc/hr hospice f/up dialysis not indicated & "Do Not Dialyze" Subjective Subjective: remains encephalopathic, NPO, nonverbal Review of Systems: unable to obtain Objective Vital Signs and I&Os Vital Signs Date Time Temp Pulse Resp B/P B/P Pulse O2 O2 Flow FiO2 Mean Ox Delivery Rate 12/13 0638 97.7 84 20 108/50 97 Room Air 12/12 2225 97.8 66 20 100/50 94 /06 1600 Room Air 12/12 1418 96.8 120 18 100/50 90 Room Air Intake & Output 12/13 1600 12/13 0400 12/12 1600 12/12 0400 12/11 1600 12/11 0400 Intake Total 044 483 4296 600 1200 600 Output Total 300 400 725 650 250 250 Balance 300 200 475 -50 950 350 Intake, IV 581 065 2830 600 1200 600 Intake, Oral 0 0 0 0 Number 0 Bowel Movements Output, Urine 300 400 725 650 250 250 Patient 118 lb Weight Physical Exam: frail NAD poor muscle mass soft NT no edema S1 S2 Current Medications: Current Medications Sig/Leo Start time Last Medication Dose Route Stop Time Status Admin Calcitriol 0.25 MCG DAILY 12/09 899 AC PO Cholecalciferol 1,000 IU DAILY 12/09 899 AC PO Citalopram 10 MG DAILY 12/09 899 AC 12/09 Hydrobromide PO 0908 Dextrose/Sodium 1,000 ML Q13H 12/12 1430 CAN Chloride IV Dextrose/Water 1,000 ML Q13H 07/05 1245 DC 12/12 IV 0812 Diphenhydramine HCl 25 MG AT BEDTIME 12/11 2100 AC 12/12 IV 2110 Heparin Sodium 5,000 UNIT Q8 12/09 0600 AC 12/13 (Porcine) SC 0530 Insulin Detemir 20 UNITS BID 12/09 0900 AC 12/10 SC 0816 Insulin Human Regular 4 UNITS .STK-MED ONE 12/12 1352 DC IV 12/12 1353 Insulin Human Regular 1 UNITS .STK-MED ONE 12/12 1352 DC IV 12/12 1353 Insulin Human Regular 0 Q6 12/11 1800 DC 12/12 SC 1737 Levothyroxine Sodium 0.05 MG DAILY AC 12/09 07 AC PO Lorazepam 0.5 MG Q6-PRN PRN 12/11 1045 AC 12/13 IV 1109 Morphine Sulfate 2 MG Q6P PRN 12/09 1030 AC 12/13 IV 1109 Omeprazole 40 MG DAILY AC 12/09 0700 AC 12/12 PO 0618 Potassium Chloride 20 MEQ Q13H 12/12 1445 AC 12/13 Dextrose/Sodium 1,000 ML IV 0747 Chloride Potassium Chloride 20 MEQ 12/12 1430 CAN IV Pregabalin 25 MG Q8H 12/09 0045 AC PO Sodium Chloride 500 ML BOLUS ONE 12/12 1330 DC IV 12/12 1429 Results Pertinent Lab Results: Laboratory Tests 12/13 12/12 12/12 12/11 12/11 0638 2120 0805 1635 0922 Chemistry Sodium (137 - 145 mmol/L) 146 H 143 149 H Potassium (3.5 - 5.1 mmol/L) 3.7 2.9 *L 2.6 *L Chloride (98 - 107 mmol/L) 112 H 114 H 109 H Carbon Dioxide (22 - 30 mmol/L) 23 18 L 25 Anion Gap (5 - 16) 11 11 16 BUN (7 - 17 mg/dL) 80 H 92 H 119 *H Creatinine (0.5 - 1.0 mg/dL) 3.5 H 3.0 H 4.1 H Estimated GFR (>60 ml/min) 13 L 15 L 11 L BUN/Creatinine Ratio (7 - 25 %) 22.9 30.7 H 29.0 H Toxicology Random Vancomycin (ug/ml) 18.6 11.3
[2017-12-13 15:05] VITALS: BP 100/62
[2017-12-13 22:08] VITALS: BP 122/56
[2017-12-14 06:32] VITALS: BP 118/56
--- NOTE | 2017-12-14 08:27 | PN- Housestaff ---
See Addendum Subjective Follow-up For: Acute on chronic kidney disease Subjective: Patient seen and examined at bedside. Sons also at bedside. Son states that mother has not woken up and spoken with them since yesterday morning, but the mother looks more comfortable. Son denies any acute events overnight. Family is flown in, will meet with patient later to discuss further care. Review of Systems Constitutional: Reports: no symptoms. Objective Last 24 Hrs of Vital Signs/I&O Vital Signs Date Time Temp Pulse Resp B/P B/P Pulse O2 O2 Flow FiO2 Mean Ox Delivery Rate 12/14 0532 97.9 73 20 118/56 94 Room Air 12/13 2208 96.6 87 22 122/56 96 Room Air 12/13 1505 98.7 82 18 100/62 96 Room Air Intake & Output 12/14 1600 12/14 0800 12/14 0000 Intake Total 600 300 Output Total 250 250 Balance 350 50 Intake, IV 600 300 Number 1 Bowel Movements Output, Urine 250 250 Physical Exam General Appearance: No Acute Distress Skin: No Breakdown Skin Temp/Moisture Exam: Warm/Dry Cardiovascular: Regular Rate, Normal S1, Normal S2, No Murmurs Lungs: Clear to Auscultation, Normal Air Movement Abdomen: Soft, No Tenderness Extremities: No Edema Assessment/Plan Assessment: Ms Zamarripa is a 77-year-old woman who is primarily romanian speaking w/ a past medical history of CHF, hyperlipidemia, hypokalemia, Alzheimer's dementia, end-stage renal disease, diabetes, hypothyroidism, multiple recent falls was brought to the ER with a chief concern of altered mental status likely secondary to ESRD resulting from decreased po intake. Being treated for ALLIE and MRSA UTI. Family discussing and considering comfort care. Problem list: Plan: Family discussing comfort care obstructive uropathy. Left renal cyst. We will switch fluids to D5W at 75 cc/ h. Added potassium as she was also hypokalemic 2.9 today. Follow-up BEP. Benadryl 25 mg IV has controlled patient pruritus. Cheks -Cultures growing MRSA. He should switch to vancomycin. If vancomycin level less than 15, consider dose of IV vancomycin continue D5 1/2NS +20 meq/L KCL at 75 cc/hr DVT prophylaxis: Subcu heparin Patient is DNR/DNI Problem List: 1. Acute on chronic renal failure Pain Ratin Pain Location: NA Pain Goal: Remain pain free Pain Plan: Ativan, morphine as needed Tomorrow's Labs & Rationales: Pending family decision on comfort versus hospice
[2017-12-14 14:25] VITALS: BP 80/60
[2017-12-14 19:16] VITALS: BP 90/40
[2017-12-14 22:14] VITALS: BP 90/50
[2017-12-15 06:36] VITALS: BP 94/56
--- NOTE | 2017-12-15 07:34 | PN- Housestaff ---
Corey Amaya 12/15/17 0734: Subjective Follow-up For: ALLIE on CKD Subjective: Overnight, patient's blood pressure dropped into the 80s. Patient's fluids were increased to 125 cc/h. Patient is demented at baseline, denied complaints. Sons are at bedside, state that she is not in any acute distress Review of Systems Constitutional: Reports: see HPI. Objective Last 24 Hrs of Vital Signs/I&O Vital Signs Date Time Temp Pulse Resp B/P B/P Pulse O2 O2 Flow FiO2 Mean Ox Delivery Rate 12/15 0536 97.8 70 20 94/56 95 Room Air 12/14 2214 97.6 78 22 90/50 98 Room Air 12/14 1916 97.7 74 22 90/40 94 /08 1425 98.2 80 15 80/60 96 Room Air Intake & Output 12/15 1600 12/15 0800 12/15 0000 Intake Total 1000 375 Output Total 350 425 Balance 650 -50 Intake, IV 1000 375 Number 1 1 Bowel Movements Output, Urine 350 425 Physical Exam General Appearance: Alert, Cooperative, No Acute Distress Skin Temp/Moisture Exam: Warm/Dry Cardiovascular: Regular Rate, Normal S1, Normal S2 Lungs: Clear to Auscultation, Normal Air Movement Abdomen: Soft, No Tenderness Extremities: mild hand edema Current Medications: Current Medications Sig/Leo Start time Last Medication Dose Route Stop Time Status Admin Acetaminophen 650 MG Q4P PRN 12/15 1330 UNVr WV Artificial Tears 2 GTT Q2P PRN 12/15 1330 UNVr OU Bisacodyl 10 MG DAILY NEEDED PRN 12/15 1330 UNVr WV Calcitriol 0.25 MCG DAILY 12/09 899 DCD PO Cholecalciferol 1,000 IU DAILY 12/09 899 DCD PO Citalopram 10 MG DAILY 12/09 899 DCD 12/09 Hydrobromide PO 0908 Diphenhydramine HCl 25 MG AT BEDTIME 12/11 2100 DCD 12/14 IV 2128 Glycerin 2 SPRAY Q4P PRN 12/15 1330 UNVr PO Glycerin/Mineral Oil 1 PETR Q8P PRN 12/15 1330 UNVr TOP Glycopyrrolate 400 MCG Q4P PRN 12/15 1330 UNVr SC Heparin Sodium 5,000 UNIT Q8 12/09 06 DCD 12/15 (Porcine) SC 0513 Insulin Detemir 20 UNITS BID 12/09 0900 DCD 12/15 SC 0837 Levothyroxine Sodium 0.05 MG DAILY AC 12/09 0700 DCD PO Lorazepam 0.5 MG Q4 PRN 12/15 1330 UNVr IV Lorazepam 0.5 MG Q6-PRN PRN 12/11 1045 DCD 12/14 IV 1201 Morphine Sulfate 2 MG Q4 12/15 1400 UNVr IV Morphine Sulfate 0 Q2P PRN 12/15 1330 UNVr IV Morphine Sulfate 2 MG Q6P PRN 12/09 1030 DCD 12/15 IV 1231 Omeprazole 40 MG DAILY AC 12/09 0700 DCD 12/12 PO 0618 Potassium Chloride 20 MEQ Q8H 12/14 1600 DCD 12/15 Dextrose/Sodium 1,000 ML IV 0837 Chloride Potassium Chloride 20 MEQ Q13H 12/12 1445 DC 12/14 Dextrose/Sodium 1,000 ML IV 1413 Chloride Pregabalin 25 MG Q8H 12/09 0045 DCD PO Scopolamine HBr 1 PAT Q72 PRN 12/15 1330 UNVr TOP Assessment/Plan Assessment: Ms Zamarripa is a 77-year-old woman who is primarily portuguese speaking w/ a past medical history of CHF, hyperlipidemia, hypokalemia, Alzheimer's dementia, end-stage renal disease, diabetes, hypothyroidism, multiple recent falls was brought to the ER with a chief concern of altered mental status likely secondary to ESRD resulting from decreased po intake. Being treated for ALLIE and MRSA UTI. Problem list: #1 acute on chronic kidney disease #2 UTI - patient's culture has grown MRSA, blood cultures growing gram positive cocci in clusters #3 metabolic encephalopathy #4 type 2 diabetes #5 Alzheimer's dementia #6 history of CHF #7 history of end-stage renal disease #8 abnormal urinalysis #9 leukocytosis with granulocytosis. #10 hypokalemia Plan: -Patient's family refused further care such as hemodialysis at this time. Patient family switch to comfort care today. -Nephrology evaluation appreciated. Renal ultrasound shows no hydronephrosis or obstructive uropathy. Benadryl was ordered to control pruritus. -Insulin adjusted secondary to patient's poor p.o. intake. Family does not want Accu-Cheks. -Cultures grown MRSA. Patient has completed course of vancomycin. -Continue calcitriol, given chronic kidney disease. -Continue levothyroxine. -A1c was 10.1. -Pain controlpatient agitation has subsided, controlled well with Ativan every 6 as needed. will discuss whether or not to switch to comfort measures versus hospice care today. Checklist: #1 DVT prophylaxis-subcutaneous heparin #2 consults-nephrology appreciated. #3 possible hospice evaluation. #4 GI prophylaxis-Protonix. Problem List: 1. UTI (urinary tract infection) Pain Ratin Pain Location: NA Pain Goal: Remain pain free Pain Plan: As needed Tomorrow's Labs & Rationales: None Иван Gillis 12/15/17 1349: Attending MD Review Statement Attending Statement Attending MD Statement: examined this patient, discuss w/resident/PA/CATERING CHEF, agreed w/resident/PA/CATERING CHEF, discussed with family, reviewed EMR data (avail), discussed with nursing, discussed with case mgmt, reviewed images, amended to note Attending Assessment/Plan: Patient sleeping in her bed. She dose have encephalopathy from high BUN. Nephrology appreciated. Do not dilayse status. She has poor intake and not able to follow commands to eat. Discontinue IVF and transfer to inpatient hospice. Family decided towards no aggressive measures and comfort care.
--- NOTE | 2017-12-15 15:58 | Discharge Summary ---
See Addendum Visit Information Visit Dates Admission Date: 12/11/17 Discharge Date: 12/15/17 to hospice Hospital Course Course Attending Physician: Elis WHEELER,Иван Primary Care Physician: Gloria WHEELER,[facility] Course: Mr Zamarripa is a 77-year-old woman who is primarily pashto speaking w/ a past medical history of CHF, hyperlipidemia, hypokalemia, Alzheimer's dementia, end-stage renal disease, diabetes, hypothyroidism, multiple recent falls was brought to the ER with a chief concern of altered mental status likely secondary to ESRD resulting from decreased po intake. Vitals-Temperature 98.8, pulse rate 84, respiration 18, blood pressure 113/53, pulse ox 97% on room air. Pertinent lab findings- WBC 24.7 (91.5 granulocytes), hemoglobin 12.2, platelet count 395. Sodium 135, potassium 4.9, chloride 98, bicarbonate 11, anion gap 26 (anion gap metabolic acidosis from renal injury). BUN 155 (last 54-10/17/2017), creatinine 6.8 Glucose 333, acetone negative. Lactic acid 2.7-->1.9 Calcium 8.9, albumin 3.2 AST 24, ALT 48, alkaline phosphatase 234 (likely metabolic osteodystrophy) Troponin 0.02, Urinalysis revealed leukocyte esterase, nitrites positive, pyurea. Echocardiogram-July 2016 Normal size left ventricle. Left ventricular ejection fraction is estimated at >60%. Mild mitral regurgitation. Mild to moderate aortic regurgitation. Mild aortic stenosis. Mild tricuspid regurgitation. No evidence of pulmonary hypertension. She was admitted to general medicine floors, nephrology was consulted, family refused hemodialysis and further invasive measures. She was given IV hydration, started on ceftriaxone. Her urine culture grew MRSA, and she was switched to vancomycin. Blood cultures also grew E. coli. She was renally dosed with vancomycin, pain was controlled with morphine and Ativan. Had several episodes of hypokalemia, and her potassium was repleted. Multiple conversations were had with the family regarding comfort measures, and once patient's family had flown in from the [facility], decision was made that patient would to be switched to comfort measures only. Patient's family's wishes were respected, and IV fluids, antibiotics, lab draws were all discontinued. Patient was referred and discharged to inpatient hospice. Allergies: Coded Allergies: NO KNOWN ALLERGIES (08/01/14) Disposition Summary Disposition Principal Diagnosis: MRSA UTI Additional Diagnosis: End-stage renal disease Discharge Disposition: hospice - medical facilit Discharge Instructions General Discharge Information Code Status: Comfort Care Only Patient's Diet: As tolerated Patient's Activity: As tolerated Follow-Up Instructions/Appts: Please have close correspondence with your hospice nurse Copies To: Gloria WHEELER,Constanza Castillo
== END 2017-12-15 13:33 | disposition hospice, home (50) | DRG 469 ==
LOC: ERH 19:53 → ERHI 22:29 → 2NA 22:29 → ENRESERV 22:56 → 2NA 12-09 00:40
PROVIDERS: Emergency Medicine; Internal Medicine Endocrinology, Diabetes & Metabolism
DX: N17.9 Acute kidney failure, unspecified (principal); I13.2 Hypertensive heart and chronic kidney disease with heart failure and with stage 5 chronic kidney disease, or end stage renal disease; E11.22 Type 2 diabetes mellitus with diabetic chronic kidney disease; E11.65 Type 2 diabetes mellitus with hyperglycemia; N18.5 Chronic kidney disease, stage 5; I50.9 Heart failure, unspecified; Z79.4 Long term (current) use of insulin; Z79.84 Long term (current) use of oral hypoglycemic drugs; N39.0 Urinary tract infection, site not specified; B95.62 Methicillin resistant Staphylococcus aureus infection as the cause of diseases classified elsewhere; G30.9 Alzheimer's disease, unspecified; F02.80 Dementia in other diseases classified elsewhere, unspecified severity, without behavioral disturbance, psychotic disturbance, mood disturbance, and anxiety; F05 Delirium due to known physiological condition; G93.41 Metabolic encephalopathy; E87.0 Hyperosmolality and hypernatremia; E86.0 Dehydration; E87.6 Hypokalemia; D72.829 Elevated white blood cell count, unspecified
CPT/HCPCS: 2NASP; 87184; 36415; 36592; 71045; 76775; 81001; 82436; 87040; 87086; 87147; 93005; 93010; 99291; J0131; J0696; J1200; J1644; J1815; J2060; J3370; J7040; J7042; J7060

== ENCOUNTER 2017-12-15 13:40 | Inpatient (IN) | payer OTHER ==
--- NOTE | 2017-12-15 15:12 | History & Physical ---
General Information and HPI Chief Complaint: ENCEPHALOPATHY Source of Information: family, old records, EMS Exam Limitations: unable to give history, patient's age, not alert/orientated History of Present Illness: Ms Zamarripa is a 77-year-old woman who is primarily lao speaking w/ a past medical history of CHF, hyperlipidemia, hypokalemia, Alzheimer's dementia, end-stage renal disease, diabetes, hypothyroidism, multiple recent falls was brought to the ER with a chief concern of altered mental status likely secondary to ESRD resulting from decreased po intake. Patient Being treated for ALLIE and MRSA UTI. Her clinical conditon not improved despite intravenosu fluids. Nephrology consulted and recommend hospice evalauiton as not candidate for dialysis as per family/nephrology. Do not dialyse status. Patient care is transitioned to inpatient hospice. Allergies/Medications Allergies: Coded Allergies: NO KNOWN ALLERGIES (08/01/14) Past History Medical History: CHRONIC KIDNEY DISEASE Medical History Neurological: Alzheimer's disease, dementia EENT: NONE Cardiovascular: CHF, hyperlipidemia, HYPOKALEMIA Respiratory: NONE Gastrointestinal: constipation, GERD Hepatic: NONE Renal: chronic kidney disease, edema Musculoskeletal: falls Psychiatric: depression Endocrine: diabetes, hypothyroidism, vitamin D deficiency Blood Disorders: NONE Cancer(s): NONE CARD GRINDER/Reproductive: NONE History of MRSA: Yes History of VRE: No History of CDIFF: No Surgical History Surgical History: non-contributory Review of Systems Review of Systems Constitutional: Denies: chills, diaphoresis. EENTM: Denies: see HPI. Cardiovascular: Denies: see HPI. Respiratory: Reports: cough, short of breath. GI: Reports: abdominal pain, bloating, distention. Genitourinary: Reports: pain. Skin: Denies: cysts, change in skin color, dryness, erythema. Neurological/Psychological: Reports: cognitive dysfunction, confusion, dementia. All Other Systems: Reviewed and Negative Exam & Diagnostic Data Last 24 Hrs of Vital Signs/I&O 97.8 70 94/56 95 ON ra Physical Exam General Appearance No Acute Distress Skin No Rashes HEENT Atraumatic, PERRLA Neck Supple, No JVD Cardiovascular Normal S1, Normal S2 Lungs Clear to Auscultation Abdomen Normal Bowel Sounds (DISTENDED) Neurological Normal Gait (UNABLE TO FOLLOW COMMANDS) Extremities No Clubbing (EDEMA) Assessment/Plan Assessment: Patient accepted to inpatient hospice after family discussion. Goals of care to keep her comfortable. Code status comfort measures.
[2017-12-16 06:20] VITALS: BP 108/50
--- NOTE | 2017-12-16 12:17 | PN- Hospice ---
Subjective Subjective: non verbal, lethargic and altered mental status Review of Systems Constitutional: Denies: no symptoms. EENTM: Denies: no symptoms. Cardiovascular: Denies: no symptoms. Respiratory: Denies: no symptoms. Gastrointestinal: Denies: no symptoms. Genitourinary: Denies: no symptoms. Musculoskeletal: Denies: no symptoms. Skin: Denies: no symptoms. Neurological/Psychological: Denies: no symptoms. Hematologic/Endocrine: Denies: no symptoms. Objective Last 24 Hrs of Vital Signs/I&O Vital Signs Date Time Temp Pulse Resp B/P B/P Pulse O2 O2 Flow FiO2 Mean Ox Delivery Rate 12/17 619 98.5 93 22 108/50 96 Room Air Intake & Output 12/16 1600 12/16 0800 12/16 0000 Intake Total 0 0 Output Total 300 200 Balance -300 -200 Intake, Oral 0 0 Number 0 Bowel Movements Output, Urine 300 200 Physical Exam General Appearance: no apparent distress, comfortable Head: atraumatic Ears, Nose, Throat: normal ENT inspection Neck: normal inspection Respiratory: no respiratory distress Cardiovascular: regular rate/rhythm, edema Abdomen: soft, non-tender Current Medications: Current Medications Sig/Leo Start time Last Medication Dose Route Stop Time Status Admin Acetaminophen 650 MG Q4P PRN 12/15 1500 AC LA Artificial Tears 2 GTT Q2P PRN 12/15 1500 AC OU Bisacodyl 10 MG DAILY NEEDED PRN 12/15 1500 AC LA Glycerin 2 SPRAY Q4P PRN 12/15 1500 AC PO Glycerin/Mineral Oil 1 PETR Q8P PRN 12/15 1500 AC TOP Glycopyrrolate 400 MCG Q4 PRN 12/15 1500 AC IV Lorazepam 0.5 MG Q4 12/15 1800 AC 12/16 IV 0953 Morphine Sulfate 2 MG Q4 12/15 1800 AC 12/16 IV 0953 Morphine Sulfate 2 MG Q2P PRN 12/15 1500 AC IV Scopolamine HBr 1 PAT Q72 PRN 12/15 1500 AC TOP Assessment/Plan Hospice Assessment/Recommendations: ESRD Encephalopathy Problem List: 1. Acute renal failure 2. Renal failure Attending MD Review Statement Attending Statement Attending MD Statement: examined this patient, discuss w/resident/PA/SMALL BATTERY PLATE ASSEMBLER, agreed w/resident/PA/SMALL BATTERY PLATE ASSEMBLER, discussed with family, reviewed EMR data (avail), discussed with nursing, discussed with case mgmt, reviewed images, amended to note Attending Assessment/Plan: Patient with comfort care. Patient is receving morphine and ativan. Family bedside.
[2017-12-16 14:27] VITALS: BP 98/50
[2017-12-17 05:53] VITALS: BP 98/60
--- NOTE | 2017-12-17 11:44 | PN- Hospice ---
Subjective Subjective: non verbal, lethargic and altered mental status, bp 98/60. notin apparent distress Review of Systems Constitutional: Denies: no symptoms. EENTM: Denies: no symptoms. Cardiovascular: Denies: no symptoms. Respiratory: Denies: no symptoms. Gastrointestinal: Denies: no symptoms. Genitourinary: Denies: no symptoms. Musculoskeletal: Denies: no symptoms. Skin: Denies: no symptoms. Neurological/Psychological: Denies: no symptoms. Hematologic/Endocrine: Denies: no symptoms. Immunologic/Allergic: Denies: no symptoms. Objective Last 24 Hrs of Vital Signs/I&O Vital Signs Date Time Temp Pulse Resp B/P B/P Pulse O2 O2 Flow FiO2 Mean Ox Delivery Rate 12/17 0553 97.6 84 24 98/60 93 Room Air 12/16 1427 98.9 98 22 98/50 94 Room Air Intake & Output 12/17 1600 12/17 0800 12/17 0000 Intake Total 40 0 Output Total 150 225 Balance -110 -225 Intake, IV 40 Intake, Oral 0 Output, Urine 150 225 Physical Exam General Appearance: no apparent distress, comfortable Head: atraumatic Ears, Nose, Throat: normal ENT inspection Neck: normal inspection Respiratory: no respiratory distress Cardiovascular: regular rate/rhythm, edema Current Medications: Current Medications Sig/Leo Start time Last Medication Dose Route Stop Time Status Admin Acetaminophen 650 MG Q4P PRN 12/15 1500 AC WI Artificial Tears 2 GTT Q2P PRN 12/15 1500 AC OU Bisacodyl 10 MG DAILY NEEDED PRN / 1500 AC WI Glycerin 2 SPRAY Q4P PRN 12/15 1500 AC PO Glycerin/Mineral Oil 1 PETR Q8P PRN 12/15 1500 AC TOP Glycopyrrolate 400 MCG Q4 PRN 12/15 1500 AC IV Lorazepam 1 MG Q4 12/17 1400 UNVr IV Lorazepam 0.5 MG Q4 / 1800 DC 12/17 IV 0917 Morphine Sulfate 2 MG Q4 / 1800 AC 12/17 IV 0537 Morphine Sulfate 2 MG Q2P PRN 12/15 1500 AC 12/17 IV 0838 Scopolamine HBr 1 PAT Q72 PRN 12/15 1500 AC TOP Assessment/Plan Hospice Assessment/Recommendations: ESRD Encephalopathy Problem List: 1. Acute on chronic renal failure 2. Acute renal failure 3. Chronic renal failure 4. Anemia Attending MD Review Statement Attending Statement Attending Assessment/Plan: Patient with comfort care. Patient is receving morphine and ativan. Family bedside.
[2017-12-17 13:59] VITALS: BP 97/55
[2017-12-18 05:52] VITALS: BP 86/54
--- NOTE | 2017-12-18 11:13 | PN- Hospice ---
Subjective Subjective: not in apparent distress, vital noted. comfortable in bed. Review of Systems Constitutional: Denies: no symptoms. EENTM: Denies: no symptoms. Cardiovascular: Denies: no symptoms. Respiratory: Denies: no symptoms. Gastrointestinal: Denies: no symptoms. Genitourinary: Denies: no symptoms. Musculoskeletal: Denies: no symptoms. Skin: Denies: no symptoms. Neurological/Psychological: Denies: no symptoms. Hematologic/Endocrine: Denies: no symptoms. Immunologic/Allergic: Denies: no symptoms. Objective Last 24 Hrs of Vital Signs/I&O Vital Signs Date Time Temp Pulse Resp B/P B/P Pulse O2 O2 Flow FiO2 Mean Ox Delivery Rate 12/18 0552 98.3 88 8 86/54 91 Room Air 12/17 1359 98.0 89 22 97/55 93 Room Air Intake & Output 12/18 1600 12/18 0800 12/18 0000 Intake Total 100 20 Output Total 100 250 Balance 0 -230 Intake, IV 100 20 Output, Urine 100 250 Physical Exam General Appearance: no apparent distress, comfortable Head: atraumatic Neck: normal inspection Respiratory: no respiratory distress Cardiovascular: regular rate/rhythm, edema Current Medications: Current Medications Sig/Leo Start time Last Medication Dose Route Stop Time Status Admin Acetaminophen 650 MG Q4P PRN 12/15 1500 AC SC Artificial Tears 2 GTT Q2P PRN 12/15 1500 AC OU Bisacodyl 10 MG DAILY NEEDED PRN / 1500 AC SC Glycerin 2 SPRAY Q4P PRN / 1500 AC PO Glycerin/Mineral Oil 1 PETR Q8P PRN 12/15 1500 AC TOP Glycopyrrolate 400 MCG Q4 PRN 12/15 1500 AC IV Lorazepam 1 MG Q4 12/17 1400 AC 12/18 IV 1023 Lorazepam 1 MG Q2P PRN 12/17 1215 AC 12/18 IV 0333 Lorazepam 0.5 MG Q4 12/15 1800 DC 12/17 IV 0917 Morphine Sulfate 2 MG Q4 / 1800 AC 12/18 IV 1022 Morphine Sulfate 2 MG Q2P PRN / 1500 AC 12/18 IV 0333 Scopolamine HBr 1 PAT .STK-MED ONE 12/17 1123 [facility] 12/17 1124 Scopolamine HBr 1 PAT Q72 PRN 12/15 1500 12/17 TOP 1149 Assessment/Plan Hospice Assessment/Recommendations: Encephalopathy ESRD Problem List: 1. Acute on chronic renal failure 2. Chronic renal failure 3. Anemia Attending MD Review Statement Attending Statement Attending MD Statement: examined this patient, discussed with family, discussed with nursing Attending Assessment/Plan: Patient with comfort care. Patient is receving morphine and ativan. Family bedside.
[2017-12-18 13:29] VITALS: BP 90/50
[2017-12-19 06:30] VITALS: BP 86/40
--- NOTE | 2017-12-19 11:30 | PN- Hospice ---
Subjective Subjective: vitals noted, family bedside. Apeears to be comfortable with low respirations. Review of Systems Constitutional: Denies: no symptoms. EENTM: Denies: no symptoms. Cardiovascular: Denies: no symptoms. Respiratory: Denies: no symptoms. Gastrointestinal: Denies: no symptoms. Genitourinary: Denies: no symptoms. Musculoskeletal: Denies: no symptoms. Skin: Denies: no symptoms. Neurological/Psychological: Denies: no symptoms. Objective Last 24 Hrs of Vital Signs/I&O Vital Signs Date Time Temp Pulse Resp B/P B/P Pulse O2 O2 Flow FiO2 Mean Ox Delivery Rate 12/19 0630 99.4 90 10 86/40 91 Room Air 12/18 1329 98.2 90 10 90/50 90 Room Air Intake & Output 12/19 1600 12/19 0800 12/19 0000 Intake Total 40 0 Output Total 150 250 Balance -110 -250 Intake, IV 40 Intake, Oral 0 Output, Urine 150 250 Physical Exam General Appearance: no apparent distress Head: atraumatic Ears, Nose, Throat: normal ENT inspection Neck: normal inspection Respiratory: no respiratory distress Cardiovascular: regular rate/rhythm, edema Extremities: swelling Current Medications: Current Medications Sig/Leo Start time Last Medication Dose Route Stop Time Status Admin Acetaminophen 650 MG Q4P PRN / 1500 AC CO Artificial Tears 2 GTT Q2P PRN / 1500 AC OU Bisacodyl 10 MG DAILY NEEDED PRN / 1500 AC CO Glycerin 2 SPRAY Q4P PRN / 1500 AC PO Glycerin/Mineral Oil 1 PETR Q8P PRN / 1500 AC TOP Glycopyrrolate 400 MCG Q4 PRN / 1500 AC 12/19 IV 0157 Lorazepam 1 MG Q4 / 1400 AC 12/19 IV 0937 Lorazepam 1 MG Q2P PRN / 1215 AC 12/18 IV 2012 Morphine Sulfate 2 MG Q4 / 1800 AC 12/19 IV 0936 Morphine Sulfate 2 MG Q2P PRN / 1500 AC 12/18 IV 2012 Scopolamine HBr 1 PAT Q72 PRN / 1500 AC 12/17 TOP 1149 Assessment/Plan Hospice Assessment/Recommendations: Encephalopathy ESRD Hypotension Problem List: 1. Acute on chronic renal failure 2. UTI (urinary tract infection) Attending MD Review Statement Attending Statement Attending MD Statement: examined this patient, discussed with family, discussed with nursing Attending Assessment/Plan: Patient with comfort care. She is mildly hypotensive today with decresed respirations. Patient is receving morphine and ativan. Appears comfortably lying in bed. Family bedside.
[2017-12-19 14:40] VITALS: BP 87/45
--- NOTE | 2017-12-22 13:49 | Discharge Summary ---
Visit Information Visit Dates Admission Date: 12/15/17 Discharge Date: 12/20/17 Hospital Course Course Attending Physician: Иван Gillis MD Primary Care Physician: Gloria WHEELER,[facility] Course: Ms Zamarripa is a 77-year-old woman who is primarily german speaking w/ a past medical history of CHF, hyperlipidemia, hypokalemia, Alzheimer's dementia, end-stage renal disease, diabetes, hypothyroidism, multiple recent falls was brought to the ER with a chief concern of altered mental status likely secondary to ESRD resulting from decreased po intake. Patient Being treated for ALLIE and MRSA UTI. Her clinical conditon not improved despite intravenosu fluids. Nephrology consulted and recommend hospice evalauiton as not candidate for dialysis as per family/nephrology. Do not dialyse status. Patient care is transitioned to inpatient hospice. Allergies: Coded Allergies: NO KNOWN ALLERGIES (08/01/14) Disposition Summary Disposition Principal Diagnosis: Pateint was katherine heller as per family wishes and she in hospice bed. Additional Diagnosis: ESRD Discharge Disposition: Discharge Instructions General Discharge Information Code Status: Hospice (NA) Patient's Diet: N/A Patient's Activity: N/A Follow-Up Instructions/Appts: N/A Copies To: PCP Attending MD Review Statement Documenting Attending: Иван Gillis MD
== END 2017-12-20 02:00 | disposition expired | DRG 682 ==
LOC: 2NA 13:40
DX: N17.9 Acute kidney failure, unspecified (principal); G93.40 Encephalopathy, unspecified; N39.0 Urinary tract infection, site not specified; Z51.5 Encounter for palliative care; I95.9 Hypotension, unspecified; I50.9 Heart failure, unspecified; N18.6 End stage renal disease; E11.22 Type 2 diabetes mellitus with diabetic chronic kidney disease; G30.9 Alzheimer's disease, unspecified; B95.62 Methicillin resistant Staphylococcus aureus infection as the cause of diseases classified elsewhere; F02.80 Dementia in other diseases classified elsewhere, unspecified severity, without behavioral disturbance, psychotic disturbance, mood disturbance, and anxiety; E03.9 Hypothyroidism, unspecified; E78.5 Hyperlipidemia, unspecified; K21.9 Gastro-esophageal reflux disease without esophagitis
CPT/HCPCS: 2NASP